=== PATIENT | female | born 1930 | race Caucasian/White ===

== ENCOUNTER 2017-01-23 07:00 | Day surgery (SDC) | payer MEDICARE, BC ==
[~2017-01-23] VITALS: Ht 167.6 cm; Wt 53.5 kg
[~2017-01-23 07:00] MED LIST: CALCIUM 500 MG1 EAC1 PO; CEPHALEXIN500 MG PO; DIGITEK125 MCG PO; DIGOXIN125 MCG; DIPHENOXYLATE-1 EACH PO; FOLIC ACID1 MG PO; FUROSEMIDE20 MG PO; LEVOTHYROXINE75 MCG PO; MOEXIPRIL HCL7.5 MG PO; NORCO 5-325 TA1 EACH PO; PRAVASTATIN SOD40 MG PO; PREDNISONE10 MG PO; PREDNISONE20 MG PO; SPIRONOLACTONE25 MG PO; SYNTHROID25 MCG; TIMOLOL MALEATE5 M1 OPTH; VITAMIN D31000 UNIT PO; XALATAN2.5 ML OPTH; XARELTO20 MG PO
[2017-01-23] MEDS ORDERED: MAPAP325 MG PO (10:12)
[2017-01-23] MEDS ORDERED: HYDROCODON-ACE1 EA10 PO (10:12)
--- NOTE | 2017-01-28 10:36 | OR ---
[facility] [address], [place] [address] Signed PREOPERATIVE DIAGNOSIS Underwent excision of a pigmented lesion in the left lower anteromedial leg by Dr. 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 She is referred for definitive re-excision.She is noted to have had melanoma in the past, undergoing excision of a left upper arm melanoma number of years ago at least 25 years ago. She has had a basal cell carcinoma of her forehead excised as well. She has other pertinent medical problems including atrial fibrillation and anticoagu l ation with Xarelto as well as chronic lymphocytic leukemia. She has had significant varicosities of the lower extremities as well. She does take prednisone 10 mg every other day currently. She is admitted to undergo excision of the melanoma site on the le f t lower leg in medial aspect with possible application of rotational flap depending on needs at time of the excision. The lesion is not directly on the anterior noel, which almost certainly requires a rotational flap or skin graft but more medial to that, for which primary closure may be a possibility. Avoidance of the rotational flap would probably be optimal, given her venous insufficiency on that side. I have prepared for an Unna boot application as well if necessary to optimize wound healing. Patient and her understand the risks of bleeding, infection, recurrence, need for additional treatment should a deeper melanoma lesion had been identified and other unforeseen complications and wished to proceed. FINDINGS The excoriated area of excision show ed no sign of suture at this time. Mild inflammation of the operative site was noted. Wide excision was undertaken with a 1 cm margin from the furthest edge of erythema related to the lesion. Additional excision was undertaken cephalad and excision of dog ears to allow for appropriate closure with most optimal cosmetic affect. PROCEDURE IN DETAIL The patient was brought to operating room, placed in supine position. She was given intravenous sedation by the oakes machine operator. Preoperative antibiotic clindamycin wa s administered. Sequential compression device was applied to the other extremity. The left leg was prepared with a chlorhexidine solution and draped sterilely. Heparin was subcutaneously administered. Photograph was taken of the primary lesion and a margin at minimum of 1 cm was marked out from the area of erythema at the base of the excision site. The longer margin was taken superior and inferiorly. Incision was made with a 15 blade down to the fascial layer of the muscular compartment. Electrocautery was u sed for hemostasis. Full-thickness excision was accomplished.There was no give of the skin and soft tissue more laterally where the tibia was noted, as was expected. Mobilization of the soft tissue and skin medially was able to be accomplished, allowing f o r primary approximation. The wound was closed in layers with interrupted 2-0 Vicryl in the deep dermal layer. Prominent dog ears were excised superiorly and inferiorly, extending the Electronically Signed By: SHUKRI GOMEZ MD 01/28/17 1036 PATIENT NAME: SAEED OBRIEN OPERATIVE REPORT DATE OF : 32 PHYSICIAN: SHUKRI GOMEZ MD REPORT #: [id number] REPORT IS CONFIDENTIAL AND NOT TO BE RELEASED WITHOUT AUTHORIZATION [address] [address] Signed incision size to approximately 9 cm but improving the cosmetic appearanc e markedly. The skin was closed with a running 5-0 nylon suture. A Mepilex silver sponge dressing was applied. The leg was cleansed, and an Unna boot applied based on her underlying varicosities so as to support wound healing. A Coban dressing was loosely applied after that. She was allowed to emerge from sedation and taken to recovery room in good condition having suffered no known complications. Blood loss minimal. Sponge, needle, and instrument counts were reported as correct x3. MD STANLEY Irwin/Evelyn /[id number] cc: MD Melo Ang MD Jeffrey Stiles, MD Electronically Signed By: SHUKRI GOMEZ MD 01/28/17 1036 PATIENT NAME: SAEED OBRIEN OPERATIVE REPORT DATE OF : 32 PHYSICIAN: SHUKRI GOMEZ MD REPORT #: [id number] REPORT IS CONFIDENTIAL AND NOT TO BE RELEASED WITHOUT AUTHORIZATION
== END 2017-01-23 11:00 | disposition home or self-care (01) ==
LOC: DS 07:00
PROVIDERS: Surgery
PROC: 0HBLXZZ Excision of Left Lower Leg Skin, External Approach (ICD-10-PCS; principal; 2017-01-23 08:15)
DX: C76.52 Malignant neoplasm of left lower limb (principal); L57.0 Actinic keratosis; I10 Essential (primary) hypertension; I48.2 Chronic atrial fibrillation; Z85.820 Personal history of malignant melanoma of skin; Z88.0 Allergy status to penicillin; Z88.2 Allergy status to sulfonamides; Z98.41 Cataract extraction status, right eye; Z98.42 Cataract extraction status, left eye; Z90.710 Acquired absence of both cervix and uterus; Z90.49 Acquired absence of other specified parts of digestive tract; Z98.890 Other specified postprocedural states
CPT/HCPCS: 00400; 82310; 88305; J2704; J3010; J3490; J7120

== ENCOUNTER 2017-06-13 16:42 | Inpatient (IN) | payer MEDICARE, BC ==
[~2017-06-13] VITALS: Ht 167.6 cm; Wt 53.0 kg
[~2017-06-13 16:42] MED LIST changes: +HYDROCODON-ACE1 EA10 PO; +MAPAP325 MG PO
[2017-06-13] MEDS ORDERED: DIGITEK125 MCG PO (18:18)
[2017-06-13] MEDS ORDERED: XARELTO20 MG PO (18:18)
--- NOTE | 2017-06-14 00:06 | NUR ---
PT ARRIVED ON FLOOR AT 2230. PT SO FAR HAD 4MG OF IV ZOFRAN AND 6.25MG IV PHENERGAN. NO VOMITING NOTED SO FAR. BOWEL TONES ARE PRESENT, ABD IS FIRM AND TENDER TO TOUCH. PT IS RESTING AT THIS TIME. IS AT BEDSIDE. PT HAS HOME MEDS IN KITS LIST.
--- NOTE | 2017-06-14 02:05 | NUR ---
PT DENIES N/V AND PAIN AT THIS TIME. PT COMPLAINES OF DIZZINESS. ALL LOBES ARE CLEAR, V/S ARE WDL, BOWEL TONES ARE PRESENT IN ALL QUADRANTS, PT IS TOLERATING ICE CHIPS SO FAR. PT SEEMS WEAK OVERALL. PT IS BACK IN BED RESTING.
--- NOTE | 2017-06-14 03:58 | NUR ---
PT IS SLEEPING AT THIS TIME.
--- NOTE | 2017-06-14 04:56 | NUR ---
ASSISTED PT TO [facility] AGAIN. PT DID NOT VOID. PT AT THIS TIME STILL HAS DIZZINESS AND ALSO VISIBLE TREMORS NOW. PT IS NOT ORIENTED TO DAY AND CIRCUMSTANCE. PERLLA WAS POSITIVE. ARM STRENGTH IS WEAK BILATERALLY, LEG STRENGTH IS MODERATE BILATERALLY.
--- NOTE | 2017-06-14 05:29 | NUR ---
PT HAD A CIWA SCORE OF 8. MD RASH WAS CALLED BECAUSE OF CIWA SCORE AND NEW ALTERED MENTAL STATUS IN REGARDS TO CIRCUMSTANCE AND DAY. ORDER FOR 1MG OF ATIVAN IV ONCE WAS GIVEN.
--- NOTE | 2017-06-14 06:47 | NUR ---
PT OVERALL HAS WORSEND THIS SHIFT SINCE ARRIVAL ON THE FLOOR. PT HAD NAUSEA AT ARRIVAL, 4MG OF ZOFRAN AND THEN 6.25MG OF PHENERGAN WAS GIVEN. AT AROUND 0500 PT STARTED TO HAVE TREMORS AND WAS DISORIENTED TO SITUATION AND DAY. THIS WAS NEW FOR THIS PT. CIWA WAS DONE BECAUSE PT IS A DAILY DRINKER, HER SCORE WAS AN 8. MD RASH WAS CALLED. 1MG OF ATIVAN WAS GIVEN. PT AT THIS TIME IS SLEEPING. BOWEL TONES ARE PRESENT IN ALL QUADRANTS, ABD IS FIRM AND TENDER TO TOUCH.
--- NOTE | 2017-06-14 07:10 | NUR ---
BEDSIDE HANDOFF REPORT RECEIVED FROM SERVICES EXECUTIVE RN. PT SLEEPING LEFT UNDISTURBED, AT BEDSIDE. PT ON 3L NC, O2 SATS 98%. IV FLUIDS INFUSING AT 100 ML/HR.
--- NOTE | 2017-06-14 07:32 | EKG ---
[facility] [address] [facility] [place] [address] Signed Atrial fibrillation with slow ventricular response Right superior axis deviation Low voltage QRS Cannot rule out Anteroseptal infarct (cited on or before 16-JAN-2017) Abnormal ECG When compared with ECG of 16-JAN-2017 13:50, T wave inversion less evident in Inferior leads T wave inversion no longer evident in Lateral leads Confirmed by MILTON CARLSON MD ([id number]) on 06/14/2017 7:32:21 AM Electronically Signed By: MILTON CARLSON MD 06/14/17 0732 PATIENT NAME: SAEED OBRIEN Electrocardiogram DATE OF : 32 PHYSICIAN: MILTON CARLSON MD REPORT #: [id number] REPORT IS CONFIDENTIAL AND NOT TO BE RELEASED WITHOUT AUTHORIZATION
--- NOTE | 2017-06-14 07:50 | NUR ---
CALLED TO PT ROOM, CONCERN FROM CASE MANAGEMENT. VSS. PT DROWSY, AROUSABLE TO VOICE, ORIENTED X3. PT DENIES NUMBNESS AND TINGLING, LEFT FOOT NUMBNESS AT BASELINE. PULSES PALPABLE, SKIN WARM TO THE TOUCH. PT CONTINUES TO COMPLAINT NAUSEA. IV FLUIDS INFUSING NS AT 100 ML/HR. LUNG SOUNDS CLEAR, O2 SATS 98% ON 3L NC. BOWEL TONES ACTIVE. CMS INTACT. PT DENIES PAIN. PT DENIES NEEDS AT THIS TIME, AT BEDSIDE.
--- NOTE | 2017-06-14 08:45 | NUR ---
PT BEING ASSISTED TO BEDSIDE COMMODE WITH ASSISTANT TRACK AND FIELD COACH. PT WITH BLACK WATERY EMESIS. PT GIVEN 4 MG IV ZOFRAN. GASTRIC OCCULT TST POSITIVE. PT ASSISTED BACK TO BED. ORDER FOR ABD ULTRASOUND. AT BEDSIDE.
--- NOTE | 2017-06-14 09:30 | NUR ---
PT WITH EMESIS, 200 ML OF BROWN WATERY FLUID. GIVEN 6.25 MG PROMETHAZINE IV, DISCUSSED SIDE EFFECT OF DOWSINESS. DAUGHTER AT [facility]. PT DENIES THER NEEDS AT THIS TIME.
--- NOTE | 2017-06-14 10:42 | NUR ---
PT ASSISTED TO BATHROOM. PT MOANING WITH MOVEMENT, DISCUSSED PAIN MANAGEMENT. PT REQUESTING PAIN MEDICATION, 0.5 MG IV DILAUDID GIVEN. PT RESTING IN BED. FAMILY AT BEDSIDE.
--- NOTE | 2017-06-14 12:00 | NUR ---
PT RESTING IN BED. PT STATES PAIN IS BETTER. PT DENIES NAUSEA AT THIS TIME. PT DOWSY AFTER MEDICATIONS, AROUSABLE TO VOICE. PT LUNG SOUNDS CLEAR, ON 3L NC O2 SATS 97-98%. PT HR IRREGULAR, TELEMETRY STARTED PER ORDER. BOWEL TONES ACTIVE. NO ACUTE CHANGES AT THIS TIME. PT DENIES OTHER NEEDS AT THIS TIME.
--- NOTE | 2017-06-14 12:10 | NUR ---
PATIENT IS SLEEPING DAUGHTER IS IN ROOM. JUST STEPPED OUT FOR A LITTLE BIT.
--- NOTE | 2017-06-14 12:36 | NUR ---
PT ASLEEP, DAUGHTER IRIS SITTING WITH PT. I CAN TELL SHE IS VERY WORRIED, IRIS MENTIONED THAT SHE WAS WAITING FOR ULTRASOUND RESULTS. SHE SENT HER DAD HOME TO GET SOME REST. EXTENDED A BLESSING, WILL CONTINUE TO FOLLOW
--- NOTE | 2017-06-14 14:51 | NUR ---
PT RESTING IN BED. PT DENIES PAIN AT THIS TIME. COMPLAINT OF NAUSEA, RECENTLY RECEIVED ZOFRAN, PROVIDED COOL CLOTH TO BACK OF NECK. PT DENIES OTHER NEEDS AT THIS TIME.
--- NOTE | 2017-06-14 15:16 | NUR ---
PT CONTINUES TO BE NAUSEATED. GIVEN 6.25 MG IV PROMETHAZINE. AT BEDSIDE. DENIES OTHER NEEDS AT THIS TIME.
--- NOTE | 2017-06-14 16:45 | NUR ---
PT RESTING IN BED. PT RATING PAIN 0/10 AT REST. PT ON 3L NC, LUNG SOUNDS CLEAR. PT CONTINUIES TO BE DROWSY AFTER PROMETHAZINE. CONTINUES TO HAVE NAUSEA, RECEIVING PRN ZOFRAN AND PROMETHAZINE, BOWEL TONES ABSENT. IV FLUIDS INFUSING AT 100 ML/HR. PT NPO AT THIS TIME. FAMILY UPDATED ON PLAN OF CARE. DENIES NEEDS AT THIS TIME.
--- NOTE | 2017-06-14 17:24 | NUR ---
PT BOWEL TONES NOW ABSENT. PT HAVING PAIN WITH MOVEMENT, ONCE IN BED RATING PAIN 0/10. MD DR. CARLSON AND DR. GOMEZ NOTIFIED OF CHANGE IN PT CONDITION. FAMILY AT BEDSIDE.
--- NOTE | 2017-06-14 19:00 | NUR ---
BEDSIDE REPORT RECEIVED FROM YONI HI. PT SITTING UP IN BED, SPO2 97% ON 3L NC, HR 114. IVF BOLUS, AND CLINDAMYCIN INFUSING WNL. PT BOWEL TONES ABSENT X 4. PT ABDOMEN VERY TENDER WITH LIGHT PALPATION THROUGHOUT. PT ON TELE. PT DROWSY. DR. GOMEZ IN TO SEE PT, CONSENT SIGNED BY PT'S , FAMILY PRESENT IN ROOM. DISPENSARY ATTENDANT NICHOL IN ROOM PROVIDING SURGICAL PREP SCRUB. CALL LIGHT IN REACH.
--- NOTE | 2017-06-14 19:00 | NUR ---
MD TO BEDSIDE. PLAN TO BEGIN LR FLUID BOLUS, START CLINDAMYCIN, PREP PT FOR OR.
--- NOTE | 2017-06-14 19:13 | NUR ---
SIGNED CONSENT IN CHART. REVIEWED WITH . ABX INFUSING, LR BOLUS INFUSING, CHLORAHEXIDINE BATH COMPLETED. BEDSIDE HANDOFF REPORT GIVEN.
--- NOTE | 2017-06-14 19:45 | NUR ---
PT OFF FLOOR WITH SURGERY RN BY HOSPITAL BED. FAMILY TOOK PT'S BELONGINGS TO WAITING ROOM AREA.
--- NOTE | 2017-06-14 21:30 | NUR ---
PT ARRIVED TO FLOOR FROM SURGERY, OR NURSES, SINTERING PRESS OPERATOR, AND DR. GOMEZ AT BEDSIDE. PT IS INTUBATED, BVM IS CONNECTED TO OXYGEN. R.T. IN ROOM TO SWITCH PT OVER TO VENTILATOR. SINTERING PRESS OPERATOR ADMINISTERED KETAMINE AND PROPOFOL IV. ART LINE IN PLACE. VENT SETTINGS: CMV, FIO2:98%, PS:0, VT:470, PEEP:50. BILATERAL WRISTS PLACED IN RESTRAINTS PER DR. GOMEZ TO PREVENT PT FROM DISLODGING TUBE AND POTENTIAL SELF INJURY. PER DR. GOMEZ RASS SCORE GOAL IS -2, PT CURRENTLY AT -4. LUNGS SOUND CLEAR. HR REGULAR. BOWEL TONES ABSENT, ABDOMEN FEELS SOFT. MIDLINE INCISION COVERED WITH MEPILEX AND GAUZE THAT ARE C/D/I. SCD'S IN PLACE. ELMORE IN PLACE, CHANGED BAG TO UROMETER.
--- NOTE | 2017-06-14 22:40 | NUR ---
STARTED MAINTENANCE IV FLUIDS AND PROPOFOL AT 5MCG/KG/MIN. VENT SETTINGS CHANGED TO: SIMV, PS:10, VT: 470, PEEP:5 ABG DRAWN FROM ARTERIAL LINE.
--- NOTE | 2017-06-14 23:50 | NUR ---
PT MOVING ARMS AND LEGS, PROPOFOL INCREASED TO 10MCG/KG/MIN. NOTIFIED DR. GOMEZ OF THIS AND THAT PT'S BP READINGS HAVE BEEN SOFT, 80S/40S. RECEIVED ORDER TO WEAN OFF PROPOFOL AND ADD TO EMAR: 0.5-1.0MG IV Q1 HOUR PRN SEDATION AND 1-10MG IV MORPHINE Q1 HOUR PRN PAIN/SEDATION. PROPOFOL TURNED OFF, RASS -2. 1MG IV ATIVAN ADMINISTERED.
--- NOTE | 2017-06-15 | NUR ---
R.T. IN TO PROVIDE ORAL CARE, SUCTIONING, AND REPOSITION TUBE TO LEFT SIDE OF MOUTH. CHECKED RESTRAINTS. GOOD CAP REFILL. WILL CONTINUE TO MONITOR.
--- NOTE | 2017-06-15 01:00 | NUR ---
NO URINE OUT IN LAST HOUR, PREVIOUS HOUR ONLY HAD 6ML. PER DR. GOMEZ, 500ML LR BOLUS ADMINISTERED. RASS: -3. WILL CONTINUE TO MONITOR.
--- NOTE | 2017-06-15 02:00 | NUR ---
IN TO CHECK ON PT. RASS -4. NO APPARENT DISTRESS. RESTRAINTS CHECKED, CMS INTACT. PLACED PILLOW UNDER RIGHT HIP TO SLIGHTLY ROLL PT MORE TO LEFT SIDE. WILL CONTINUE TO MONITOR.
--- NOTE | 2017-06-15 03:00 | NUR ---
IV ABX INFUSION STARTED. RASS: -4. BP:90/44(90) ARTERIAL: 76/39(50). HR:90. RR:16, SPO2:100%. VENT: SIMV, FIO2:40, PS:10, VT: 470, PEEP:5, PIP:20 ETCO2:31. UO WAS 15 THIS HOUR, WILL START ANOTHER 500ML LR BOLUS ONCE CLINDAMYCIN INFUSION IS COMPLETED.
--- NOTE | 2017-06-15 03:30 | NUR ---
ASSESSMENT COMPLETED. PT REMAINS OBTUNDED, RASS:-4. LUNGS SOUND CLEAR. HR IRREGULAR. BOWEL TONES ABSENT. ABDOMEN APPEARS MILDLY DISTENDED, FEELS MORE FIRM THAN EARLIER, PT GRIMACES UPON PALPATION OF ABDOMEN. VENT SETTINGS UNCHANGED, WILL CONTINUE TO MONITOR.
--- NOTE | 2017-06-15 04:15 | NUR ---
CALLED AND UPDATED DR. GOMEZ ON PT'S LOW URINE OUTPUT AND MOST RECENT BP READINGS. I ALSO LET HIM KNOW THAT I REPEATED THE 500ML LR BOLUS X2. NEW ORDER RECEIVED: CBC, CHEM2, AND MAGNESIUM. HE ALSO STATED TO ORDER TYPE AND CROSS IF NOT ALREADY DONE, WHICH IT HAD BEEN. NEW ORDERS FOR ONE TIME 1L LR BOLUS OVER 30MIN, AND IF UO DOES NOT IMPROVE AFTER THAT TO ADMINISTER A ONE TIME DOSE OF 20MG IV LASIX. LABS DRAWN FROM ARTERIAL LINE AND SENT. BOLUS STARTED. PT REPOSITIONED IN BED ONTO RIGHT SIDE AND R.T. IN TO DO ORAL CARE AND SUCTIONING. WILL CONTINUE TO MONITOR.
--- NOTE | 2017-06-15 05:37 | NUR ---
URINE OUTPUT NOT IMPROVING AFTER 1L LR BOLUS COMPLETED. 20MG IV LASIX ADMINISTERED. PT APPEARED PAINFUL, GRIMACING AND MOVING HANDS, 4MG IV MORPHINE ADMINISTERED. WILL CONTINUE TO MONITOR.
--- NOTE | 2017-06-15 06:00 | NUR ---
CALLED AND UPDATED DR. GOMEZ ON PT'S LOW BP AND LOW UO AFTER RECEIVING 1L LR BOLUS AND 20MG IV LASIX. UPDATED HIM ON PT'S LAB RESULTS WELL. NEW ORDERS RECEIVED TO ADMINISTER 1 UNIT ALBUMIN AND A ONE TIME DOSE OF 2GM IV MAGNESIUM.
--- NOTE | 2017-06-15 06:15 | NUR ---
STARTED ALBUMIN AND MAGNESIUM INFUSIONS. CHECKED RESTRAINTS. R.T. IN TO PROVIDE ORAL CARE AND SUCTIONING. REPOSITIONED PT TO BE FLAT IN BED. VENT: SIMV, FIO2:40%, PS:10, VT:470, PEEP:5 ETCO2:31, PIP:18 RECHECKED BP: 88/42 (52), ARTERIAL: 49/27(36)
--- NOTE | 2017-06-15 07:00 | NUR ---
CALLED DR. GOMEZ TO UPDATE HIM THAT INTERVENTIONS DO NOT SEEM TO BE MAKING A DIFFERENCE WITH PT'S BP AND UO. NEW ORDERS RECEIVED TO START PT ON NOREPINEPHERINE DRIP TO MAINTAIN SBP>90. I ALSO INFORMED HIM THAT HER PHOSPHORUS WAS LOW AND RECEIVED AND ORDER TO START HER ON POTASSIUM PHOSPHATE IV INFUSION.
--- NOTE | 2017-06-15 07:49 | NUR ---
REPORT RECIEVED FROM ZIPPER SLIDE ATTACHER, PATIENT RESTING IN BED ON BACK. AWAKENS TO VOICE, NO EYE CONTACT. RASS SCORE OF -2, -3. ABDOMEN SOFT AND TENDER, DRESSING C/D/I, LEVOPHED GTT AT 5MCG/MIN AND ART LINE JUST ZEROED AND USED FOR ABG DRAW. VENT SETTINGS UNCHANGED FROM EARLIER. TV 470, 40% FIO2, RR16, PEEP 5 AND PS 10.
--- NOTE | 2017-06-15 08:12 | NUR ---
DR CARLSON IN ROOM ASSESSING PATIENT, RT SUSSY HERE WITH TITUS RT. WEANING TRIALS STARTED.
--- NOTE | 2017-06-15 08:13 | NUR ---
OF PATIENT HERE TO SAY VERONICA. ORAL CARE COMPLETED.
--- NOTE | 2017-06-15 08:21 | NUR ---
EDUCATION TO FAMILY AND PATIENT.
--- NOTE | 2017-06-15 08:25 | NUR ---
Assisted Toni-RN in positioning pt onto right side.
--- NOTE | 2017-06-15 08:37 | NUR ---
DR GOMEZ IN TO SEE PATIENT, UPDATES GIVEN TO HIM VERBALLY.
--- NOTE | 2017-06-15 09:37 | NUR ---
FAMILY IN ROOM, PATIENT ACTING MORE PAINFUL. 4MG MORPHINE GIVEN SLOW IV PUSH.
--- NOTE | 2017-06-15 10:00 | CONS ---
[facility] [address], [place] [address] Signed DATE OF CONSULTATION: 06/14/2017 CONSULTING PHYSICIAN: Shukri Gomez MD PROBLEM: Abdominal pain, uncertain etiology. HISTORY OF PRESENT ILLNESS: This 86-year-old white woman is chronically anticoagulated with Xarelto for atrial fibrillation. She is known to me from the past having undergone re-excision of a melanoma on her leg and I have seen her over the past many years for various things. She is known to have had hysterectomy and appendectomy in the distant past. Yesterday, at about 2 p.m., she had rather significant generalized abdominal pain. It worsened enough that she presented to the emergency room where she was evaluated by Dr. Clark. The pain was not focal and generalized and she had associated nausea and vomiting. She did not yesterday take her Xarelto and certainly did not take it today. She was admitted by the hospitalist, Dr. Lopez, for further evaluation. Close observation found her to be worsening, not improving. Notably, her initial white count was 16.3 with hematocrit 47.0, band forms 4% at that time. Her urinalysis was essentially normal. Digoxin level therapeutic at 0.99. Chem profile overall normal, but bilirubin elevated at 2.0. Lipase and amylase were not obtained. Coag studies showed a pro-time of 15.9 with an INR of 1.3 and white count as described 16.3 with hematocrit of 47 and platelet count of 141,000. Today, her symptoms are not better, indeed worsened. Her white count is now elevated at 21.4, platelets 134,000. Her admit troponin levels were less than 0.010. A CT scan performed at the outset of her evaluation was essentially normal. The SMA and celiac axis appeared to be patent and without sign of embolic phenomenon. There was no sign of edema of the bowel or other issue. I have recommended some time earlier today the gallbladder ultrasound be performed, which was accomplished at approximately 10:20 this morning, showing a nondistended gallbladder with multiple nodules within the gallbladder consistent with adherent stones or polyps. The gallbladder wall was visible, but not particularly objectively thickened. The common bile duct was normal in caliber. Jasmine sign was considered negative. PAST MEDICAL HISTORY: 1. Atrial fibrillation with chronic anticoagulation. 2. History of melanoma excision. 3. Penicillin allergy (severe with inability to breathe). Electronically Signed By: SHUKRI GOMEZ MD 06/15/17 [facility] PATIENT NAME: SAEED OBRIEN CONSULTATION DATE OF : 32 PHYSICIAN: SHUKRI GOMEZ MD REPORT #: [id number] REPORT IS CONFIDENTIAL AND NOT TO BE RELEASED WITHOUT AUTHORIZATION [facility] [address], [place] [address] Signed 4. Sulfa medication allergy. 5. Chronic lymphocytic leukemia. 6. History of partial bladder prolapse with pessary. 7. History of chemotherapy with Rituxan. 8. Hepatitis A history. REVIEW OF SYSTEMS: The patient is unable to provide much of this due to somnolence. Her and daughter who are present with her note she has had no chest pain or shortness of breath, particularly. She has mainly had nausea and persistent abdominal pain. PHYSICAL EXAMINATION: GENERAL: Very subdued, very thin, white woman who looks to be quite unwell. HEENT: Mucous membranes are markedly dry. NECK: Trachea is midline. I detect no carotid bruit. CHEST: Shows diminished breath sounds. HEART: Regular. ABDOMEN: Shows generalized significant peritonitis with guarding at this time. EXTREMITIES: Show no clubbing or cyanosis. There is mild low-grade edema with obvious varicosities. DIAGNOSTIC DATA: I reviewed her ultrasound report as well as the ultrasound images, showing relatively benign-appearing gallbladder though the wall is visible, which in my opinion is usually abnormal. The CT scan was reviewed, which showed a thickened gallbladder wall to my exam. No sign of intrahepatic ductal dilatation or free air. No sign of small-bowel obstruction proper. The liver itself was reasonably normal in appearance. She has a sizable right pleural effusion also noted. ASSESSMENT: She has generalized peritonitis and is doing poorly. Additional fluids are needed at this time and intravenous antibiotics are needed as well. It may well be that she has cholecystitis as an underlying etiology for particularly given her right-sided pleural effusion and findings on ultrasound of the gallbladder itself. I have conferred with the pharmacist (Chivo) who notes a 24-hour time frame for clearance of her anticoagulant. Complicating her situation is inability to cross-match blood for her blood type due to a cold agglutinins problem. I have discussed these findings with Dr. Lopez and subsequently the patient and her , Cesar, and daughter, Harleen. I would recommend laparoscopy, possible laparoscopic cholecystectomy or laparotomy as necessary to remedy this problem. Without doubt, she will need to be in the intensive care unit postoperatively, possibly may need to remain intubated. Electronically Signed By: SHUKRI GOMEZ MD 06/15/17 1000 PATIENT NAME: SAEED OBRIEN CONSULTATION DATE OF : 32 PHYSICIAN: SHUKRI GOMEZ MD REPORT #: [id number] REPORT IS CONFIDENTIAL AND NOT TO BE RELEASED WITHOUT AUTHORIZATION [facility] [address] [place] [address] Signed She has significant comorbidities including right atrial enlargement; chronic lymphocytic leukemia, under treatment; chronic atrial fibrillation. However, I believe her to be salvageable, though definitely has increased risks of significant complications or even demise related to this. It is notable that her liver has an appearance on CT scan that is suggestive of cirrhotic changes, though she certainly has no coagulopathy and no true reason for a cirrhosis or anything of that sort and this may simply remain a senescent liver with artifactual distortion. There is no evidence upon my review of visceral arteries having embolism or thrombosis in any way, though the extent of her tenderness and so forth would be suggestive of possible ischemic bowel as well. I think that is unlikely, but not impossible obviously. I discussed in detail with the patient and her family the risks of bleeding, infection, need for unforeseen procedures, need for laparotomy and of course possibility of failure to cure the problem despite her best efforts to do so. They understand and wish to proceed. MD STANLEY Irwin/GRACE /[id number] cc: Ameena Lopez MD Electronically Signed By: SHUKRI GOMEZ MD 06/15/17 1000 PATIENT NAME: SAEED OBRIEN CONSULTATION DATE OF : 32 PHYSICIAN: SHUKRI GOMEZ MD REPORT #: [id number] REPORT IS CONFIDENTIAL AND NOT TO BE RELEASED WITHOUT AUTHORIZATION
--- NOTE | 2017-06-15 10:00 | OR ---
[facility] [address] [place], [place] [address] Signed DATE OF OPERATION: 06/14/2017 SURGEON: Shukri Gomez MD PREOPERATIVE DIAGNOSES: Generalized acute peritonitis, possible cholecystitis. POSTOPERATIVE DIAGNOSES: 1. Hemoperitoneum. 2. Infarcted mid small bowel secondary to internal hernia (closed loop obstruction). PROCEDURES: 1. Laparoscopy (diagnostic). 2. Laparotomy with small bowel resection, end anastomosis, and lysis of adhesion ([id number] functional end-to-end). 3. Peritoneal lavage and evacuation of hemoperitoneum. 4. Attempted right internal jugular and right subclavian line placement (failed). CUT OFF SAW OPERATOR METAL: Nurse. ANESTHESIA: General endotracheal, Nery Godoy CRNA. INDICATION: This 86-year-old white woman was admitted yesterday to the service of Dr. Lopez with generalized abdominal pain. A CT scan was unrevealing as to the source of the problem. She had an elevated white count yesterday, worsened today and with markedly worsening symptoms. I saw her late in the evening approximately 7o'clock upon consultation having her had undergone a gallbladder ultrasound in the late morning showing some gallstones. She is known to take Xarelto for chronic atrial fibrillation. Her CT scan and ultrasound performed were uncertain as to diagnosis. The clinical exam showed rigid abdomen, generalized peritonitis without question. On that basis, I recommended to Dr. Lopez and the patient and her family immediate exploration despite her ongoing use of Xarelto. She was last dosed with Xarelto just a bit more than 24 hours ago. The risks of bleeding, infection, need for open operation instead of a laparoscopic colon were all discussed in detail. The initial plan was for that of laparoscopic Electronically Signed By: SHUKRI GOMEZ MD 06/15/17 1000 PATIENT NAME: SAEED OBRIEN OPERATIVE REPORT DATE OF : 32 PHYSICIAN: SHUKRI GOMEZ MD REPORT #: [id number] REPORT IS CONFIDENTIAL AND NOT TO BE RELEASED WITHOUT AUTHORIZATION [facility] [address] [place], [place] [address] Signed cholecystectomy for possible gangrenous cholecystitis given her clinical symptoms and ultrasonographic findings, but other indicated procedures were permissible obviously. FINDINGS: On laparoscopy, bloody fluid of the peritoneal cavity was noted. Examination of the lower abdomen with the laparoscope demonstrated a segment of bowel. On that basis, immediate conversion to laparotomy was performed through midline incision revealing an internal herniation and complete closed loop obstruction of a segment of small bowel with complete infarction, but without perforation. There was generalized hemoperitoneum, likely related to her Xarelto use and the infarcted bowel. There was no actual bleeding lesion otherwise. Segmental resection of 2 feet of small bowel was undertaken with a [id number] functional end-to-end stapled anastomosis. Lavage of the abdomen was undertaken, removing the old blood. Blood loss from the old blood was about 300 mL. The liver, though generous, did not show any signs of cirrhosis or any other problem. The gallbladder had mild chronic inflammation, no acute inflammation. The stomach and remaining small bowel and colon were normal. Pelvic organs included the left salpinx and possibly the ovary, though this is uncertain. DESCRIPTION OF PROCEDURE: The patient was brought to the operating room, given a general endotracheal anesthetic. She was somewhat hemodynamically precarious and small amounts of pressor agent were used. Fluid resuscitation had been undertaken prior to operation and a Pratt catheter was placed. The abdomen was prepared with a chlorhexidine solution and draped sterilely. An infraumbilical incision was made and using an open Ry cannula technique, pneumoperitoneum was achieved to a level of 14 mmHg of carbon dioxide gas. Intraabdominal inspection showed generalized hemoperitoneum. There was a segment of ischemic bowel immediately noted. Indeed, it was black and purple and clearly . Delay of further interrogation of the abdomen by attempting laparoscopic approach was deemed completely inadvisable and the laparoscope was removed and immediate midline laparotomy performed. Found within the abdomen was a considerable amount of old liquified blood throughout. A small bowel that was ischemic was associated with far more small bowel also necrotic and it was found that she had an adhesive band causing an internal closed loop obstruction. This band was identified. The index finger divided with electrocautery, freeing the bowel loops to allow for evisceration of the small bowel from the abdomen. A clear demarcation of bowel versus live bowel was noted. This appeared to be in the mid small bowel. Immediate scoring of the mesentery was undertaken in application of hemostats, dividing the vascular pedicles quickly. A PATRICIA stapling device was used to transect the bowel and 2 areas of complete viability. The amount resected was 2 feet. With resection, she had prompt and immediate improvement of her hemodynamics. Electronically Signed By: SHUKRI GOMEZ MD 06/15/17 1000 PATIENT NAME: SAEED OBRIEN OPERATIVE REPORT DATE OF : 32 PHYSICIAN: SHUKRI GOMEZ MD REPORT #: [id number] REPORT IS CONFIDENTIAL AND NOT TO BE RELEASED WITHOUT AUTHORIZATION [address] [address] Signed The vascular pedicles were secured with 2-0 silk ties. A [id number] functional end-to-end enteroenterostomy was undertaken with a 75 mm PATRICIA stapling device. The anvil ends through which the limbs of the stapler passed were oversewn with interrupted 3-0 silk suture. The mesenteric defect was secured with interrupted 3-0 silk suture as well. Irrigation was undertaken throughout the peritoneal cavity evacuating old blood. Examination of the colon showed firm hard stool in the transverse colon and a floppy transverse colon of that. There appeared to be some remnants of pelvic organs including the left salpinx that could be told, but generally speaking, most intraabdominal organs were rather atretic, consistent with her advanced age of 86 years. The gallbladder was mildly dilated and mildly chronically inflamed, but not acutely inflamed and it was left in situ. The liver itself was somewhat generous, but did not have cirrhotic changes as I had considered based on review of the CT scan. Once the peritoneal cavity was free of blood, plans were made for closure. The midline fascia was reapproximated with running bidirectional #1 PDS suture. The subcutaneous tissue was irrigated and clips were used to secure the skin. A Mepilex silver sponge dressing and an OpSite were applied. The count was found to be off by one hemostat. On that basis, a plain abdominal x-ray was performed showing no evidence of intraabdominal retained instruments. It was later recalled that a hemostat had been used to help clean the umbilicus and the count was ultimately found to be correct. Given her acute critical illness, a central line was deemed advisable. A left-sided arterial line had been placed by the shale processing technician. Sterile drape in the neck and upper torso was undertaken and attempts at access to the right internal jugular vein were successful for withdrawing blood, but not in a sustained way and therefore was unsuccessful. A right subclavian approach was then attempted, again showing no ability to pass wire in a meaningful way. On that basis, further attempts were abandoned. It was deemed most appropriate to leave the patient intubated and transferred to the intensive care unit for further critical care management. Blood loss was 300 mL, virtually all of it related to old blood within the abdomen. The sponge, needle, and instrument counts were ultimately considered correct. Shukri Gomez MD Electronically Signed By: SHUKRI GOMEZ MD 06/15/17 1000 PATIENT NAME: SAEED OBRIEN OPERATIVE REPORT DATE OF : 32 PHYSICIAN: SHUKRI GOMEZ MD REPORT #: [id number] REPORT IS CONFIDENTIAL AND NOT TO BE RELEASED WITHOUT AUTHORIZATION [facility] [address] [facility] [place], [place] [address] Signed STANLEY/GRACE /[id number] cc: MD Dr. Azam Bender [facility] Electronically Signed By: SHUKRI GOMEZ MD 06/15/17 1000 PATIENT NAME: SAEED OBRIEN OPERATIVE REPORT DATE OF : 32 PHYSICIAN: SHUKRI GOMEZ MD REPORT #: [id number] REPORT IS CONFIDENTIAL AND NOT TO BE RELEASED WITHOUT AUTHORIZATION
--- NOTE | 2017-06-15 10:14 | NUR ---
AT 1005 LEVOPHED GTT TURNED UP TO 6MCG/MIN BECAUSE OF LOW BP.
--- NOTE | 2017-06-15 11:15 | NUR ---
TURNED TO LEFT SIDE, LEVOPHED GTT TURNED DOWN TO 5MCG/MIN BECAUSE BP UP TO 124/48
--- NOTE | 2017-06-15 12:11 | NUR ---
RT FINISHED WORKING WITH PATIENT AND PATIENT NOT READY FOR EXTUBATION CURRENTLY. CONTINUING ON SIMV SETTING. PIP HAS BEEN 10. DR CARLSON NOTIFIED VIA PHONE CALL. DR GOMEZ HERE ALSO. UPDATED ON PATIENT STATUS.
--- NOTE | 2017-06-15 12:15 | NUR ---
DR GOMEZ UPDATED ON THE LAST URINE OUTPUT OF ONLY 7ML FOR THE HOUR. NO FURTHER ORDERS AT THIS TIME.
--- NOTE | 2017-06-15 12:29 | NUR ---
BOTH DR CARLSON AND DR GOMEZ IN ROOM DISCUSSING CARE WITH FAMILY MEMBERS. PLAN TO PLACE A CENTRAL LINE TODAY. I AM ASSESSING IV SITE EVERY 15 MINUTES PER LEVOPHED PROTOCOL USING PERIPHERAL SITE.
--- NOTE | 2017-06-15 13:45 | NUR ---
FAMILY IN ROOM, PATIENT SLEEPING NOW. LEVOPHED GTT CONTINUES AT 6MCG/MIN, BP 128/45 HR 95. VENT SETTINGS UNCHANGED.
--- NOTE | 2017-06-15 14:09 | NUR ---
EDUCATION PROVIDED TO FAMILY ABOUT IV'S. PATIENT HAS LEVOPHED INFUSING INTO LEFT FOREARM IV. SITE ASSESSED EVERY [address] GOMEZ PLANNING TO PLACE CENTRAL LINE TODAY.
--- NOTE | 2017-06-15 16:00 | NUR ---
LEVOPHED TURNED DOWN FROM 6MCG/MIN TO 5MCG/MIN BECAUSE BLOOD PRESSURE 135/53
--- NOTE | 2017-06-15 16:31 | NUR ---
JUST FINISHED GIVING PATIENT A BED BATH WITH ASSIST FROM DELFINA GANT. SARA CARE AND CATH CARE COMPLETED. NEW LINENS GIVEN, HAIR WASHED, ORAL CARE DONE. WARM BLANKETS APPLIED TO FEET AND HANDS. FAMILY BACK INTO ROOM. AT 1500 I RACHEL BLOOD FROM ART LINE, FLUSHED WITH NS.
--- NOTE | 2017-06-15 17:07 | NUR ---
DR GOMEZ HERE TO ASSESS FOR CENTRAL LINE. LEVOPHED DROPPED DOWN TO 3MCG/MIN TO TEST FOR NEED FOR IT. BP IS 109/47
--- NOTE | 2017-06-15 17:50 | NUR ---
DR GOMEZ IN TO SEE PATIENT, CENTRAL LINE PLACED. LEFT SUBCLAVIAN.
--- NOTE | 2017-06-15 17:52 | NUR ---
PORTABLE CHEST XRAY HERE TO CONFIRM PLACEMENT.
--- NOTE | 2017-06-15 18:11 | NUR ---
MOVED TO LEFT SIDE. RESTING WITH EYES CLOSED, AWAKENS TO VOICE. RASS -2
--- NOTE | 2017-06-15 18:40 | NUR ---
propofol gtt started at 5 mcg/kg/min. family in room. ventilator settings changed to CMV per RT. Radiologist called and notified me of a small pneumo present in upper left chest. I am notifying DR Medina.
--- NOTE | 2017-06-15 18:46 | NUR ---
NEW ORDERS RECIEVED CHEST XRAY IN AT 1915 AND HAVE MINI CHEST TUBE SETUP KIT AT BEDSIDE. ALSO MONITOR FOR ANY CHANGES IN RESPIRATORY STATUS.
--- NOTE | 2017-06-15 19:00 | NUR ---
PROPOFOL UP TO 7.5MCG/KG/MIN, LEVOPHED UP TO 5MCG/MIN. FAMILY IN ROOM.
--- NOTE | 2017-06-15 19:05 | NUR ---
STARTING TO BE MORE AGITATED. PROPOFOL GTT INFUSING. DENYING PAIN.
--- NOTE | 2017-06-15 19:10 | NUR ---
LEVOPHED IV SITE WAS ASSESSED EVERY 15 MINUTES AND FOUND TO HAVE NO ISSUES. NOW IV'S ARE SALINE LOCKED AND USING ALL 3 PORTS OF THE CENTRAL LINE. PLEASE SEE PRINT OUT IN CHART FOR ALL VITAL SIGNS FROM THIS SHIFT.
--- NOTE | 2017-06-15 19:46 | NUR ---
REPORT RECEIVED FROM ORA VALLEJO. PT IS SITTING UP IN BED, AWAKE AND RESPONSIVE. ANSWERS QUESTIONS WITH YES OR NO, SHAKES HEAD NO SHE IS NOT IN PAIN AT THIS TIME. PROPFOL GTT INFUSING AT 7.5 MCG/KG/MIN AND LEVOPHED GTT INFUSING AT 5 MCG/MIN.
--- NOTE | 2017-06-15 20:11 | NUR ---
CXR REPORT CALLED TO DR GOMEZ, ORDER GIVEN TO REPEAT CXR IN ONE HOUR.
--- NOTE | 2017-06-15 20:20 | NUR ---
RT IN TO DO ORAL CARE AND REPOSITIONED ETT.
--- NOTE | 2017-06-15 20:40 | NUR ---
PT IS AWAKE, WITH EYES OPEN. PROPOFOL GTT TURNED UP TO 10MCG/MIN
--- NOTE | 2017-06-15 21:04 | NUR ---
4MG IV MORPHINE GIVEN FOR PAIN, PT WINCING WITH REPOSITIONING. XR IN TO DO CXR.
--- NOTE | 2017-06-16 00:10 | NUR ---
ASSESSMENT DONE AND PT REPOSITIONED UP IN BED. NODS YES THAT SHE IS HAVING ABDOMINAL PAIN, 4MG IV MORPHINE GIVEN. HR 80'S, BP 103/50 MAP 61, ETCO2 33, SPO2 100%.
--- NOTE | 2017-06-16 00:35 | NUR ---
RT IN TO DO ORAL CARE AND REPOSITION ETT.
--- NOTE | 2017-06-16 03:54 | NUR ---
PT AWAKENS AND IS PULLING AT RESTRAINTS, SEEMS UNCOMFORTABLE WITH ETT. PROPOFOL DRIP TITRATED UP AND IV MORPHINE 4MG GIVEN. PT QUICKLY BACK TO SLEEP. ASSESSMENT DONE, ABD REMAINS UNCHANGED, STILL VERY TENDER, NOT GETTING ANY MORE DISTENDED.
--- NOTE | 2017-06-16 04:41 | NUR ---
REPOSITIONED UP IN BED, PT AWAKENS AND ANSWERS QUESTIONS THEN BACK TO SLEEP. RT IN TO DO ORAL CARE AND REPOSITION ETT.
--- NOTE | 2017-06-16 06:10 | NUR ---
PT REPOSITIONED UP IN BED, DR CARLSON IN TO SEE PT, NEW ORDERS GIVEN FOR MAGNESIUM AND PHOSPHORUS REPLACEMENT, MAGNESIUM RIDER STARTED INFUSING. PT GRIMACING WITH MOVEMENT, 4MG IV MORPHINE GIVEN. RT IN TO DO CHECK ON PT.
--- NOTE | 2017-06-16 08:14 | NUR ---
CVP LINE SETUP THIS AM. CVP READING -1 TO 0 AT TIMES AFTER ZEROED.
--- NOTE | 2017-06-16 09:02 | NUR ---
DR GOMEZ INTO SEE PT THIS AM, NEW ORDERS RECEIVED. TO PROVIDE SEDATION VACTATION TO SEE IF PT IS ABLE TO TOLERATE BEING EXBUATED TODAY. PT URINE OUTPUT PICKED UP THIS LAST HOUR.
--- NOTE | 2017-06-16 09:30 | NUR ---
PTOPOFOL DRIPP OFF AT THIS TIME. 1030: LEVOPHED DRIP OFF AT THIS TIME 1050: PT EXUBATED AT THIS TIME, DID WELL WITH THIS AND IS ON NC AT 4 LITERS AT THIS TIME. PT REPOSITIONED, FLOATED ON TWO PILLOWS AT THIS TIME. 11:00 ORAL CARE COMPLETED AT THIS TIME. CHAP STICK APPLIED TO LIPS. 11:20 PT ASKING QUESTION REGARDING HOW THIS WHO PROCESS HAPPENED AND THE TIME LINE. EXPLAINED TO PT AND THEN SHE WENT BACK TO SLEEP. REMAINS AT THE BEDSIDE AT THIS TIME.
--- NOTE | 2017-06-16 10:02 | NUR ---
PT SEDATION IS OFF AT THIS TIME, RT PRESENT PT IS UNABLE TO LIFT HEAD OFF BED AT THIS TIME. WHEN PT IS ON CPAP. SHE IS HAVING APENA PEROIDS. RT CHANGED HER BACK TO CMV FOR A FEW MINUTES. NOW ON SIMV AND PULLING VOLUMNS OF UP TO 300'S.
--- NOTE | 2017-06-16 11:10 | NUR ---
RESTRAINTS REMOVED AT THIS TIME, PT WAS EXBUATED AT 1050 AND PT IS FOLLOWING DIRECTIONS AT THIS TIME.
--- NOTE | 2017-06-16 12:30 | NUR ---
PT REPOSITIONED TO HER RIGHT SIDE AT THIS TIME.
--- NOTE | 2017-06-16 13:07 | NUR ---
URINE OUTPUT HAS INCREASED SOME AT THIS TIME, WITH 1/2 OF THE 500MLS LR BOLUS INFUSED.
--- NOTE | 2017-06-16 13:23 | NUR ---
SEE PT CHART FOR Q 15MINUTE VS.
--- NOTE | 2017-06-16 13:25 | NUR ---
1040 Pt passed weaning parameters she was unable to pass the niff do to a poor understanding of what was being asked of her . She was explained about the tube being removed she was awake calm and oriented . pt was placed in upright position oral care given and suctioned the mouth and around the tube, She was extubated and placed on 40% mask. Her spo2 100%, she coughed up alot of thick secretions from the airway without diffuculty and was placed on 2lpm NC spo2 was still 100% . Doctor Carol rounded and patient seemed comfortable
--- NOTE | 2017-06-16 13:59 | NUR ---
PT REPOSITIONED AT THIS TIME, I & O'S COMPLETED ALSO AT THIS TIME.
--- NOTE | 2017-06-16 15:32 | NUR ---
PT URINE OUT DROPED OFF SO 500MLS BOLUS LR GIVEN AT THIS TIME PER DR GOMEZ ORDERS.
--- NOTE | 2017-06-16 16:33 | NUR ---
PT COUGHING AND ABLE TO GET UP THE SPUTUM THAT CONTIOUES TO BE THICK AND DONALD TO GREEN IN COLOR. ICE CHIPS STARTED ALSO AT THIS TIME, HAD ABOUT FOUR CHIPS AND THAT WAS ENOUGH AT THIS TIME. PT HOB REPOSITIONED AT THIS TIME.
--- NOTE | 2017-06-16 17:03 | NUR ---
PT REPOSITIONED AND FLOAT ON PILLOWS AT THIS TIME. C/O SOB AND PAIN. PT MEDICATED WITH 1MG IVP MORPHINE AT THIS TIME.
--- NOTE | 2017-06-16 17:50 | NUR ---
PT TURNED TO RIGHT SIDE AT THIS TIME. TOLERATED WELL. URINE OUTPUT INPROVING SOME.
--- NOTE | 2017-06-16 20:30 | NUR ---
AWAKENS EASILY, ASKING WHERE SHE IS AT. HAS NOT MEMORY OF EVENTS OF BEING IN HOSPITAL. EXPLAINED HAD HAD SURGERY AND WOULDNT REMEMBER DAYS ON VENT. ASKED IF FAMILY WAS . INFORMED THEY WERE ALIVE AND HAD BEEN IN TO SEE HER. AT FIRST DENIED PAIN THEN STATED SHE HAD PAIN. DOES STATE SHE IS SOB. RESP RATE IS 14-16 BUT IS DEEP AND OPENS MOUTH WIDER WHEN BREATHING. GIVEN 2MG MORPHINE IV AND REPOSITIONED. BREATH TONES CLEAR.DR CARLSON HERE.
--- NOTE | 2017-06-16 20:50 | NUR ---
ABG'S DRAWN PER ART LINE.
--- NOTE | 2017-06-16 21:15 | NUR ---
BOLUS 500ML STARTED FOR POOR URINE OUTPUT AND LOW BP. DR CARLSON CONT TO BE IN DEPT.
--- NOTE | 2017-06-16 22:00 | NUR ---
DR GOMEZ CONTACTED BY DR CARLSON AT 2124. PT GIVEN TORRADOL 15MG AT 2126. WAS GIVEN NARCAN 0.4MG SLOWLY AT 2139. PT DID BECOME MORE AWAKE AND ABLE TO FOLLOW DIRECTIONS BETTER. DID GIVEN NEB TX. ALSO HAD PT USE IS BUT IS UNABLE TO USE IT WELL, POOR TECHNIQUE AND EFFORT. DID COUGH UP LARGE AMTS OF WHITE SPUTUM AND SALIVA, MOUTH SUCTIONED. DID GIVE PT SIP H2O. ABG'S REPEATED PER ART LINE.
--- NOTE | 2017-06-16 22:58 | NUR ---
PT AWAKE SITTING UP IN BED WITH [address] STATES BREATHING FEELS CONSTRICTED, LIKE WHEN SHE HAD ASTHMA A YOUNGER PERSON, BUT WITHOUT THE WHEEZE. BREATH TONES CLEAR ANT, SOME CRACKLES R BASE POST, DIM L POST.
--- NOTE | 2017-06-16 23:47 | NUR ---
CIRO CARLSON AND PATRICIA NOTIFIED OF PT BP AND LOW URINE OUTPUT. LEVOPHED GTT STARTED AT 5MCG/MIN. PT IS ALERT AND ABLE TO USE IS UP TO 500ML. STATES BREATHING IS BETTER.
--- NOTE | 2017-06-17 00:40 | NUR ---
LEVOPHED WAS INCREASED TO 15MG/HR AT 0005 FOR CONT LOW BP. PT ALERT,FEELING NEED TO VOID. EXPLAINED HAD CATHETER. URINE OUTPUT CONT TO BE LOW. HR HAS BEEN 60'S WITH DEC TO 49 OCC. PT BECAME BRADYCARDIC, HR 30, GIVEN 1MG ATROPINE IV AT 0010. PT HAD BEEN RESTLESS NOW STARING BLANKLY BUT IS BREATHING BLUE TEAM CALLED. HR UP TO 70'S. DR WALTER HERE. HR 70'SL LEVOPHED INC TO 17MG MAP 62. PT CONT TO BE SOMEWHAT RESTLESS. IS SOMEWHAT CONFUSED.
--- NOTE | 2017-06-17 01:30 | NUR ---
AT 0100 HR NOTED TO BE 60'S. PT SL RESTLESS. HR THEN CONT TO DEC TO 30'S. AT 0110 GIVEN 1MG ATROPINE IV, CODE BLUE CALLED. HR INC TO 70'S PT WAS OBTUNDED DURING THIS TIME. RESP SUPPORTED BVM BRIEFLY. DR CARLSON HERE. DR GOMEZ NOTIFIED. PT IS NOW BECOMING VERY AGITATED, THRASHING IN BED AND PULLING AT LINES. RESISTED BLADDER SCAN. NO URINE IN BLADDER. ELMORE IRRIGATED, RETURN ON SALINE. GIVEN 5MG HALDOL IV
--- NOTE | 2017-06-17 02:00 | NUR ---
DR GOMZE HERE AT 0140. BLOOD STARTED NOW INFUSING WITHOUT PROBLEM. PT CALMER SINCE HALDOL WAS GIVEN.
--- NOTE | 2017-06-17 03:10 | NUR ---
PT INTUBATED AT 0300 WITHOUT DIFFICULTY. CHEST XRAY CONFIRMED TUBE PLACEMENT. ETT SECURED. PT RESTFUL LEVOPHED TITRATED DOWN BP ELEVATED AT THIS TIME.
--- NOTE | 2017-06-17 03:30 | NUR ---
ABG'S DRAWN PER ART LINE. PT ON VERSED GTT FOR SEDATIONS. GTT INC TO 3MG/HR NOT BREATHING IN SYNC WITH VENT. LEVOPHED INC TO 15MG/HR
--- NOTE | 2017-06-17 05:10 | NUR ---
CONT ON LEVOPHED AT 15MG/HR, URINE OUTPUT REMAINS POOR. DR GOMEZ GIVEN UPDATE.
--- NOTE | 2017-06-17 07:01 | NUR ---
RESTING WELL. LEVOPHED AT 12MG/HR.
--- NOTE | 2017-06-17 07:28 | NUR ---
REPORT TO DAY SHIFT.
--- NOTE | 2017-06-17 08:18 | NUR ---
PT FAMILY PRESENT AT THIS TIME, EXPLAINED ALL WHAT HAPPENED TO PT LAST NIGHT. FAMILY IS AT BEDSIDE AND UNDERSTAND. REMAINED AT THE BEDSIDE.
--- NOTE | 2017-06-17 08:59 | NUR ---
PT FAMILY REMAINS AT THE BEDSIDE AT THIS TIME.
--- NOTE | 2017-06-17 09:21 | NUR ---
DECREASED THE FOLLOWING DRIPS: VERSED 2.GM/HR LEVOPHED 10MCG/MIN LR 5MG/HR DID NOT GIVE THE DIG THIS AM DUE TO HEART RATE HAS DECREASED TO THE 50'S
--- NOTE | 2017-06-17 10:06 | NUR ---
PT APPEARS TO BE RESTING COMFORABLE ON THE VENT WITH CURRENT SETTINGS. NO CHANGES MADE AT THIS TIME. URINE OUT PUT CONTIOUES TO MEET THE MIKE PER MD. LEVOPHED DRIP INCREASED AT THIS TIME.
--- NOTE | 2017-06-17 10:59 | NUR ---
DR CARLSON INTO SEE PT THIS AM. NEW ORDERS RECEIVED AT THIS TIME, EKG COMPLETED.
--- NOTE | 2017-06-17 12:05 | NUR ---
SENT LAB SAMPLE FOR THE FOLLOWING TEST, ABG,CBC, AND LACTIC ACID AT THIS TIME. SAMPLE OBTAINED VIA ART LINE WASTED 5MG AND SENT THE SAMPLE.
--- NOTE | 2017-06-17 12:54 | NUR ---
LEVEOPHED DRIP INCREASED TO 14 AT THIS TIME.
--- NOTE | 2017-06-17 15:30 | NUR ---
PT CONTIOUES TO HAVE CONTRACTED URINE AND HAS BEEN MEETING THE MIKE FOR OUTPUT. CONTIOUES TO TOLERATE THE CURRENT VENT SETTING AND HAS BEEN TURNED AND RESTRAINTS HAVE BEEN UNTIED AND RETIED FOR THE PROTECTIONS OF LINES AND ET TUBE. FAMILY HAS BEEN AT THE BEDSIDE ALL DAY. PT HEART RATE HAS INCREASED THE DAYS HAS PROGRESSED. CURRENTLY RUNNING IN THE 60'S TO 70'S.
--- NOTE | 2017-06-17 17:00 | NUR ---
TALKED WITH VIA PHONE REGARDING PT CONDTIONS AT THIS TIME. HE WANTS TO HAVE LESS SEDATIONA DNWANTS TO DECREASED THE LEVOPHED DRIP. SO DECREASED VERSED DRIP TO 1.5 AND THE LEVOPHED DRIP TO 12. PT WAS ALSO REPOSITIONED AND CATHETER CARE COMPLETED. THE PACER PADS REMOVED DUE TO INCREASED HEART RATE.
--- NOTE | 2017-06-17 17:01 | NUR ---
DECREASED LEVEOPHED DRIP TO 12 AT THIS TIME.
--- NOTE | 2017-06-17 18:04 | NUR ---
PT IS HAVING INCREASED ALERTNESS AT THIS TIME WITH THE VERSED DRIP AT 1.5. SHE NODED YES WITH ORAL CARE FROM RT. SHE APPEARS TO BE RESTING COMFORTABLE AT THIS TIME. FAMILY REMAIN AT THE BEDSIDE.
--- NOTE | 2017-06-17 18:30 | NUR ---
SEE VITAL SIGNS SCANED INTO CHART.
--- NOTE | 2017-06-17 19:06 | EKG ---
[facility] [address] [facility] [place] [address] Signed Atrial fibrillation with slow ventricular response Low voltage QRS Septal infarct (cited on or before 16-JAN-2017) Abnormal ECG When compared with ECG of 13-JUN-2017 17:30, T wave inversion now evident in Anterior leads Confirmed by ИРИНА RACHEL MD ([id number]) on 06/17/2017 7:05:51 PM Electronically Signed By: ИРИНА RACHEL MD 06/17/17 1906 PATIENT NAME: SAEED OBRIEN Electrocardiogram DATE OF : 32 PHYSICIAN: ИРИНА RACHEL MD REPORT #: [id number] REPORT IS CONFIDENTIAL AND NOT TO BE RELEASED WITHOUT AUTHORIZATION
--- NOTE | 2017-06-17 19:30 | NUR ---
REPORT RECEIVED FROM PEDRO VALLEJO. PT IS IN BED ON VENT WITH FIO2 50%, TV 450, PEEP 5 AND PS 15. TUBE IS 22CM AT THE TEETH. PT IS MOVING ARMS OCCASIONALLY, WRIST RESTRAINTS IN PLACE. LEVOPHED DRIP IS INFUSING AT 10 MCG/MIN. VERSED DRIP IS INFUSING AT 1.5MG/HR. ART LINE AND CVP ZEROED. WILL CONTINUE TO MONITOR.
--- NOTE | 2017-06-17 19:45 | NUR ---
ASSESSMENT DONE. LUNGS CLEAR, ABD DISTENDED, SOMEWHAT FIRM AND VERY TENDER, PT GRIMACES WITH LIGHT TOUCH TO ABDOMEN, FEW BOWEL SOUNDS HEARD. PT IS GETTING MORE RESTLESS AND PULLING AT WRIST RESTRAINTS. WILL TURN VERSED DRIP UP TO 2.5MG/HR.
--- NOTE | 2017-06-17 20:20 | NUR ---
PT IS GRIMACING, NODS YES THAT SHE IS HAVING PAIN, 4MG IV MORPHINE GIVEN.
--- NOTE | 2017-06-17 21:33 | NUR ---
PT REPOSITIONED, MOVES SOME WITH STIMULATION THEN BACK TO SLEEP.
--- NOTE | 2017-06-17 22:21 | NUR ---
TRIED TO TITRATE LEVOPHED DOWN, SBPS DOWN TO 90S WITH MAPS 55, TURNED BACK UP TO 10MCG/MIN. PT REMAINS RESTFUL, NOT PULLING AT RESTRAINTS BUT WILL ROUSE TO STIMULATION. URINE OUTPUT REMAINS QUANTITY SUFFICIENT.
--- NOTE | 2017-06-17 22:21 | NUR ---
NEW BAG OF LEVOPHED HUNG.
--- NOTE | 2017-06-17 23:40 | NUR ---
PT REPOSITIONED AND ORAL CARE DONE, PT AWAKENS AND GRIMACES WITH MOVEMENT. 4MG IV MORPHINE GIVEN.
--- NOTE | 2017-06-18 02:24 | NUR ---
PT RESTFUL, REPOSITIONED, RT IN TO CHECK
--- NOTE | 2017-06-18 04:16 | NUR ---
PT REPOSITIONED, ASSESSMENT DONE, ABD STILL DISTENDED AND VERY TENDER, PT WAKES WITH MOVING THEN BACK TO SLEEP.
--- NOTE | 2017-06-18 05:51 | NUR ---
VERSED DRIP TURNED DOWN TO 1.5MG/HR AND LEVOPHED DRIP TURNED DOWN TO 5MCG/MIN.
--- NOTE | 2017-06-18 06:38 | NUR ---
PT IS TOLERATING LEVOPHED DRIP AT 5MCG/MIN. WILL CONTINUE TITRATING DOWN.
--- NOTE | 2017-06-18 07:03 | NUR ---
DR RACHEL IN TO ASSESS PT. VERSED DRIP TURNED OFF.
--- NOTE | 2017-06-18 07:26 | NUR ---
BEDSIDE REPORT RECEIVED FROM YONI NIELSEN. PATIENT REMAINS ON VENT ON 50%, SIMV 18, PEEP 5, PS 15, VT 450. PATIENT'S VERSED ON STANDBY AT THIS TIME. PATIENT HAS TPN GOING AT 84 ML/HR, AND LEVOPHED AT 5 MCG/MIN. PATEINT HAS ART LINE IN LEFT WRIST WITH A GOOD WAVEFORM AT THIS TIME. LEVOPHED TURNED DOWN TOT 2.5 MCG/MIN WHILE IN ROOM, BP CURRENTLY 115/59. LAST NIBP 115/55 (69). SCDs ON. STRONG PULSES PALPABLE X4 EXT. CONTINUE TO MONITOR.
--- NOTE | 2017-06-18 08:05 | NUR ---
PATIENT'S JUANIS IN ROOM AT THIS TIME AND RT. PATIENT SOMEWHAT MORE RESPONSIVE, BUT NOT WIDE AWAKE YET. WRIST RESTRAINTS REMAIN INTACT BILATERALLY. CONTINUE TO MONITOR.
--- NOTE | 2017-06-18 08:55 | OR ---
[facility] [address] [place], [place] [address] Signed DATE OF OPERATION: 06/15/2017 SURGEON: Shukri Gomez MD PREOPERATIVE DIAGNOSIS: Critical illness, need for Norepinephrine drip. POSTOPERATIVE DIAGNOSIS: Critical illness, need for Norepinephrine drip. PROCEDURE: Left subclavian triple-lumen catheter. ANESTHESIA: 1% Lidocaine. 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 She has variably required norepinephrine drip since return to the intensive care unit. She is still ventilated. Attempts at weaning of the norepinephrine have been unsuccessful and central venous catheter is needed to allow for continued use of the medication. The risks of bleeding, infection, pneumothorax, and so forth were reviewed with her and other family members. They wished to proceed. FINDINGS: Dark nonpulsatile blood was noted from the left subclavian vein. Arrow blue tip triple-lumen catheter was placed without problem. Good function was noted. A postprocedure chest x-ray showed good position of the tip of the catheter and no sign of complication. DESCRIPTION OF PROCEDURE: While in the supine position on the ventilator, the left infraclavicular space was prepared with chlorhexidine solution and draped sterilely per hospital protocol. 1% lidocaine was injected in the left subclavian area. Gown, mask, gloves, etc., all sterile were used throughout the course. Using a Seldinger technique, the left subclavian vein was easily accessed showing dark nonpulsatile blood. A flexible J-wire was passed down the needle and the needle was removed. The site was incised with 11 blade and a previously inspected and irrigated Arrow blue tip triple-lumen catheter was passed over the wire and the wire was removed from the distal port. Aspiration on the distal port Electronically Signed By: SHUKRI GOMEZ MD 06/18/17 0855 PATIENT NAME: SAEED OBRIEN OPERATIVE REPORT DATE OF : 32 PHYSICIAN: SHUKRI GOMEZ MD REPORT #: [id number] REPORT IS CONFIDENTIAL AND NOT TO BE RELEASED WITHOUT AUTHORIZATION [facility] [address] [place] [address] Signed showed dark nonpulsatile blood. A Clave connector was applied and all ports were irrigated with saline. The catheter was withdrawn a bit given her body habitus. Enclosed collar was used and secured with a nylon suture. It was doubly secured on the additional phalange. A SorbaView dressing was applied. A postprocedure portable chest x-ray was obtained, showing the tip of the catheter in the superior vena cava. No sign of pneumothorax or other problem. Blood loss was minimal. MD STANLEY Irwin/MODL /[id number] cc: MD Alejandro Bender MD Electronically Signed By: SHUKRI GOMEZ MD 06/18/17 0855 PATIENT NAME: SAEED OBRIEN OPERATIVE REPORT DATE OF : 32 PHYSICIAN: SHUKRI GOMEZ MD REPORT #: [id number] REPORT IS CONFIDENTIAL AND NOT TO BE RELEASED WITHOUT AUTHORIZATION
--- NOTE | 2017-06-18 09:02 | NUR ---
PATIENT GIVEN FULL BED BATH. PT TOLERATED WELL. PT'S LEAVES ROOM FOR THIS BUT RETURNS NOW AT THIS TIME. DR. GOMEZ IN TO SEE PATIENT. CBC ORDERED. PT NOTED TO HAVE AN ORAL TEMP OF 100.4 AND A TEMPORAL TEMP OF 100.7. SP02 CURRENTLY 100% ON 50% FI02. SIMV NOW SET AT 20 PER RT. CONTINUE TO MONITOR CLOSELY.
--- NOTE | 2017-06-18 09:52 | NUR ---
PATIENT REMAINS OFF SEDATION AT THIS TIME. RT CALLED TO START WEANING TRIAL. FAMILY UPDATED ON PLAN OF CARE. CONTINUE TO MONITOR.
--- NOTE | 2017-06-18 11:07 | NUR ---
PATIENT ON WEANING TRIAL AT THIS TIME. PT'S DAUGHTER AND IN ROOM. RR CURRENTLY 24 ON CPAP WEANING TRIAL. PT FOLLOWS COMMANDS AND TAKES DEEP BREATHS ON COMMAND. CURRENT BP 110/52 (64). HEART RATE CURRENTLY IN THE 70-80s. CONTINUE TO MONITOR.
--- NOTE | 2017-06-18 11:19 | NUR ---
DR. RACHEL UPDATED ON PT'S STATUS AND WEANING TRIAL AT THIS TIME. PT UPDATED ON TEMP OF 100.8 ORAL. PT REMAINS ON WEAN TRIAL. UA TO BE SENT. ABG TO BE DRAWN AND SENT AROUND 1130, AFTER A 1/2 HR OF WEANING TRIAL.
--- NOTE | 2017-06-18 11:47 | NUR ---
URINE SENT AT THIS TIME AND ABG DRAWN FROM ART LINE. PT BACK ON VENT SETTINGS AT THIS TIME UNTIL FURTHER DISCUSSION WITH MDs REGARDING PLAN OF CARE. PT RESTING EASIER NOW THAT SHE IS BACK ON VENT SETTINGS. CONTINUE TO MONITOR CLOSELY.
--- NOTE | 2017-06-18 12:20 | NUR ---
LEVOPHED TURNED BACK ON AT THIS TIME. PATIENT'S ART LINE READING 70/30-40s. NIBP 92/43 (53). LEVOPHED STARTED 2 MCG/MIN. TPN CONTINUES AT 84 ML/HR.
--- NOTE | 2017-06-18 12:43 | NUR ---
PATIENT SWITCHED TO CMV PER RT AFTER DISCUSSING ABG RESULTS WITH DR. RACHEL. CURRENT VENT SETTINS ARE CMV 20, FIO2 50%, VT 450, PEEP 5. PT RESTING CURRENTLY AND TOLERATING VENT SETTINGS WITHTOUT ANY SEDATION. CONTINUE TO MONITOR FOR SIGNS AND SYMPTOMS OF PAIN AND DISCOMFORT. RASS GOAL IS -1, AND CURRENTLY SHE IS AT A -1 RASS GOAL.
--- NOTE | 2017-06-18 13:19 | NUR ---
PT STILL ON VENT-TAKING IT'S TOLL ON FAMILY. TRIED TO WEAN OFF OVER WEEKEND, TRIED TODAY, R.T. WILL TRY AGAIN TOMORROW. FAMILY TEARFUL, DAUGHTERS DON'T WANT THEIR DAD TO SEE THEM EMOTIONAL. WILL CONTINUE TO FOLLOW
--- NOTE | 2017-06-18 13:22 | NUR ---
PATIENT SEEMS MORE RELAXED AFTER [address] RACHEL UDPATED ON PT'S CONDITION AND CURRENT STATUS. MANUAL BP IS 94/48, NIBP IS 106/49 (62), AND ART LINE IS 80/37. PT REMAINS OFF ANY TYPE OF SEDATION MEDICATION AT THIS TIME. CONTINUE TO MONITOR.
--- NOTE | 2017-06-18 14:47 | NUR ---
PATIENT REMAINS ON CMV OF 20 AT THIS TIME. FAMILY REMAINS IN ROOM AND ATTENTIVE TO PATIENT. HEART RATE CURRENTLY 70-80s, AND LAST BP 106/46 (60). SP02 IS CURRENTLY 99% ON 50% FI02. ETC02 IS 33 CURRENTLY. PATIENT IS TOLERATING VENTILATOR AT THIS TIME. CONTINUE TO MONITOR. PLAN IS TO ALLOW PATIENT TO CONTINUE TO REST AND RE-DRAW AN ABG AROUND 1600.
--- NOTE | 2017-06-18 15:30 | NUR ---
CARE CONFERENCE ATTENDEES: PT DENISSE, AND DAUGHTER FAN STAFF: CAMI VALLEJO, AND MYSELF CASE MANAGEMENT CAMI REVIEWED PT PRESENT CONDITION AND WHAT WE ARE HOPING TO ACHIEVE BY ALLOWING HER TO CONTINUE TO REST WHILE REMAINING ON THE VENTILATOR. THEN I DISCUSSED WHAT TO EXPECT AFTER SHE IS OFF THE VENTILATOR AND ON THE MED SURG FLOOR AND PAST THAT TO A SNF--WE TALKED ABOUT THE DIFFERENT ONES AVAILABLE AND THE LIKELIHOOD THAT THIS PT WILL NEED TO GO TO ONE FOR GENERALIZED STRENGTHENING AFTER THIS LONG COURSE IN THE HOSPITAL. WE TALKED ABOUT [facility] AND ALSO [facility]TA[facility], THEY ARE GOING TO DISCUSS THIS AND WE WILL DISCUSS IT AGAIN SHE IS NOT GOING ANYWHERE THIS SOON. FAN AND PT DENIED FURTHER QUESTIONS AT THIS TIME.
--- NOTE | 2017-06-18 17:55 | NUR ---
PATIENT WAS GIVEN 20 MG IV LASIX AND 2 MG IV MORPHINE AROUND 1700. PATIENT'S FAMILY REMAINS IN ROOM AND ATTENTIVE TO PATIENT. SCDs ON. TPN AND LIPIDS INFUSING. PT REMAINS ON VENT SETTINGS OF CMV 18, VT 450, FIO2 40%, PEEP 5. WEANING TRIAL TO BEGIN AGAIN TOMORROW AM.
--- NOTE | 2017-06-18 21:20 | NUR ---
PROPOFOL DRIP STARTED AT 5MCG/KG/MIN AND TITRATED UP TO 15 MCG/KG/MIN FOR SEDATION TO HELP PATIENT SLEEP.
--- NOTE | 2017-06-18 23:30 | NUR ---
PATIENT'S HR STARTED TO DROP TO 39, PROPOFOL DRIP TURNED OFF, AND LEVOPHED WELL. PRESSURES HAVE BEEN MAINTAINING AND URINE OUTPUT HAS BEEN GOOD. CHANGING OUT ART-LINE TUBING AT THIS TIME.
--- NOTE | 2017-06-18 23:40 | NUR ---
PATIET RESTLESS AND SQUEEZES MY HAND WHEN i ASK HER TO IF HER ABD HURTS. SHE SQUEEZES YES. 2MG IV MS GIVEN.
--- NOTE | 2017-06-19 00:15 | NUR ---
PATIENT STILL IN VERY RESTLESS AND LOOKS UNCOMFORTABLE BY FACIAL GRIMACE AND MOVEMENT. 4 MG IV MS GIVEN FOR COMFORT.
--- NOTE | 2017-06-19 00:30 | NUR ---
CALLED REGARDING PATIENT BRADICARDIA EPISODES TO SEE IF HE HAD FURTHER SUGGESTIONS/INSTRUCTIONS TO KEEP PATIENT CALM AND RESTFUL NOW THAT PROPOFOL IS OBVIOUSLY NOT REACTING WELL WITH THE PATIENT. ORDERS GIVEN FOR 5MG IV HALDOL Q2 HRS PRN AND/OR 0.5MG TO 1MG IV ATIVAN Q2PRN FOR RESTLESSNESS ANXIETY. ORDERS PUT IN.
--- NOTE | 2017-06-19 01:12 | NUR ---
AFTER MY PHONE DISCUSSION WITH DR. Zuluaga 1 MG IV ATIVAN GIVEN FOR RESTLESSNESS.
--- NOTE | 2017-06-19 02:50 | NUR ---
URINE OUTOUT HAD DROPPED OFF, PATIENT RESTARTED ON 2MCG/MIN TO INCREASE MAP AND HOPEFULLY INCREASE URINARY OUTPUT.
--- NOTE | 2017-06-19 04:04 | NUR ---
PATIENT IS RESTING QUIETLY. ON CMV ON VENT, RATE 18, PEEP=5, FIO2 40%, ES=884. CURRENTLY ON 2mcg/MIN lEVOPHED FOR DECREASED B/P.
--- NOTE | 2017-06-19 06:40 | NUR ---
LEVOPHED SHUT OFF.
--- NOTE | 2017-06-19 06:57 | NUR ---
PATIENT WAS HAVING 4/10 PAIN CRITERIA. 2MG IV MS GIVEN.
--- NOTE | 2017-06-19 08:01 | NUR ---
PT OPENS EYES TO VOICE, WHEN ASKED PT IS SHE IS IN PAIN SHE SHAKES HER HEARD "NO". VITAL SIGNS COMPLETED AND ASSESSMENT COMPLETED. MIDLINE ABD MIKI INTACT, HYPOACTIVE BOWEL SOUNDS. ELMORE CATH DRAINING CLEAR YELLOW URINE. VENT SETTINGS 40% FI02, 450 TB, 5 PEEP, CMV. R.T. IN TO CHECK PT. FAMILY ALSO HERE.
--- NOTE | 2017-06-19 08:13 | NUR ---
Felipe.T. STARTED WEANING PT FROM VENT.
--- NOTE | 2017-06-19 09:19 | NUR ---
DR. RACHEL IN TO ASSESS PT AND R.T. HERE - NIF -21. PT AWAKE AND ALERT. ABG DRAWN FROM ART LINE WITH 3 MLS WASTED.
--- NOTE | 2017-06-19 10:24 | NUR ---
RClovis HERE AND ABG RESULTS CALLED TO DR. GOMEZ. DR. RACHEL HERE AND R.T. PREPARING TO EXTUBATE PT.
--- NOTE | 2017-06-19 10:32 | NUR ---
PT EXTUBATED AT 1030 AND INEZ WELL. HOB ELEVATED TO 45 DEGREES PT ON 3L PER NC WITH SATS 97%. ASSESSMENT COMPLETED.
--- NOTE | 2017-06-19 11:28 | NUR ---
PT ANXIOUS AND WANTS TO SIT ON THE SIDE OF THE BED. PT ASSISTED UP AND REPOSITIONED AFTER LYING BACK IN BED, SATS 98%. R.T. NOTIFIED AND VAPOTYHERM ON AT 20L AND FI02 AT 30%.
--- NOTE | 2017-06-19 12:15 | NUR ---
DR. GOMEZ IN TO ASSESS PT AND DR. RACHEL ALSO IN TO CHECK PT.
--- NOTE | 2017-06-19 12:19 | NUR ---
G DRAWN FROM ART LINE AND SENT TO LAB. FR. CAMPUZANO IN TO SEE PT.
--- NOTE | 2017-06-19 12:52 | NUR ---
PT IN THE PROCESS OF BEING EXTEBATED. FAMILY PRESENT AND VERY HOPEFUL. TIME WILL TELL. I WILL CONTINUE TO PRAY AND FOLLOW
--- NOTE | 2017-06-19 12:54 | NUR ---
MED REC COMPLETE.
--- NOTE | 2017-06-19 13:14 | NUR ---
CXR TAKEN AND ASSESSMENT COMPLETED. VAPOTHERM ON BUT AFTER ABG RESULTS R.T. PLACED PT ON BIPAP 10/ RATE 20, SATS 99%. PT MEDICATED WITH TOADOL 15MG IV, ALSO LASIX 20MG GIVEN IV PER DR. RACHEL.
--- NOTE | 2017-06-19 14:59 | NUR ---
ABG RESULTS CALLED TO DR. GOMEZ. PT REMAINS ON BIPAP AT 15/5, RATE 22, 35% FI02. PH 7.33, PCO2 52.0. HCO3 27.1, SATS 97%.
--- NOTE | 2017-06-19 16:30 | NUR ---
PT RESTING ON BIPAP, FAMILY IN ROOM. ASSESSMENT COMPLETED.
--- NOTE | 2017-06-19 17:41 | NUR ---
PT SLEEPING ON BIPAP WITH RESP 14-16. FAMILY REMAINS IN ROOM.
--- NOTE | 2017-06-19 18:57 | NUR ---
DR. GOMEZ AND DR. RACHEL IN TO ASSESS PT AND TALK WITH FAMILY MEMBERS.
--- NOTE | 2017-06-19 19:30 | NUR ---
FINISHING REPORT. PATIENT IS ON BIPAP VISITING WITH HER FAMILY.
--- NOTE | 2017-06-19 20:05 | NUR ---
FINISHING ASSESSMENT. LUNGS CLEAR IN APICES BILAT AND CLEAR,BUT DEMINISHED IN THE BASES BILAT. A+O, BOWEL TONES POSITIVE X4. HERRON. FAMILY ATTENTIVE AT BEDSIDE. BLOOD GAS DRAWN FROM ARTLINE AND SENT TO LAB.
--- NOTE | 2017-06-19 21:00 | NUR ---
CALLED WITH BLOOD GAS RESULTS. ORDERS TO DRAW ANOTHER BLOOD GAS 2 HOURS AFTER THE LAST ONE DRAWN GIVEN AND ORDERED. URINE OUTPUT HAS REMAINED ABOVE 40MLS/HR.
--- NOTE | 2017-06-19 22:15 | NUR ---
PATIENT STILL AWAKE BUT TRYING TO REST ON BIPAP. ABG DRAW AND SENT TO LAB.
--- NOTE | 2017-06-19 22:43 | NUR ---
PATIENT'S BLOOD GASES ARE SLIGHTLY IMPROVED. PATIENT STILL RESTLESS AND 15MG IV TORADOL GIVEN FOR DISCOMFORT.
--- NOTE | 2017-06-19 23:20 | NUR ---
PATIENT IS WANTING US TO GET HER A PHONE,"RIGHT NOW." PATIENT IS LIGHTLY DEMANDING TO CALL AT HOME RIGHT NOW. WE INFORMED HER WE HAD ALREADY TALKED TO AND HE WANTED HER TO SLEEP. PATIENT IS RESTLESS. WAVES HER ARMS OUT TOWARDS STAFF. WANTING TO KEEP HER SAT PROBE OFF. TRYING TO REASSURE PATIENT TO TRY AND GET SOME SLEEP.
--- NOTE | 2017-06-20 00:45 | NUR ---
PATIENT STILL AWAKE. PATIENT BROKE OF HER STATLOCK ATTACHED TO HER ELMORE, SO A NEW ONE WAS APPLIED. PATIENT IS STILL DEMANDING A PHONE FROM STAFF EVERYTIME STAFF COMES IN THE ROOM. TRIED TO EXPALIN TO THE PATIENT NOBODY WOULD BE ABLE TO UNDERSTAND HER WITH THE BIPAP ON, THAT IT WAS 0045 IN THE MORNING, AND PATIENT DID NOT WANT US TALKING TO ANYONE ON THE PHONE FOR HER, SHE ONLY WANTS TO DO IT HERSELF.
--- NOTE | 2017-06-20 01:05 | NUR ---
PATIENT STILL REMAINS RESTLESS. PATIENT NOTED TO BE NOT SYNCRONIZING WITH BIPAP. RT CALLED AND ASSESSED PATIENT. RR ON BIPAP CHANGED FROM 22 TO 15, IN ATTEMPT TO SEE IF PATIENT WOULD FALL BACK IN SYNCRONY WITH BIPAP. PATIENT NOTED TO BE BREATHING DEEPER AND IN BETTER UNISON WITH BIPAP WHEN THIS CHANGE WAS MADE. ABG DRAWN FROM ART LINE AT 0120 AND RESULTS NOT MUCH DIFFERENT FROM EARLIER ABG. PATIENT RE-ORIENTED BEST POSSIBLE, BUT STILL SEEMS SOMEWHAT DISORIENTED. WILL CONTINUE TO MONITOR CLOSELY.
--- NOTE | 2017-06-20 02:12 | NUR ---
DR. RACHEL AND DR. GOMEZ CALLED TO UPDATE ON PATIENT. PATIENT NOTED TO HAVE BRADYCARDIA AT 0152 AND AT THIS TIME WAS PULLING AT HER MASK AND NOTED TO BE DRY HEAVING. PATIENT SUSTAINED THE BRADYCARDIA FOR APPROX 10 SECONDS. ORDER REC'D FOR IV ZOFRAN. HEART RATE NOW IN THE 60-70s, AFIB. PATIENT'S BP CURRENTLY 114/50 (72). CONTINUE TO MONITOR CLOSELY.
--- NOTE | 2017-06-20 02:56 | NUR ---
VENT CHANGES MADE AT 0245 ON BIPAP TO 18 IPAP OVER 5 EPAP. BLOOD GAS TO BE DRAWN AT 0315. 1 MG IV HALOPERIDOL GIVEN AT 0252. PATIENT SEEMS TO BE TOLERATING VENT CHANGES WELL. SHE HAS HAD NO MORE NAUSEA OR DRY HEAVES SINCE THE ZOFRAN WAS GIVEN. PATIENT CALM IN THE ROOM LONG STAFF IS PRESENT.
--- NOTE | 2017-06-20 03:25 | NUR ---
PATIENT STILL AWAKE. ABG DRAWN AT 0315. ANOTHER 1MG IV HALOPERIDOL GIVEN AT 0322. THIS NURSE AT BEDSIDE AND WILL CONTINUE TO MONITOR.
--- NOTE | 2017-06-20 03:53 | NUR ---
PATIENT STILL A BIT RESTLESS AND GIVEN 1 MORE MG OF HALOPERIDOL IV TO HELP HER REST. PATIENT MORE RELAXED ON NEW VENT SETTINGS.
--- NOTE | 2017-06-20 06:43 | NUR ---
PATIENT HAS BEEN DOING WELL ON HER NEW VENT SETTINGS, HAS NEEDED A TOTAL OF 4MG HALDOL TO KEEP PATIENT CALM ENOUGH TO KEEP HER FROM PULLING ON LINES AND CATH. ALL CLAVES HAVE BEEN CHANGED ON HER CENTRAL LINE AND HEP-LOCKED EXCEPT FOR THE ONE THAT IS RUNNING CONTINUOUS. URINE OUTPUT HAS REMAINED ABOVE 'S PARAMETERS. WILL CONTINUE TO MONITOR.
--- NOTE | 2017-06-20 08:02 | NUR ---
PT AWAKE AND ASSESSMENT COMPLETED. PT MEDICATED WITH TORADOL 15MG IV FOR C/O P/O SMALL BOWEL RESECTION. DR. RACHEL IN TO ASSESS PT.
--- NOTE | 2017-06-20 09:27 | NUR ---
ABG, CBC AND TROPONIN DRAWN FROM ART LINE AND SENT TO LAB. EKG COMPLETED AND US TECH HERE AND ECHO STARTED. FAMILY HERE TO BE WITH PT.
--- NOTE | 2017-06-20 10:36 | NUR ---
ABG DRAWN FROM ART LINE WITH 2 MLS WASTED.
--- NOTE | 2017-06-20 11:14 | NUR ---
BIPAP OFF AND VAPOTHERM ON AT 40L & FI02 30%. PT WITH HOB ELEVATED AND FAMILY MEMBER IN ROOM. SATS 96% HR 66 RESP 18.
--- NOTE | 2017-06-20 12:41 | NUR ---
SPONGE BATH GIVEN AND LOTION APPLIED, CATH CARE COMPLETED AND LINEN CHANGED. ORAL CARE COMPLETED.
--- NOTE | 2017-06-20 13:15 | NUR ---
PT EXTEBATED, ON BIPAP. FAMILY BY HER SIDE, VISITED WITH PT-SHE ACKNOWLEDGED BY PRESENCE AND REACHED OUT TO HOLD MY HAND. SHE HAD ME PRAY FOR HER, AND KNODDED APPROVAL. WILL CONTINUE TO FOLLOW
--- NOTE | 2017-06-20 13:38 | NUR ---
PHYSICAL THERAPIST HERE AND PT STOOD AT BEDSIDE WITH 2 PERSON ASSIST. PT RETURNED TO BED WITH HOB ELEVATED. PT REMAINED ON BIPAP WHILE STANDING. PT INEZ WELL.
--- NOTE | 2017-06-20 14:47 | EKG ---
[facility] [address] [place] [address] Signed Atrial fibrillation with slow ventricular response Low voltage QRS Cannot rule out Anteroseptal infarct (cited on or before 16-JAN-2017) Abnormal ECG When compared with ECG of 17-JUN-2017 10:47, No significant change was found Confirmed by ИРИНА RACHEL MD ([id number]) on 06/20/2017 2:47:44 PM Electronically Signed By: ИРИНА RACHEL MD 06/20/17 1447 PATIENT NAME: SAEED OBRIEN Electrocardiogram DATE OF : 32 PHYSICIAN: ИРИНА RACHEL MD REPORT #: [id number] REPORT IS CONFIDENTIAL AND NOT TO BE RELEASED WITHOUT AUTHORIZATION
--- NOTE | 2017-06-20 15:53 | NUR ---
PT RESTLESS, MEDICATED WITH TORADOL 15MG IV. FAMILY IN ROOM, PT CONTINUES TO BE RESTLESS.
--- NOTE | 2017-06-20 16:18 | NUR ---
ASSESSMENT COMPLETED, PT IN BED BUT UNABLE TO SLEEP. AND DAUGHTER AT BEDSIDE. PT STATES SHE WILL TRY TO CLOSE HER EYES.
--- NOTE | 2017-06-20 17:03 | NUR ---
TALKED WITH DR. RACHEL AND DR. GOMEZ ABOUT PT RESTLESSNESS. HALDOL 0.1 ML OF 5MG/ML VIAL GIVEN IV. FAMILY REMAINS WITH PT.
--- NOTE | 2017-06-20 17:37 | NUR ---
PT REMAINS AWAKE AND FAMILY ON EACH SIDE OF BED HELPING TO CALM PT. HALDOL 0.1 ML GIVEN IV.
--- NOTE | 2017-06-20 19:39 | NUR ---
REPORT RECEIVED FROM YONI SALAMANCA. PT RESTING AT THIS TIME IN BED WITH HER AND HER DAUGHTER AT BEDSIDE. PATIENT IS WEARING BIPAP AT THIS TIME. ELMORE REMAINS INTACT, DRAINING CONCENTRATED URINE. PT REMAINS IN AFIB, 80s. ART LINE PRESSURE IS 117/54 (74), NIBP 135/66 (78). PLAN OF CARE DISCUSSED FOR THIS NIGHT. CONTINUE TO MONITOR.
--- NOTE | 2017-06-20 20:29 | NUR ---
ASSESSEMENT COMPLETE. PATIENT TAKEN OFF BIPAP MASK TO ALLOW FOR ORAL CARE AND TO EVALUATE PATIENT'S ORIENTATION AND MENTATION. PT ABLE TO STATE HER NAME, HER , AND THE CURRENT YEAR, BUT IS UNABLE TO SAY WHERE SHE IS OR WHY SHE IS HERE IN THE HOSPITAL. PT REORIENTED TO CURRENT EVENTS. PATIENT THOUGHT SHE WAS AT "DR. CHOUDHARY'S OFFICE". PT REMINDED THAT SHE RECENTLY HAD AN ABDOMINAL SURGERY AND SHE SEEMED FAMILIAR WITH THIS INFORMATION. PT ASKED IF SHE WAS SHORT OF BREATH TO WHICH SHE REPLIED YES. PT ALSO NOTED TO NOT SPEAK IN FULL SENTENCES AND HER VOICE INTERUPTED BY STRUGGLED BREATHING. PT NOTED TO BE RETRACTING WHEN SHE BREATHS, EVIDENCED BY SUPRACLAVICULAR RETRACTIONS AND ACCESSORY MUSCLE USE. PATIENT DENIES PAIN AT THIS TIME HOWEVER. PT HAS ACTIVE BOWEL SOUNDS. MIDLINE INCISION IS CLEAR AND DRY, WITH MIKI INTACT AND INCISION IS WELL APPROXIMATED. PATIENT MOVING ALL FOUR EXT WELL. SCDs ARE ON. STRONG PULSES ARE EASILY PALPATED X4 EXTREMITIES. PT ASKED IF SHE WAS TIRED AND SHE SAID YES, AND PATIENT ENCOURAGED TO TRY AND SLEEP. PT REMAINS IN AFIB, WITH HR JUMPING AROUND FROM THE 40-80s. SP02 CURRENTLY 100% ON 35% BIPAP WITH SETTINGS OF 10/5 AND RATE OF 15. PT CURRENTLY BREATHING 19 BREATHS/MIN. ROOM DARKENED FOR SLEEP AID, ALL MEDICATIONS DUE AT THIS TIME GIVEN. TRIPLE LUMEN REMAINS INTACT WITH ALL 3 PORTS FLUSHING WELL AND DRAWING BLOOD BACK. TPN INFUSING AT 83 ML/HR AND LIPIDS AT 42 ML/HR. WILL CONTINUE TO MONITOR PATIENT CLOSELY SHE IS RIGHT ACROSS FROM NURSING STATION. PT'S FAMILY LEFT AROUND 1999 FOR THE NIGHT.
--- NOTE | 2017-06-20 21:17 | NUR ---
PATIENT REMAINS VERY RESTLESS IN BED, TURNING FROM SIDE TO SIDE AND PULLING AT IV LINES, PULLING AT MONITOR CORDS, PULLING AT ART LINE SET UP. PATIENT ASKED IF SHE WAS TIRED AND SHE REPLIED "NO." PATIENT CONTINUES TO WEAR BIPAP BUT FREQUENTLY HAS BIPAP COME OFF DUE TO HER MOVING IN BED. PATIENT GIVEN 0.5 MG IV HALDOL AT THIS TIME. PATIENT ALSO NOTED TO BE DIAPHORETIC ON HER FOREHEAD. HEART RATE REMAINS 40-70s MOSTLY AT THIS TIME. ECG MONITOR HAVING A HARD TIME PICKING UP HER HEART RHYTHM WHEN PATIENT TURNS TO LEFT SIDE. ALL ELECTRODE LEADS REPLACED AT THIS TIME. PT BEING MONITORED VERY CLOSELY AND THIS RN IN ROOM ABOUT EVERY FIVE MINUTES.
--- NOTE | 2017-06-20 21:41 | NUR ---
PATIENT PULLING BIPAP MASK OFF AGAIN. PATIENT REORIENTED AND TOLD WHY IT'S IMPORTANT FOR HER TO KEEP HER MASK ON. PATIENT STATES, "I'M ALMOST GONE." I THEN ASKED PATIENT WHAT SHE MEANT BY THAT AND SHE STATES, "I'M ALMOST GONE, TO MY HEAVEN, AND I CAN'T BREATHE. AND I CAN'T DO THIS MUCH LONGER." PATIENT REASSURED THAT SHE IS DOING BETTER AND MASK PLACED BACK ON PATIENT AT THIS TIME.
--- NOTE | 2017-06-20 21:50 | NUR ---
DR. GOMEZ CALLED AND UPDATED ON PATIENT'S CONDITION AND HER RECENT CONVERSATION WITH THIS RN. DR. GOMEZ REQUESTING THAT DR. RACHEL BE UPDATED WELL AND POTENTIALLY GIVEN MORE HALDOL IF NEEDED.
--- NOTE | 2017-06-20 22:05 | NUR ---
DR. RACHEL UPDATED ON PT'S CONDITION. ORDER REC'D TO DRAW ABG. WILL UPDATE DR. RACHEL WITH RESULTS OF ABG.
--- NOTE | 2017-06-20 22:10 | NUR ---
ABG DRAWN FROM LEFT RADIAL ART LINE. PT RESTING WITH BIPAP ON AND RR IS 21 AT THIS TIME.
--- NOTE | 2017-06-20 22:24 | NUR ---
DR. RACHEL UPDATED ON ABG RESULTS AND ORDER REC'D TO GIVE 1 MG IV HALDOL AND BIPAP SETTINGS TO CHANGE TO 18/8. CONTINUE TO MONITOR. PATIENT MAY RECEIVE 0.5 MG IV HALDOL EVERY HALF HOUR UNTIL SHE CALMS DOWN. BIPAP SETTINGS CHANGED AT 2220. NEXT ABG TO BE DRAWN AT 2250.
--- NOTE | 2017-06-20 23:11 | NUR ---
0.5 MG IV HALDOL GIVEN AT THIS TIME. PATIENT CONTINUES TO BE RESTLESS, PULLING BIPAP MASK OFF, PULLING AT BIPAP MACHINE, TOSSING AND TURNING IN BED. SP02 100% ON 35% FI02 BIPAP WITH 18/8 SETTINGS. CONTINUE TO MONITOR.
--- NOTE | 2017-06-21 00:17 | NUR ---
PATIENT CONTINUES TO BE VERY DIAPHORETIC AND IS SWEATY, MOSTLY NOTICED AROUND HER HAIRLINE AND FACE. PATIENT HAS BEEN TOSSING AND TURNING IN BED STILL, PULLING THE CORDS OUT OF THE BIPAP MACHINE. PATIENT'S LINENS CHANGED AT THIS TIME. PT REPOSITIONED TO SUPINE WITH PILLOWS UNDER EACH HIP AREA IN ATTEMPT TO FLOAT ON PILLOWS. PT SEEMS TO BE RESTING AT THIS MOMENT. CONTINUE TO MONITOR CLOSELY.
--- NOTE | 2017-06-21 01:57 | NUR ---
PATIENT PULLING MASK OFF AT THIS TIME. PATIENT SIGNALING THAT SHE WANTS A SWAB FOR HER MOUTH WHICH SHE IS PROVIDED. PATIENT ASKED HOW SHE IS FEELING, TO WHICH SHE RESPOND "NOT GOOD AT ALL." PATIENT ASKED WHY, AND SHE RESPONDS, "THIS MAY BE THE LAST DAY." PATIENT ASKED IF SHE IS SHORT OF BREATH, AND IN A VERY BREATHLESS WORD SHE ANSWERS YES. PATIENT ASKED IF SHE UNDERSTANDS THAT HER LUNGS ARE NOT DOING WELL AND THAT SHE NEEDS TO CONTINUOUSLY WEAR THIS BIPAP MASK TO KEEP HER BREATHING WELL. PATIENT NODS HER HEAD YES TO THIS. PATIENT ASKED IF SHE REMEMBERS THAT SHE HAD SURGERY AND IF SHE REMEMBERS THAT SHE HAD THE BREATHING TUBE FOR A FEW DAYS, TO WHICH SHE ANSWERS YES. PATIENT ASKED IF SHE WOULD WANT TO HAVE A BREATHING TUBE AGAIN IF SHE NEEDED IT AND SHE STATES NO. PATIENT ASKED IF SHE IS WILLING TO WEAR THE BIPAP MASK MORE TONIGHT AND SHE RESPONDS YES AND ALLOWS RN TO PLACE MASK BACK ON. SP02 DROPS QUICKLY TO 75% WHILE OFF THE BIPAP, WHICH SHE WAS ONLY OFF FOR APPROX 2 MINUTES. PATIENT NOW RESTING CALMLY. CONTINUE TO MONITOR.
--- NOTE | 2017-06-21 03:07 | NUR ---
ABG DRAWN AT THIS TIME. PATIENT MOUTHING WORDS UNDER BIPAP MASK BUT UNABLE TO HEAR PATIENT. MASK TAKEN OFF FOR A BRIEF MOMENT AND PATIENT ABLE TO SAY "WATER." PATIENT GIVEN MOUTH SWAB AND ABLE TO SWAB OUT HER MOUTH INDEPENDENTLY. PT NOW RESTING AND DOES APPEAR COMFORTABLE. RR 16, SP02 100% ON 35%, AND HR 60s AFIB. LAST BP 118/57 (71). CONTINUE TO MONITOR. PT IS NO LONGER DIAPHORETIC LIKE SHE WAS EARLIER IN THE NIGHT.
--- NOTE | 2017-06-21 03:30 | NUR ---
PATIENT PULLS MASK OFF AGAIN. PATIENT ASKED IF SHE IS NEEDING ANOTHER MOUTH SWAB AND SHE NODS YES. PATIENT GIVEN WATER MOUTH SWAB. PATIENT ASKED, "KAVON, DO YOU KNOW WHAT'S GOING ON HERE?" PATIENT RESPONDS, "YES, I'M DYING." PATIENT ASKED, "WHY DO YOU FEEL THAT YOU ARE DYING?" PATIENT RESPONDS, "BECAUSE I AM." PATIENT THEN ASKED IF SHE WOULD BE WILLING TO WEAR THE BIPAP MASK FOR A COUPLE MORE HOURS UNTIL THE MORNING TIME, AND SHE ANSWERS YES AND HELPS PLACE MASK BACK ON HER FACE. PATIENT NOW RESTING IN BED. CONTINUE TO MONITOR CLOSELY. NEXT ABG TO BE DRAWN AT 0600.
--- NOTE | 2017-06-21 06:10 | NUR ---
PATIENT REPOSITIONED IN BED AND LYING ON RIGHT SIDE. PT SEEMS TO PREFER LYING ON HER SIDES. LABS DRAWN FROM CENTRAL LINE WITHOUT DIFFICULTY. ABG DRAWN FROM LEFT WRIST ART LINE. PATIENT CONTINUES TO HAVE SP02 OF 99-100% ON THE 35% BIPAP, BUT IS VERY SHORT OF BREATH AND VISIBLY WORKING EXTREMELY HARD TO BREATH WHENEVER MASK IS TAKEN OFF FOR A SHORT PERIOD OF TIME TO SWAB HER MOUTH OUT. PT NOTED TO BE DIAPHORETIC AGAIN ON HER FOREHEAD, BUT AFEBRIL WITH A TEMP OF 97.2. CONTINUE TO MONITOR. LABS PENDING.
--- NOTE | 2017-06-21 06:33 | NUR ---
DR. RACHEL CALLED AND UPDATED ON PT'S MOST RECENT ABG RESULTS. ORDER REC'D TO INCREASE IPAP TO 20 WHICH RT MADE THIS CHANGE AT THIS TIME. PATIENT CONTINUES TO BE RESTLESS IN BED AND HAS PULLED THE BIPAP CORD OFF THE MACHINE A FEW TIMES IN THE LAST FIFTEEN MINUTES. PT'S LAST DOSE OF HALDOL WAS AROUND 2337.
--- NOTE | 2017-06-21 07:24 | NUR ---
AT 0700, PATIENT NOTED TO BE COUGHING. PT WAS SITTING UP AT THIS TIME AFTER JUST RECEIVING HER CHEST XRAY. PATIENT THEN NOTED TO BE BECOME BRADYCARDIC WITH A HR IN THE 30s, AND PT NOTED TO BE STRUGGLING EVEN MORE. PATIENT THEN NOTED TO BE NAUSEOUS AND ABOUT TO VOMIT. PATIENT VOMITED A SMALL AMOUNT OF LIGHT GREEN EMESIS. PATIENT IMMEDIATELY TURNED TO HER RIGHT SIDE AND BIPAP MASK REMOVED. SUCTION WAS CLOSE AND USED TO SUCTION OUT HER MOUTH. PATIENT'S HEART RATE NOTED TO JUMP BACK UP INTO THE 70-80s. PATIENT GIVEN [address] RACHEL CALLED AND UPDATED AND IN THE UNIT WITHIN A FEW MINUTES TO EVALUATE PATIENT. PATIENT NOW RESTING, WITH LYING ON HER RIGHT SIDE. REPORT GIVEN TO DAY SHIFT.
--- NOTE | 2017-06-21 07:37 | NUR ---
PT INTUBATED BY TONIA INSTRUMENTATION INSTRUCTOR DUE TO RESP THERAPY.
--- NOTE | 2017-06-21 07:42 | NUR ---
NEOSYNEPHRINE GIVEN BY TONIA HYDRANT SETTER DUE TO HYPOTENSION 39/21 MAP 25.
--- NOTE | 2017-06-21 07:44 | NUR ---
LEVOPHED DRIP STARTED PER VERBAL BEDSIDE ORDER.
--- NOTE | 2017-06-21 07:46 | NUR ---
LEVOPHED DRIP OFF PER .
--- NOTE | 2017-06-21 08:16 | NUR ---
LEVOPHED DRIP RESTARTED PER PT HYPOTENSION 60/32 MAP 38. DRIP TO BE TITRATED TO KEEP MAP AT 60-65.
--- NOTE | 2017-06-21 08:16 | NUR ---
pt reintubated at approximatly 0740. pt in restraints x2 arms. pt given iv ativan for anxiety. tears flowing from pt eyes. pt spouse and daughter at the bedside. family request to have father radha and sister behzad in for support. billing supervisor is calling for spiritual support. pt back on norepi drip at 4 mcg/min due to low pressures.
--- NOTE | 2017-06-21 10:25 | NUR ---
FAMILY CONFRENCE - WILLIAN REESE RN, SPOUSE - JUANIS AND BOTH DAUGHTERS IN THE ROOM. ALL OPTIONS DISCUSSED INCLUDING TRACHEOSTOMY AND FOLLOWING THERAPY WITH GOAL TO WEAN PT OFF, AND COMFORT CARE. FAMILY VERBALIZED THEIR WISH TO ATTEMPT THE TRACHEOSTOMY, THEY STATE "I THINK SHE WOULD WANT ONE LAST CHANCE".
--- NOTE | 2017-06-21 11:08 | NUR ---
FULL BED BATH DONE, ELMORE CATH CARE DONE, LINENS AND GOWN CHANGED. PT REPOSITIONED FOR COMFORT RESTRAINTS RELEASED AND ASSESED FOR PT COMFORT AND SAFETY.
--- NOTE | 2017-06-21 12:54 | NUR ---
PT PLACED BACK ON VENT, FAMILY DEFINATELY UPSET. AFTER CONSULT WITH CONSTANZA GMOEZ AND VIRGINIE IT WAS DECIDED TO TRACH PT. LIVER AND KIDNEY FUNCTION ADEQUATE, AND DENISSE MICHELE ABOUT TRACH. FAMILY ALL SEEMS IN AGREEMENT. CHILDREN AND G.CHILDREN PRESENT. REQUESTED FR CAMPUZANO AND FIDELINA CÁRDENAS. CONTACTED FR CAMPUZANO, HE WILL COME IN-SIS UNAVAILABLE. WILL CONTINUE TO FOLLOW FAMILY AND PT.
--- NOTE | 2017-06-21 13:30 | NUR ---
FAMILY AT THE BEDSIDE, PT INEZ TUBE WELL. FATHER JUSTEN VISITING WITH FAMILY.
--- NOTE | 2017-06-21 17:12 | NUR ---
REPOSTIONED PT WITH A PILLOW UNDER BILAT HIPS, PT BOOSTED UP IN BED, RESTRAINTS RELEASED FOR A SHORT BREAK, THEN REATTACHED, ASSESSED FOR PT COMFORT AND SAFETY. PT INEZ MOVEMENT WELL. SCD' IN PLACE. MIDLINE INCSION INTACT AND DRY, EDGES APPEAR WELL APPROXIMATED.
--- NOTE | 2017-06-21 18:02 | NUR ---
PT HAS BEEN ON VENT ALL DAY, INEZ WELL. PT HAS BEEN ON LEVOPHED DRIP ALL DAY TITRATING BETWEEN 4 MCG/MIN TO 6 MCG/MIN. NEW BAG OF TPN HUNG WITH NEW TUBING. PT HAS RECIEVED HALDOL X3 FOR AGITATION, ATIVAN X1 FOR AGITATION. TORADOL 15 MG X1 AND FENTANAYL X1 FOR PAIN. PT VITALS HAVE BEEN WNL, NO FEVERS TODAY. FAMILY HAVE BEEN AT THE BEDSIDE ALL DAY. PT ABD INCISION INTACT, NO DRAINAGE, EDGES WELL APPROXIMATED. ABG LABS DRAWN X2, PT SHOWING IMPROVEMENT. CVP LINE SET UP, DECIDED BY THAT PT FLUID STATUS IS APPROPREATE, NO ADDITIONAL FLUIDS ORDERED. RESTRAINTS INTACT X2 ON BILAT HANDS, RESTRAINTS ASSESSED Q2 HOURS FOR PT SAFETY AND COMFORT. FULL BED BATH DONE, LINENS CHANGED, ELMORE CATH CARE DONE, GOWN CHANGED, PT INEZ WELL.
--- NOTE | 2017-06-21 18:53 | NUR ---
PT APPEARED RESTLESS TO FAMILY MEMBERS, ORAL SUCTIONED PT WELL SUCTIONED PT DOWN ET TUBE. PT GIVEN 12.5 MG IV FENTANAYL GIVEN FOR GENERALIZED DISCOMFORT.
--- NOTE | 2017-06-21 19:30 | NUR ---
SHIFT REPORT RECEIVED FROM YONI DORSEY. FAMILY MEMBERS AT BEDSIDE. FAMILY REPORTS THAT PT IS STARTING TO MOVE HANDS AND IS APPEARING MORE ANXIOUS. PRN ATIVAN GIVEN FOR RASS: +1. R.T. IN TO ROOM TO PROVIDE SUCTION. RESTRAINTS CHECKED. WILL CONTINUE TO MONITOR.
--- NOTE | 2017-06-21 20:45 | NUR ---
ASSESSMENT COMPLETED. PT GRIMACING, APPEARS RESTLESS 12.5MCG IV FENTANYL GIVEN AT 2019. AT 2039 PT WAS STILL APPEARING RESTLESS WITH RASS: +1, 0.5MG IV ATIVAN ADMINISTERED. PT IS INTUBATED, CMV, FIO2: 30, VT: 450, PEEP:5. CVP ZEROED: 17. PT REPOSITIONED SUPINE. RESTRAINTS RELEASED AND THEN REATTACHED. ORAL CARE AND SUCTIONING PROVIDED BY R.T. LUNGS COARSE. HR IRREGULAR. BOWEL TONES HYPOACTIVE, ABDOMEN IS SOFT. MIDLINE INCISION HAS MIKI INTACT AND IS OPEN TO AIR, EDGES WELL APPROXIMATED. SCD'S IN PLACE. ELMORE PATENT. CENTRAL LINE DRESSING INTACT, ALL 3 LUMENS IN USE. TPN INFUSING. LEVOPHED CONTINUES AT 6MCG/MIN. ARTERIAL LINE IN PLACE WITH ARM BOARD PRESENT. CB. WILL CONTINUE TO MONITOR.
--- NOTE | 2017-06-21 21:50 | NUR ---
PT APPEARING RESTLESS, 0.5MG IV ATIVAN ADMINISTERED PER ORDER.
--- NOTE | 2017-06-21 22:00 | NUR ---
PT NOW RESTING MORE COMFORTABLY SINCE RECEIVING PRN ATIVAN. RASS: -1 AT THIS TIME. REPOSITIONED PT ONTO LEFT SIDE. LEVOPHED CONTINUES AT 6MCG/MIN. VENT SETTINGS UNCHANGED. WILL CONTINUE TO MONITOR.
--- NOTE | 2017-06-21 23:01 | NUR ---
PT SQUIRMING AND GRIMACING, TRYING TO MOVE ARMS AND LEGS. FENTANYL AND ATIVAN ADMINISTERED. LEVOPHED CONTINUES UNCHANGED. VENT SETTINGS UNCHANGED. ELMORE DRAINING FREELY. RESTRAINTS CHECKED. WILL CONTINUE TO MONITOR.
--- NOTE | 2017-06-22 00:21 | NUR ---
ASSESSMENT COMPLETED, NO CHANGES FROM PREVIOUS ASSESSMENT. VENT SETTINGS UNCHANGED. LEVOPHED CONTINUES AT 6MCG/MIN. BP:103/85, ART PRESSURE: 107/69. RASS: +1, PRN ATIVAN ADMINISTERED. REPOSITIONED PT ONTO HER LEFT SIDE AT THIS TIME. WILL CONTINUE TO MONITOR.
--- NOTE | 2017-06-22 01:00 | NUR ---
IN TO ASSESS PT. OCCASIONALLY GRIMACING, PRN FENTANYL ADMINISTERED. RASS: -2. CHECKED RESTRAINTS. VENT SETTINGS UNCHANGED. LEVOPHED UNCHANGED. WILL CONTINUE TO MONITOR.
--- NOTE | 2017-06-22 02:10 | NUR ---
IN TO ASSESS PT. RASS: -2. CHECKED RESTRAINTS. LEVOPHED CONTINUES AT 6MCG/MIN, BP: 119/65(78) AND ART PRESSURE: 114/67. VENT SETTINGS UNCHANGED. REPOSITIONED PT SUPINE. AFTER REMOVING PILLOW FROM UNDER PT, PT BEGAN TO GRIMACE AND STARTED TO APPEAR RESTLESS. PRN FENTANYL GIVEN FOR DISCOMFORT. WILL CONTINUE TO MONITOR.
--- NOTE | 2017-06-22 03:10 | NUR ---
TITRATED LEVOPHED TO 5 MCG/MIN, BP: 152/70 (90) ART PRESSURE: 132/83. PT RESTLESS RASS: +1, NODS WHEN I ASKED IF SHE WAS HAVING PAIN. PRN ATIVAN AND FENTANYL GIVEN. CHECKED RESTRAINTS. VENT SETTINGS UNCHANGED.
--- NOTE | 2017-06-22 04:10 | NUR ---
TITRATED LEVOPHED TO 4 MCG/MIN. BP: 161/80, ART PRESSURE: 144/90. REPOSITIONED PT IN BED SO THAT BILATERAL HIPS ARE FLOATING ON PILLOWS. R.T. IN A LITTLE WHILE AGO AND PROVIDED ORAL CARE AND SUCTIONING. RASS: -2, PT BECAME RESTLESS WITH REPOSITIONING, NODDED HEAD WHEN I ASKED IF SHE WAS IN PAIN, FENTANYL ADMINISTERED. ASSESSMENT COMPLETED, NO CHANGES. NO CHANGES TO VENT SETTINGS. RESTRAINTS CHECKED. WILL CONTINUE TO MONITOR.
--- NOTE | 2017-06-22 04:43 | NUR ---
PT APPEARS MORE RESTLESS, IS OBSERVED REACHING FOR TUBING. RASS: +1, PRN ATIVAN ADMINISTERED PER ORDER. CHECKED RESTRAINTS. WILL CONTINUE TO MONITOR.
--- NOTE | 2017-06-22 05:00 | NUR ---
TITRATED LEVOPHED TO 3 MCG/MIN. BP:135/67, ART PRESSURE: 116/80, CVP:11.
--- NOTE | 2017-06-22 05:24 | NUR ---
PT RESTLESS, GRIMACING, MOVING ARMS AND LEGS. RASS: +1, PRN ATIVAN ADMINISTERED. PRN FENTANYL ADMINISTERED FOR DISCOMFORT. WILL CONTINUE TO MONITOR.
--- NOTE | 2017-06-22 06:00 | NUR ---
TITRATED LEVOPHED TO 2 MCG/MIN. BP:147/84, ART PRESSURE: 111/51, CVP: 13. REPOSITIONED PT IN BED SO THAT SHE IS ON HER LEFT SIDE. PT GRIMACING AND RESTLESS AFTER THIS, PRN FENTANYL ADMINISTERED. RESTRAINTS RELEASED AND THEN REPLACED. VENT SETTINGS UNCHANGED. WILL CONTINUE TO MONITOR.
--- NOTE | 2017-06-22 06:22 | NUR ---
PT RESTLESS, RASS: +1. PRN ATIVAN GIVEN PER ORDER. CHECKED RESTRAINTS. WILL CONTINUE TO MONITOR.
--- NOTE | 2017-06-22 07:00 | NUR ---
PT REMAINS RESTLESS, REACHING WITH HANDS TO TRY TO PULL ON TUBING. RESTRAINTS CHECKED. RASS: +1, PRN ATIVAN GIVEN PER ORDER. WILL CONTINUE TO MONITOR.
--- NOTE | 2017-06-22 07:40 | NUR ---
CALLED TO UPDATE ON PT AGITATION. ORDER GIVEN TO INCREASE FENTANYL TO 25-50 MCG Q 30 FOR DISCOMFORT OR AGITATION PRN, FROM 12.5 MCG.
--- NOTE | 2017-06-22 08:05 | NUR ---
PT REPOSTIONED FOR COMFORT WRISTS RELEASED FROM RESTRAINTS FOR SHORT WHILE. PT RESTRAINTS BACK IN PLACE, ASSESED FOR COMFORT AND SAFETY. PT CENTRALLINE INTACT, NO REDNESS OR SWELLING NOTED, FLUIDS INFUSING EASILY, ALL THREE LUMINS IN USE AT THIS TIME. URINE OUTPUT IS GREATER THAN QS AT THIS TIME.
--- NOTE | 2017-06-22 09:15 | NUR ---
ABG DRAWN OFF ART LINE. 4 ML WASTED.
--- NOTE | 2017-06-22 09:46 | NUR ---
MIKI REMOVED FROM MIDLINE INCSION PER VERBAL ORDER. EDGES WELL APPROXIMATED, WOUND DID NOT REOPEN, NO DRAINAGE NOTED, PT INEZ WELL.
--- NOTE | 2017-06-22 11:15 | NUR ---
PHYSICAL THERAPY WORKING PASSIVE RANGE OF MOTION WITH PT. PT INEZ WELL.
--- NOTE | 2017-06-22 11:25 | NUR ---
PT REPOSITIONED TO LEFT SIDE PILLOW UNDER RT HIP.
--- NOTE | 2017-06-22 14:06 | NUR ---
DISCUSSED BLOOD PRESSURE CHANGE WITH DR RACHEL. BLOOD PRESSURE DOWN TO 87/46 (55), ORDER TO PUT BACK ON LEVOPHED AND LEAVE ON FOR THE DAY
--- NOTE | 2017-06-22 14:29 | NUR ---
PT PLACED BACK ON VENT YESTERDAY. AFTER MUCH DISCUSSION WITH CONSTANZA, FAMILY HAS DEDIDED TO PLACE A TRACH AND DISCUSS FURTHER CARE. VISITED WITH VARIOUS MEMBERS OF THE FAMILY, HELPING THEM CONFIRM IN THEIR OWN MIND THAT THE TRACH IS THE RIGHT WAY TO GO. A REAL DILEMA FOR ALL THE FAMILY. WILL CONTINUE TO FOLLOW AND GIVE SUPPORT-GOD BLESS THEM
--- NOTE | 2017-06-22 14:45 | NUR ---
PT GIVEN HIBACLEANSE WIPE DOWN, NEW GOWN PLACED, ELMORE CATH CARE DONE. SCD'S IN PLACE. PT HAS GOOD URINE OUTPUT. VITALS ARE STABLE AT THIS TIME.
--- NOTE | 2017-06-22 14:55 | NUR ---
FENTANAYL 50 MCG GIVEN IV FOR RESTLESSNESS AND POSSIBLE PAIN.
--- NOTE | 2017-06-22 15:12 | NUR ---
06/22/17 1512 [address] [place] 1502-PATIENT ARRIVED TO PACU ON 2L NC O2 SAT 100% PATIENT AWAKE DENIES PAIN OR NAUSEA. ENCOURAGED TO PASS FLATUS. ABDOMEN SOFT
--- NOTE | 2017-06-22 15:35 | NUR ---
PT LEFT TO OR WITH OPERATING ROOM CREW. SUPPORT SERVICES SPECIALIST BAGING PT.
--- NOTE | 2017-06-22 17:12 | NUR ---
PT BACK INTO CCU CARE, FULL REPORT GIVEN BY INDUSTRIAL MAINTENANCE MILLWRIGHT.
--- NOTE | 2017-06-22 17:56 | NUR ---
CENTRAL LINE CARES DONE, HEPARIN FLUSHED, POSIFLOW CAPS CHANGED, NO BLOOD RETURN OBTAINED ON ANY LUMIN.
--- NOTE | 2017-06-22 18:20 | NUR ---
ATIVAN GIVEN FOR PT AGITATION.
--- NOTE | 2017-06-22 18:49 | NUR ---
ART LINE FLUSHES WELL.
--- NOTE | 2017-06-22 19:30 | NUR ---
REPORT RECEIVED FROM WILLIAN VALLEJO. RT IN ROOM, SUCTIONING PT. PT IS PULLING AT RESTRAINTS, LOOKS UNCOMFORTABLE. 25MCG IV FENTANYL GIVEN.
--- NOTE | 2017-06-22 19:50 | NUR ---
ASSESSMENT DONE. TRACH IN PLACE, SECURED WITH COLLAR. SLIGHT DRAINAGE LEAKING FROM UNDER OPSITE. PT IS ON VENT WITH FIO2 40%, RATE AT 18, PEEP 5. PT IS RESTFUL NOW AFTER GETTING FENTANYL, BUT RESPONDS TO VOICE. RT IN TO DO MORE SUCTIONING, 1MG IV ATIVAN GIVEN.
--- NOTE | 2017-06-22 20:15 | NUR ---
LEVOPHED DRIP TURNED TO STANDBY. WILL CONTINUE TO MONITOR.
--- NOTE | 2017-06-22 20:38 | NUR ---
PT REPOSITIONED. RT IN TO ASSIST WITH SUCTIONING.
--- NOTE | 2017-06-22 21:14 | NUR ---
DR GOMEZ CALLED TO INFORM OF NO BLOOD RETURN ON CENTRAL LINE, ORDER GIVEN TO USE CATHFLO, UPDATED REGARDING PTS GENERAL CONDITION.
--- NOTE | 2017-06-22 22:00 | NUR ---
CATHFLO ADMINISTERED TO CENTRAL LINE, ABLE TO GET BLOOD RETURN ON BROWN PORT AFTER TWO MINUTES. STILL WAITING TO SEE IF OTHER TWO PORTS WILL REGAIN FUNCTION.
--- NOTE | 2017-06-22 22:42 | NUR ---
PT HAS BEEN MAINTAINING BP'S WITH LEVOPHED DRIP OFF. REPOSITIONED. AREA AROUND TRACH CLEANED UP, STILL HAVING SOME DRAINAGE OF SOME MUCOUSY/SEROUS DISHCHARGE.
--- NOTE | 2017-06-23 00:50 | NUR ---
PT REPOSITIONED AND ASSESSMENT DONE. AWAKENS AND LOOKS UNCOMFORTABLE, STARTING TO PULL AT RESTRAINTS. 1MG IV ATIVAN AND 25 MCG IV FENTANYL GIVEN.
--- NOTE | 2017-06-23 02:30 | NUR ---
PT GIVEN SECOND DOSE OF CATHFLO PROXIMAL PORT STILL DOES NOT HAVE BLOOD RETURN. PT HAS BEEN WAKING UP AND PULLING AT RESTRAINTS, REACHING UP FOR TUBES AND LINE. HAS BEEN GETTING FENTANYL AND ATIVAN EVERY 30 MIN TO AN HOUR, APPROXIMATELY. PT REPOSITIONED.
--- NOTE | 2017-06-23 04:38 | NUR ---
ASSESSMENT DONE. PT REPOSITIONED. NODS YES THAT SHE IS IN PAIN, 25MCG IV FENTANYL GIVEN. RT IN TO CHANGE TRACH COLLAR, SUCTIONING DONE. PT HAVING A LOT OF MUCOUSY SECRETIONS OUT OF TRACH SITE. CENTRAL LINE DRESSING CHANGE DONE. SECOND DOSE OF CATHFLO WAS GIVEN AND NOW ALL THREE PORTS OF CENTRAL LINE HAVE BLOOD RETURN. LEVOPHED DRIP HAS REMAINED OFF. LAST BP 116/53 MAP 66. HR 80'S.
--- NOTE | 2017-06-23 05:38 | NUR ---
PT IS PULLING AT RESTRAINTS, TWISTING LEGS AND BODY IN BED, GRIMACING. ATTEMPTED TO ORIENT, EXPLAIN SITUATION TO PT, PT NOT CALMING OR RELAXING. NODS YES TO PAIN. 25MCG IV FENTANYL GIVEN WITH 1MG IV ATIVAN.
--- NOTE | 2017-06-23 08:07 | NUR ---
WHITEBOARD UPDATED, ROOM TIDIED
--- NOTE | 2017-06-23 10:44 | NUR ---
BOOSTED PATIENT UP IN BED. 3PA
--- NOTE | 2017-06-23 11:05 | NUR ---
FAMILY AT THE BEDSIDE. WHEN ASKED PT IF SHE WAS PAINFUL SHE MOUTHED THE WORD "NO". WHEN ASKED PT IF SHE WOULD LIKE HER MOUTH SWABED, SHE MOUTHED THE WORD "YES". PT COOPERATIVE WITH MOUTH SWABING. PT APPEARS CALM AT THIS TIME, STILL NOT OPENING EYES.
--- NOTE | 2017-06-23 11:20 | NUR ---
ASSISTED PATIENT WITH USING URINAL BY BEDSIDE
--- NOTE | 2017-06-23 12:20 | NUR ---
PT GAGGED UP MODERATE AMOUNT OF BLOOD STREAKED SPUTUM OUT OF MOUTH. PT APPEARS MORE COMFORTABLE AFTER.
--- NOTE | 2017-06-23 12:35 | NUR ---
REPOSITIONED PATIENT AND SLID HER UP IN BED. 3PA. PATIENT HAD A VERY PRODUCTIVE COUGH, RN SUCTIONED HER.
--- NOTE | 2017-06-23 13:15 | NUR ---
PUT SCD'S AND HEEL PROTECTORS BACK ON PATIENT
--- NOTE | 2017-06-23 13:30 | NUR ---
REPOSITIONED PATIENT, SLID UP IN BED
--- NOTE | 2017-06-23 14:11 | NUR ---
CALLED TO UPDATE ON PT RESTLESS STATUS. ORDER GIVEN TO GIVE ATIVAN NEEDED PRN FOR RASS ABOVE 0, 0.5-1 MG IV.
--- NOTE | 2017-06-23 14:56 | NUR ---
PT RESTING QUIETLY AT THIS TIME WITH FAMILY AT THE BEDSIDE. VITALS ARE STABLE. URINE OUTPUT WNL.
--- NOTE | 2017-06-23 16:08 | NUR ---
Patient receiving daily TPN. Orders written for TPN AA 5%/Dextrose 20% at 2L daily. As this solution is presently not available, pharmacy has substituted TPN AA 5%/Dextrose 15% 2L solution with additional 200ml D50 to bring daily carbohydrate to 400g. This increases the daily TPN volume to 2200ml.
--- NOTE | 2017-06-23 17:54 | NUR ---
PER PT AGITATION AND POSSIBLE PAIN, 50 MCG FENTANYL IV GIVEN. PT ORAL SUCTIONED FOR SECRETIONS.
--- NOTE | 2017-06-23 18:16 | NUR ---
PT RESTING QUIETLY AT THIS TIME.
--- NOTE | 2017-06-23 20:04 | NUR ---
BEDSIDE REPORT RECEIVED FROM YONI DORSEY. PT RESTING AT THAT TIME, BUT IS NOW MORE RESTLESS AND MOVING ARMS AGAINST RESTRAINTS AND MOVING LEGS TO SIDE OF BED. PT GIVEN 1 MG IV ATIVAN FOR SEDATION. VENT SETTINGS ARE CMV 16, VT 450, PEEP 5, FI02 30%. NEW ELMORE JUST PLACED PER DAY SHIFT. YELLOW CLEAR URINE DRAINING. TEMP PROBE ELMORE READING 100.6 CURRENTLY. HEART RATE 90s, AFIB. LAST BP 133/91 (100). PT OVER BREATHING VENT CURRENTLY WITH RR 18. RT NOW IN ROOM SUCTIONING PATIENT.
--- NOTE | 2017-06-23 20:30 | NUR ---
PATIENT GIVEN 25 MCG FENTANYL AT THIS TIME. PT RESTLESS IN BED AND SCOOTING SELF DOWN, TURNING HEAD SIDE TO SIDE, AND OVERALL APPEARS UNCOMFORTABLE. RASS IS +1 AND OUR RASS GOAL IS -2. SP02 IS 100% CURRENTLY. DR. RACHEL IN ROOM AND UPDATED ON PT'S TEMP AND OVERALL AGITATION. ORDER REC'D TO DRAW BLOOD CULTURES X2 SITES, ONE FROM CENTRAL LINE AND ONE PERIPHERAL, AND SEND A URINE SAMPLE. URINE SAMPLE OBTAINED AND SENT. DR. RACHEL AND THIS RN DISCUSSING SEDATION MEDICATIONS FOR PATIENT SINCE SHE SEEMS OVERALL MORE RESTLESS TONIGHT.
--- NOTE | 2017-06-23 20:52 | NUR ---
PATIENT MORE CALM AFTER DOSE OF FENTANYL. IV FENTANYL DRIP ORDERED AND WILL BE STARTED SOON. CONTINUE TO MONITOR.
--- NOTE | 2017-06-23 22:15 | NUR ---
ART LINE DISCONTINUED FROM LEFT WRIST AND PRESSURE HELD ON SITE FOR 5 MINUTES. NO BLEEDING OR HEMATOMA NOTED. GOOD PULSE PALABLE. TIP OF ART LINE SENT IN STERILE SPECIMEN CUP FOR CULTURING.
--- NOTE | 2017-06-23 22:29 | NUR ---
FENTANYL DRIP STARTED AT 2200 AT 1 MCG/KG/HR TO MAINTAIN A RASS GOAL OF -2 DURING THE NIGHT. INCREASED TO 2 MCG/KG/HR AT 2218 DUE TO PATIENT BEING RESTLESS STILL AND RASS SCORE OF -1. CONTINUE TO MONITOR CLOSELY. ART LINE D/C PER DR. GOMEZ'S VERBAL ORDER ON TELEPHONE. CATHFLO INSERTED INTO BROWN PORT ON CENTRAL LINE DUE TO INABILITY TO FLUSH LINE. TPN INFUSING AT 92 ML/HR. CONTINUE TO MONITOR.
--- NOTE | 2017-06-23 22:49 | NUR ---
FENTANYL DRIP TURNED DOWN TO 1 MCG/KG/MIN. PT'S LAST BP 89/39 (51) AND PATIENT RESTING WELL AT THIS TIME. CURRENT RASS IS -3. CONTINUE TO MONITOR.
--- NOTE | 2017-06-23 23:07 | NUR ---
PATIENT GIVEN 650 MG TYLENOL SUPP AND TURNED TO RIGHT SIDE AND POSITIONED WITH PILLOWS. PT NOTED TO BE MAKING SNORING SOUNDS WHEN SHE IS HEAVILY SLEEPING. SUCTIONED PER RT. CONTINUE TO MONITOR. RESTRAINTS REMAIN IN PLACE.
--- NOTE | 2017-06-23 23:35 | NUR ---
BROWN PORT STILL NOT ABLE TO ASPIRATE BLOOD, BUT FLUSHES EASILY STILL. LINE NEEDED FOR INFUSION OF FENTANYL GTT. PT RESTING WELL AT THIS TIME. CONTINUE TO MONITOR.
--- NOTE | 2017-06-24 01:53 | NUR ---
PATIENT REPOSITIONED TO LEFT SIDE. PT HAS QUITE A BIT OF EDEMA DEPENDENTLY AND IN BILATERAL HANDS. SEROSANGINOUS DRAINAGE REMAINS EVIDENT AROUND TRACH SITE. PT ALSO NOTED TO HAVE FLATULENCE WHEN WE WERE MOVING HER AROUND IN BED. ABSORBANT CHUX PAD PLACED UNDER PATIENT. CONTINUE TO MONITOR.
--- NOTE | 2017-06-24 04:05 | NUR ---
UPON TURNING PATIENT AROUND 0330, NOTED TO HAVE A SMEAR OF MUCOUS BROWN LIKE STOOL, SCANT IN QUANTITY.
--- NOTE | 2017-06-24 04:37 | NUR ---
FENTANYL GTT CURRENTLY INFUSING AT 0.25 MCG/KG/HR. PT'S BLOOD PRESSURE VARIES FROM THE HIGH 80-90s, TO THE 110s SYSTOLIC. PATIENT OPENS EYES AND RESPONDS APPROPRIATELY TO VOICE, AND ANSWERS QUESTIONS BY EITHER SHAKING HEAD YES OR NO. PATIENT NOTED TO BE MOVING ALL FOUR EXTREMITIES. CONTINUE TO MONITOR.
--- NOTE | 2017-06-24 05:23 | NUR ---
FENTANYL GTT INCREASED TO 0.5 MCG/KG/HR FOR A RASS SCORE OF +1. PT DENIES PAIN WHEN ASKED BUT NODS HEAD YES WHEN ASKED, "ARE YOU FEELING RESTLESS?" RT IN ROOM TO DRAW AM BLOOD GAS. OTHER LABS TO BE DRAWN FROM CENTRAL LINE.
--- NOTE | 2017-06-24 06:51 | NUR ---
PATIENT SEEMS TO BE PURPOSEFULLY INTERACTIVE THIS AM AND ANSWERING QUESTIONS WITH NODS AND SHAKES OF HER HEAD. PT GAVE ME A THUMBS UP WHEN ASKED, AND ALSO OPENED EYES ON COMMAND. PT EVEN SMILED AT ME AT ONE POINT. PT REORIENTED BEST POSSIBLE. CONTINUE TO MONITOR.
--- NOTE | 2017-06-24 08:27 | NUR ---
PATEINT WAS REPOSITIONED WITH NURSE AND WILL GIVE HER A BED BATH LATER ON IN THE DAY.
--- NOTE | 2017-06-24 09:30 | NUR ---
PLACED NEW CENTRAL LINE TUBING IN SAME SITE, REPLACED ENTIRE SET. PT INEZ WELL. BLOOD RETURN OBTAINED FROM EVERY LUMIN. FLUIDS NOW INFUSING EASILY. TIP OF OLD CENTRAL LINE SENT FOR CULTURE.
--- NOTE | 2017-06-24 10:00 | NUR ---
NG FEEDING TUBE PLACED BY , X-RAY VERIFIED TIP PLACEMENT IN THE STOMACH. SAYS IT IS PLACED APPROPRIATLY AND CAN BE USED. SECURED AT 55CM AT THE LEFT NARE WITH SILK TAPE AND OPSITE.
--- NOTE | 2017-06-24 10:06 | OR ---
[facility] [address], [place] [address] Signed DATE OF OPERATION: 06/22/2017 SURGEON: Shukri Gomez MD PREOPERATIVE DIAGNOSES: 1. Persistent respiratory failure. 2. History of ischemic bowel with resection on June 14, 2017. POSTOPERATIVE DIAGNOSES: 1. Persistent respiratory failure. 2. History of ischemic bowel with resection on June 14, 2017. PROCEDURE: Tracheostomy (Mason Shiley). COUNTY JUDGE: Nurse (Torie Chatman RN). ANESTHESIA: Ketamine sedation, Shukri Jefferson CRNA. INDICATION: This 86-year-old white woman was admitted on June 13, 2017, for diffuse abdominal pain. I was consulted on June 14, 2017, where she was found to have generalized peritonitis and underwent operation, which showed bowel 2 feet in length related to an internal hernia and adhesion. The bowel was resected and [id number] anastomosis undertaken. The patient has had multiple variably successful extubations over the past several days, unable to sustain her own ventilations to maintain normocarbia and pH. She oxygenates well, however. On that basis, a tracheostomy is anticipated to allow for weaning on that approach so as to avoid vocal cord injury and tracheomalacia problems. Options of management have been reviewed with her family in detail including that of expectant management, withdrawal of care, transfer elsewhere, and they wish strongly to proceed with tracheostomy and deliberate ventilator weaning for her respiratory failure. They understand the risks of bleeding, infection, risks of dislodgement of the device, and most importantly an inability to recover from her debility given her advanced age and Electronically Signed By: SHUKRI GOMEZ MD 06/24/17 1006 PATIENT NAME: SAEED OBRIEN OPERATIVE REPORT DATE OF : 32 PHYSICIAN: SHUKRI GOMEZ MD REPORT #: [id number] REPORT IS CONFIDENTIAL AND NOT TO BE RELEASED WITHOUT AUTHORIZATION [facility] [address], [place] [address] Signed underlying respiratory failure. Understanding this, they wish to proceed. FINDINGS: The tracheostomy was easily placed without complication. A 6 Shiley type device was placed. A "T" incision was made below the 2nd tracheal ring and the tube was placed without problem under direct visualization. Good ventilations were noted at conclusion. The device was well secured with a posterior neck tie and sutures to the skin and the flange. DESCRIPTION OF PROCEDURE: The patient was brought to the operating room and placed on the operating table. A shoulder roll was placed and slight extension of the neck undertaken. Arms were placed at the side. She was already ventilated with an endotracheal tube. The neck and upper torso were prepared with chlorhexidine solution and draped sterilely. She was already under antibiotic treatment. A transverse incision was made 2 fingerbreadths above the sternal notch in relationship to the thyroid cartilage. She has relatively distended neck veins bilaterally. These were avoided. A transverse incision was made and platysmal layer divided with electrocautery. The midline fascia was incised longitudinally between the levels of the large veins and dissection carried to the anterior aspect of the airway. A portion of the isthmus of the thyroid was elevated from the trachea and doubly secured with 3-0 silk suture and ties and divided. Dissection directly over the trachea was undertaken, freeing it from soft tissue, extending from the cricoid cartilage distalward to the mediastinum. The tracheal rings were counted and marked. Below the 2nd tracheal ring was considered most appropriate site for a transverse incision. The cartilage beneath this (ring 3) was secured with a 2-0 Prolene suture as stay sutures. The side guider deflated the balloon and a transverse incision was made beneath the 2nd tracheal ring. The underlying balloon could be well visualized. A midline incision was then made inferiorly, transecting the 3rd and 4th rings and strutting the corners of the opening with the stay sutures. The endotracheal tube was withdrawn to just above the opening and the previously inspected and tested Shiley #6 tracheostomy tube (nonfenestrated) was easily passed into the trachea. Ventilations were assured by the side guider. Once this was assured, the balloon was inflated. There was no air leak. The flange of the device was secured to the skin edges with 2-0 nylon suture. Ultimately, a ribbon tie was placed through the device behind the neck securely, but not too tight. The patient was ultimately transferred to the intensive care unit for further management, having suffered no complication. Essentially, no blood loss was noted. Electronically Signed By: SHUKRI GOMEZ MD 06/24/17 1006 PATIENT NAME: SAEED OBRIEN OPERATIVE REPORT DATE OF : 31 PHYSICIAN: SHUKRI GOMEZ MD REPORT #: [id number] REPORT IS CONFIDENTIAL AND NOT TO BE RELEASED WITHOUT AUTHORIZATION [facility] [address] [place] [id number] Signed MD STANLEY Irwin/MODL /[id number] cc: MD Ameena Hunter MD Lohith Veerappa Reddy, MD Electronically Signed By: SHUKRI GOMEZ MD 06/24/17 1006 PATIENT NAME: MICAHSAEED RYLEE OPERATIVE REPORT DATE OF : 31 PHYSICIAN: SHUKRI GOMEZ MD REPORT #: [id number] REPORT IS CONFIDENTIAL AND NOT TO BE RELEASED WITHOUT AUTHORIZATION
--- NOTE | 2017-06-24 14:13 | NUR ---
Patient NPO on TPN *7 days. Currently receiving approximately 2190kcal, 100gm protein from TPN and lipid infusion which should be adequate to meet nutrient needs. Noted NG tube placed today for enteral feeding. Albumin 2.5. Tube feeding recommendations: Formula - Vital 1.5. Start at 25ml/hour. Advance by 25ml every 8 hours (or longer depending on tolerance and residuals). Goal rate 65ml/hour continuous to provide 2245kcal, 100gm protein,1135ml free water and 100% RDI for vitamins/minerals. Add water flush 150ml q 4 hours for total fluid 2000ml/day via TF and flushes Check residuals per protocol.
--- NOTE | 2017-06-24 15:30 | NUR ---
PT ON SEDATION VACATION AND ON CPAP SETTING, INEZ WELL.
--- NOTE | 2017-06-24 16:08 | NUR ---
NURSES NEEDED HELP REPOSITIONING THE PATIENT I AIDED THEM!
--- NOTE | 2017-06-24 16:45 | NUR ---
PT BACK ON THE VENT, INEZ SEDATION VACATION WELL.
--- NOTE | 2017-06-24 18:36 | NUR ---
JEVITY FEEDING STARTED WITH KANGROO PUMP AT 25 ML/HR.
--- NOTE | 2017-06-24 19:00 | NUR ---
PT INEZ 2 SEDATION VACATIONS WELL TODAY ON THE CPAP SETTING. PT ABLE TO NOD HEAD "YES" OR "NO", ALSO ABLE TO MOUTH WORDS. PT HAS DENIED PAIN FOR MOST OF THE SHIFT, INTERACTING WITH FAMILY AT THE BEDSIDE. PT HAS QS URINE OUTPUT, WITH ADMINISTRATION OF LASIX URINE OUTPUT EXCELLENT. PT GIVEN FULL BED BATH TODAY, NEW LINENS, GOWN IN PLACE. REPOSITIONED PT Q2 TWO HOURS AND PRN FOR COMFORT. RESTRAINTS ASSESSED EVERY HOUR FOR PT SAFETY AND COMFORT. PT ABLE TO HELP TURN IN BED DURING LINEN CHANGE. TPN IS NOW OFF. PT ON FENTANYL DRIP ALL SHIFT TITRATING FOR COMFORT AND RASS GOAL OF 0. VITALS WNL. ELMORE CATH CARE DONE WITH BED BATH.
--- NOTE | 2017-06-24 19:20 | NUR ---
BEDSIDE SHIFT REPORT RECEIVED FROM YONI DORSEY. PT HAS EYES OPEN, NODS HEAD "YES" WHEN ASKED IF SHE IS HAVING PAIN, SPECIFICALLY IN HER BELLY. WILLIAN INCREASED FENTANYL DRIP TO 2MCG/KG/HR. PT NOW RESTING COMFORTABLY, RASS NOW -2. JEVITY FEEDING INFUSING AT 25ML/HR, WILL CONTINUE TO MONITOR FOR STOMACH DISCOMFORT. 2 FAMILY MEMBERS AT BEDSIDE. WILL CONTINUE TO MONITOR.
--- NOTE | 2017-06-24 19:40 | NUR ---
RASS: -2, TITRATED FENTANYL TO 1.75
--- NOTE | 2017-06-24 20:00 | NUR ---
ASSESSMENT COMPLETED. RASS: -2. R.T. IN TO PROVIDE TRACH CARE AND SUCTIONING. VENT: CMV, RR 16, FIO2 30, VT 450, PEEP 5, ETCO2 38. LUNGS CLEAR, DIM IN BASES. HR IRREGULAR. BOWEL TONES ACTIVE, +FLATUS. MIDLINE INCISION IS WELL APPROXIMATED. PT CURRENTLY RECEIVING JEVITY THROUGH NG FEEDING TUBE AT 25 ML/HR. NEW OPSITE APPLIED TO SECURE FEEDING TUBE TO FACE. CENTRAL LINE INFUSING WNL, DRESSING C/D/I. SOFT RESTRAINTS TO BILATERAL WRISTS, CMS INTACT. EDEMA PRESENT IN BILATERAL HANDS, RIGHT FOOT/ANKLE, AND GENERALIZED. SKIN TEAR TO RIGHT FOREARM COVERED WITH BANDAID. ELMORE PATENT. CB.
--- NOTE | 2017-06-24 20:15 | NUR ---
TITRATED FENTANYL TO 2 MCG/KG/HR. PT VISIBLY UNCOMFORTABLE DURING SUCTIONING.
--- NOTE | 2017-06-24 21:00 | NUR ---
ORAL CARE PROVIDED, LIP BALM APPLIED. ROM PROVIDED X4 EXTREMITIES. RESTRAINTS REMOVED AND THEN REPLACED. ELMORE AND SARA CARE PROVIDED.
--- NOTE | 2017-06-24 21:13 | NUR ---
CALLED AND LET DR. RACHEL KNOW THAT PT'S TEMP PER ELMORE TEMP PROBE IS 100.4, DR. RACHEL STATES THAT THIS IS NORMAL AND THAT THE CORE TEMP IS WARMER THAN SURFACE TEMP. FOR NOW HE STATES TO CONTINUE TO MONITOR AND WAIT TO GIVE TYLENOL. DR. RACHEL STATES TO NOTIFY HIM IF HER SBP <90 SO THAT HE CAN ADD MAINTANENCE FLUIDS.
--- NOTE | 2017-06-24 21:20 | NUR ---
PT APPEARS MORE COMFORTABLE, RASS: -1, TITRATED FENTANYL TO 1.75 MCG/KG/HR.
--- NOTE | 2017-06-24 22:00 | NUR ---
RASS: -1. REPOSITIONED PT SO THAT BILATERAL HIPS ARE FLOATED ON PILLOWS. I PROVIDED SUCTIONING WITH R.T. PRESENT IN ROOM. PT APPEARS MORE RESTLESS WITH THIS ACTIVITY, TITRATED FENTANYL TO 2 MCG/KG/HR. RESTRAINTS CHECKED. WILL CONTINUE TO MONITOR.
--- NOTE | 2017-06-24 23:00 | NUR ---
RASS: -2. FEEDING TUBE FLUSHED WITH 50ML TAP WATER AND THEN TUBE FEED INFUSION RATE INCREASED TO 50 ML/HR. RESTRAINTS CHECKED. VENT SETTINGS UNCHANGED.
--- NOTE | 2017-06-24 23:24 | NUR ---
SPOKE WITH DR. RACHEL IN REGARDS TO PT'S DECREASING UO. INSTRUCTED TO CONTINUE TO MONITOR FOR NOW. NO NEW ORDERS RECEIVED.
--- NOTE | 2017-06-25 00:15 | NUR ---
RASS: -2, FENTANYL DRIP CONTINUES AT 2 MCG/KG/HR. ASSESSMENT COMPLETED. NO CHANGES FROM PREVIUOS ASSESSMENT. RESTRAINTS REMOVED, ROM PROVIDED, RESTRAINTS REPLACED. REPOSITIONED PT ONTO LEFT SIDE. ELMORE DRAINING FREELY, UO SLIGHTLY INCREASED THIS HOUR. CENTRAL LINE HAS 1 LUMEN INFUSING, THE OTHER 2 HAVE GOOD BLOOD RETURN AND WERE FLUSHED WITH SALINE AND HEPARIN LOCKED. DRESSING C/D/I. R.T. IN TO PROVIDE SUCTIONING AND TRACH CARE. NON-ADHERANT PAD REMOVED FROM AROUND TRACH SITE. LEAVING IT OFF FOR NOW SO THAT SKIN HAS TIME TO DRY. VENT SETTINGS UNCHANGED. WILL CONTINUE TO MONITOR.
--- NOTE | 2017-06-25 01:00 | NUR ---
RASS: -2. RESTRAINTS CHECKED. VENT SETTINGS UNCHANGED. UO: 20ML THIS HOUR, WILL CONTINUE TO MONITOR. ELMORE TEMP PROBE: 100.5, TEMPORAL TEMP: 98.3
--- NOTE | 2017-06-25 02:00 | NUR ---
RASS: -1, PT VISIBLY UNCOMFORTABLE, TITRATED FENTANYL TO 2.25 MCG/KG/HR. SUCTIONING DONE BY R.T. REPOSITIONED PT ONTO RIGHT SIDE. RESTRAINTS RELEASED, ROM DONE, RESTRAINTS REPLACED. PT'S FEET FEEL COLD, SOCKS PLACED, HEEL PROTECTORS IN PLACE. WILL CONTINUE TO MONITOR.
--- NOTE | 2017-06-25 02:51 | NUR ---
R.T. IN TO ADMINISTER NEB TREATMENT.
--- NOTE | 2017-06-25 03:00 | NUR ---
RASS: -2, TITRATED FENTANYL TO 2 MCG/KG/HR. RESTRAINTS CHECKED. FEEDING TUBE FLUSHED WITH 50ML TAP WATER. TUBE FEED RATE INCREASED TO 75ML/HR.
--- NOTE | 2017-06-25 04:00 | NUR ---
RASS: -2, TITRATED FENTANYL TO 1.75 MCG/KG/HR. ORAL CARE PROVIDED. REPOSITIONED PT TO BE SUPINE, HOB REMAINS AT 30 DEGREES. RESTRAINTS REMOVED FOR ROM THEN REPLACED. ASSESSMENT COMPLETED. LUNGS SOUND MORE COARSE AT THIS TIME, OTHERWISE NO CHANGES FROM PREVIOUS ASSESSMENT.
--- NOTE | 2017-06-25 04:45 | NUR ---
R.T. IN TO PROVIDE SUCTIONING AND TO REPLACE NON-ADHERENT PAD UNDER TRACH COLLAR. PT NODDED HEAD "YES" WHEN ASKED IF SHE WAS HAVING PAIN, TITRATED FENTANYL GTT TO 2 MCG/KG/HR. WILL CONTINUE TO MONITOR.
--- NOTE | 2017-06-25 05:00 | NUR ---
RASS: -2, TITRATED FENTANYL TO 1.75 MCG/KG/HR. RESTRAINTS CHECKED. VENT SETTINGS UNCHANGED.
--- NOTE | 2017-06-25 06:00 | NUR ---
RASS: -2. REPOSITIONED PT SO THAT BILATERAL HIPS ARE FLOATED ON PILLOWS. FENTANYL GTT REMAINS AT 1.75 MCG/KG/HR. RESTRAINTS CHECKED. VENT SETTINGS UNCHANGED.
--- NOTE | 2017-06-25 06:19 | NUR ---
R.T. IN ROOM TO DRAW SAMPLE FOR ABG.
--- NOTE | 2017-06-25 06:40 | NUR ---
FEEDING TUBE FLUSHED WITH 50ML TAP WATER. INCREASED INFUSION RATE TO 100 ML/HR.
--- NOTE | 2017-06-25 07:00 | NUR ---
RASS:0. VENT: FIO2 INCREASED TO 40 BY R.T. RESTRAINTS CHECKED. REPORT GIVEN TO DAY SHIFT.
--- NOTE | 2017-06-25 07:34 | NUR ---
BEDSIDE REPORT REC'D FROM YONI DE LA GARZA. PATIENT RESTING AT THIS TIME WITH EYES OPEN. PT RESPONDS TO VERBAL COMMANDS. RESTRAINTS REMAIN IN PLACE BILATERALLY ON WRISTS. PT'S ABG SHOWED A p02 OF 69, AND THE FI02 INCREASED TO 40% PER RT AROUND 0725. PT NOW RECEIVING NEB. ELMORE REMAINS INTACT DRAINING YELLOW URINE. HEART RATE IN THE 60-80s AFIB. VENT SETTINGS ARE CMV 16, PEEP 5, VT 450. PT RECEIVING JEVITY AT 100 ML/HR INTO A LEFT NARE DOBBHOFF FEEDING TUBE. SP02 CURRENTLY 99% AND PT TOLERATING VENTILATOR. RR CURRENTLY 16. PT DOES NOT HAVE IVF CONTINUOUSLY RUNNING, JUST WHEN RECEIVING IV ANTIBIOTICS. WILL PERFORM SEDATION VACATION AGAIN TODAY. NEW FENTANYL GTT HUNG AT THIS TIME.
--- NOTE | 2017-06-25 08:17 | NUR ---
PATIENT'S DAUGHTER IN ROOM AT THIS TIME AND GIVEN UPDATE ON PATIENT'S CURRENT CONDITION AND STATUS. PT AWAKE, CURRENTLY AT A 0 RASS SCORE, BUT IS CALM. PT ANSWERS QUESTIONS WITH NODS OF HER HEAD AND FOLLOWS SIMPLE COMMANDS, BUT IS SOMEWHAT DELAYED IN HER RESPONSES. ASSESSMENT COMPLETE.
--- NOTE | 2017-06-25 08:38 | NUR ---
FENTANYL GTT TURNED DOWN TO 1.25 MCG/KG/HR AT THIS TIME. PT CONTINUES TO REST, WITH EYES OPEN MOSTLY. PT'S DAUGHTERS IN ROOM. AM MEDS GIVEN. CONTINUE TO MONITOR.
--- NOTE | 2017-06-25 09:07 | NUR ---
DR. RACHEL IN ROOM AT THIS TIME ASSESSING PATIENT. FENTANYL TURNED DOWN TO 1 MCG/KG/HR.
--- NOTE | 2017-06-25 10:19 | NUR ---
PATIENT IS S/P TRACHEOSTOMY ON 06/22/17. STILL HAVING RESPIRATORY PROBLEMS. TPN D/C'D YESTERDAY. NGT FEEDINGS STARTED YESTERDAY EVENING. JEVITY 1.5 FORMULA BEING USED. RATE IS 100 ML/HR WHICH IS PROVIDING 3600 CALORIES AND 153 GRAMS PROTEIN WHICH IS A BIT TOO MUCH FOR PATIENT. HER NEEDS ARE ESTIMATED AT [phone] CALORIES (USING HER ADMIT WEIGHT OF 68.24 KG x 30-36 CALORIES) AND 86-120 GM PROTEIN PER DAY. DR. GOMEZ CAME IN AND WE DISCUSSED DECREASING THE RATE TO 75 ML/HR WHICH WILL PROVIDE 2700 CALORIES (39.5 CALORIES/KG) AND 115 GM PROTEIN (1.68 GM/KG). CONTINUE WATER FLUSHES PER DR. GOMEZ WHICH IS 50 ML EVERY 8 HOURS. POC GLUCOSE 151 THIS AM. PHOS AND MG+ ARE WNL.
--- NOTE | 2017-06-25 10:32 | NUR ---
FENTANYL GTT ON STANDBY AT THIS TIME. PT HAD HER BED BATH AND LINEN CHANGED AND TOLERATED WELL. PT'S AT BEDSIDE NOW. PATIENT TRYING TO MOUTH WORDS TO RN BUT UNABLE TO UNDERSTAND HER. RASS IS CURRENTLY AT A 0. PT TOLERATING ALL OF THIS FAIRLY WELL. DR. GOMEZ IN TO SEE PATIENT AROUND 1000. CONTINUE TO MONITOR CLOSELY. WEANING TRIAL ON CPAP TO START SOON PER RT. PT GIVEN LASIX AND MAGNESIUM WELL AT THIS TIME.
--- NOTE | 2017-06-25 11:00 | NUR ---
SPOKE WITH FAMILY IN ROOM. PRESENT ARE TWO DAUGHTERS AND PATIENTS . THEY STATE DR GOMEZ THINKS PATIENT IS DOING MUCH BETTER. WE DISCUSSED USUAL WEANING WORK, AND THAT SHE WILL BE QUITE WEAK DUE TO EXTENDED ILLNESS. DISCUSSED THAT SHE MAY NEED TO GO TO A [facility] FOR FURTHER CARE AT SOME POINT. THEY ASKED WHERE THESE ARE, WE DISCUSSED CLOSEST ARE [facility] OR [facility]. WE ALSO DISCUSSED THAT IF SHE DOESN'T DO THAT, SHE WILL AT LEAST NEED TO STAY IN A LONG TERM/REHAB CENTER IN ORDER TO GET STRONG ENOUGH TO BE SAFELY DISCHARGED TO HOME WITH HELP. THEY SEEM TO UNDERSTAND THIS. I DID SEE DR GOMEZ IN [place], DISCUSSED POSSIBLE LTAC FACILITY FOR TRACH AND REHAB NEEDS. HE STATED THAT WE WILL TAKE THIS ONE DAY AT A TIME FOR NOW.
--- NOTE | 2017-06-25 11:19 | OR ---
[facility] [address], [place] [address] Signed DATE OF OPERATION: 06/24/2017 SURGEON: Shukri Gomez MD PREOPERATIVE DIAGNOSIS: Recent fever, central line in place several days. POSTOPERATIVE DIAGNOSIS: Recent fever, central line in place several days. PROCEDURE: Left subclavian central venous catheter replacement. ANESTHESIA: 1% lidocaine. INDICATION: This is an 86-year-old white woman in the intensive care unit with critical illness, having a left subclavian triple-lumen catheter having been placed. She did have a fever last night and a urinalysis was performed, which was normal. An arterial blood pressure catheter was removed and a change of her central venous catheter, culturing of the tip is indicated. Her family understands the risks of bleeding, infection, and so forth and wished to proceed. FINDINGS: The catheter was placed without problem. An imwg-kdn-ghhd technique was used. Good return of blood was noted. A postprocedure chest x-ray is pending. DESCRIPTION OF PROCEDURE: In the semi-recumbent position, the dressing over the central line was removed with all the care and sutures removed. The area was prepared liberally with Betadine solution and draped sterilely. A 1% lidocaine was injected near the catheter exit site. With sterile technique using glove, gown, mask, etc., per hospital protocol, the catheter was secured and transected and the large lumen (distal lumen) threaded with a flexible J-wire from the Arrow blue tip triple-lumen catheter kit. The catheter was removed over the wire. The wire emanating from the skin without problem. There was no ectopy. The tip was sterilely divided and placed in a sterile cup anticipating culture. The previous inspected Arrow blue tip triple-lumen catheter was passed over the wire and the wire removed from the distal port. Electronically Signed By: SHUKRI GOMEZ MD 06/25/17 1119 PATIENT NAME: SAEED OBRIEN OPERATIVE REPORT DATE OF : 31 PHYSICIAN: SHUKRI GOMEZ MD REPORT #: [id number] REPORT IS CONFIDENTIAL AND NOT TO BE RELEASED WITHOUT AUTHORIZATION [facility] [address], [place] [address] Signed Aspiration showed good dark nonpulsatile blood. All catheter sites have been flushed, but were flushed once again. The catheter was withdrawn to its previous position. A white collar device applied and secured to the skin with the enclosed silk suture. An anti-infective disk applied to the site as well. Additional securing of the catheter to the left pectoralis area was undertaken. A SorbaView dressing was applied and postprocedure chest x-ray was ordered. There was minimal blood loss. No complications. MD STANLEY Irwin/MODL /[id number] cc: MD Alejandro Porter MD Electronically Signed By: SHUKRI GOMEZ MD 06/25/17 1119 PATIENT NAME: SAEED OBRIEN OPERATIVE REPORT DATE OF : 31 PHYSICIAN: SHUKRI GOMEZ MD REPORT #: [id number] REPORT IS CONFIDENTIAL AND NOT TO BE RELEASED WITHOUT AUTHORIZATION
--- NOTE | 2017-06-25 11:19 | OR ---
[facility] [address] [place] [address] Signed DATE OF OPERATION: 06/24/2017 SURGEON: Shukri Gomez MD PREOPERATIVE DIAGNOSIS: Ongoing total parenteral nutrition; need for enteral nutrition. POSTOPERATIVE DIAGNOSIS: Ongoing total parenteral nutrition; need for enteral nutrition. PROCEDURE: Placement of left nostril Flexiflo feeding tube (doctor required). SURGEON: Shukri Gomez MD ANESTHESIA: IV sedation. DESCRIPTION OF PROCEDURE: In semi-recumbent position, a Flexiflo feeding catheter was placed in a cup of water as usual allowing for lubrication of the tip. The patient was on the ventilator through her tracheostomy site. The catheter was passed into the hypopharynx, but exited the mouth. It was withdrawn and the patient's neck put into a flexion position and allowed for passage of the catheter extensibly to the stomach. This was temporarily secured. A postprocedure x-ray was anticipated. MD STANLEY Irwin/SHAHRAML /[id number] Electronically Signed By: SHUKRI GOMEZ MD 06/25/17 1119 PATIENT NAME: SAEED OBRIEN OPERATIVE REPORT DATE OF : 32 PHYSICIAN: SHUKRI GOMEZ MD REPORT #: [id number] REPORT IS CONFIDENTIAL AND NOT TO BE RELEASED WITHOUT AUTHORIZATION [facility] [address] [facility] [place] [address] Signed Electronically Signed By: SHUKRI GOMEZ MD 06/25/17 1119 PATIENT NAME: MICAHSAEED RYLEE OPERATIVE REPORT DATE OF : 31 PHYSICIAN: SHUKRI GOMEZ MD REPORT #: [id number] REPORT IS CONFIDENTIAL AND NOT TO BE RELEASED WITHOUT AUTHORIZATION
--- NOTE | 2017-06-25 11:50 | NUR ---
PATIENT REMAINS OFF SEDATION AND ON CPAP TRIAL AT THIS TIME. PATIENT HAS BEEN ON CPAP TRIAL SINCE 1041. PT'S AND GRANDDAUGHTER ARE AT BEDSIDE AT THIS TIME. PT HAS BEEN TRYING TO STILL MOUTH SOME WORDS TO USE, BUT UNABLE TO COMPLETELY UNDERSTAND PATIENT, HOWEVER SHE DID MOUTH VERY CLEARLY, "I WANT TO GO HOME." PATIENT RE-ORIENTED TO ALL EVENTS OF HOSPITALIZATION BEST POSSIBLE. TUBE FEEDS CONTINUE AT 75 ML/HR INTO THE DOBBHOFF LEFT NARE FEEDING TUBE. PATIENT SEEMS TO BE TOLERATING THIS WELL. PT HAS HAD AN EXCELLENT URINE OUTPUT SINCE BEING GIVEN THE 40 MG IV LASIX. CONTINUE TO MONITOR CLOSELY.
--- NOTE | 2017-06-25 12:27 | NUR ---
FEEDING TUBE FLUSHED WITH 25 ML TAP WATER. DURING FLUSHING, PATIENT WAS SITTING UPRIGHT IN BED AND FULLY ALERT. PATIENT NOTICED THAT SOMETHING WAS BEING FLUSHED INTO HER STOMACH. PT NOTED TO HAVE WHAT LOOKED TO BE A BURP. FLUSH WAS PUSHED SLOWLY, AND AT A CERTAIN POINT, PT PUT HER HAND UP AND SIGNALED TO STOP. PT RECEIVED 25 ML.
--- NOTE | 2017-06-25 12:28 | NUR ---
CHATA CALLS RN INTO ROOM AND STATES "PATIENT SAYS SHE IS CHOKING." PATIENT WORDING "I'M CHOKING" TO THIS RN. PATIENT REMINDED TO TRY AND STAY CALM BEST SHE CAN AND NOT TO TRY AND TALK A LOT SINCE THIS IS MAKING HER FEEL MORE AGITATED. PATIENT THEN ASKED, "ARE YOU READY FOR A BREAK FROM THE CPAP AND WANT TO RELAX AT THIS TIME?" PATIENT AGREES AND NODS HEAD YES. PATIENT HAS TOLERATED THE CPAP FOR 1 HR AND 45 MINUTES. RT CALLED AND NOTIFIED THAT PATIENT READY TO END CPAP TRIAL AT THIS TIME. CONTINUE TO MONITOR.
--- NOTE | 2017-06-25 13:02 | NUR ---
PATIENT NOTED TO BECOME BRADYCARDIC AT 1242 IN THE 30s. PATIENT THEN NOTED TO BE RETCHING AND ABOUT TO VOMIT. PT THEN DID VOMIT TUBE FEEDING MATERIAL. PATIENT WAS IMMEDIATLEY SUCTIONED. PT DID NOT EXPERIENCE ANY DESATURATION DURING THIS, BUT HER BRADYCARDIA PERSISTED FOR APPROX 10-[address] RACHEL IN UNIT AT THIS TIME AND ENTERS ROOM TO CHECK ON PATIENT. TUBE FEEDINGS IMMEDIATELY TURNED OFF. ZOFRAN 4 MG IV GIVEN AND NEW ORDER REC'D FOR REGLAN [address] GOMEZ CALLED AND UPDATED ON EVENTS. DR. GOMEZ REQUESTING THAT PATIENT BE ON LITTLE POSSIBLE AMOUNTS OF IV SEDATION. PATIENT IS BACK ON VENT SETTINGS AT THIS TIME OF CMV 14, VT 450, FI02 40%, AND PEEP OF 5. WRIST RESTRAINTS REMAIN INTACT BILATERALLY. PT'S REMAINS AT BEDSIDE. PT'S MOUTH AND TONGUE CLEANED FOR HER AFTER HER EMESIS. SP02 CURRENTLY 97%. FENTANYL GTT INFUSING AT 0.5 MCG/KG/HR.
--- NOTE | 2017-06-25 13:20 | NUR ---
PT HAS TRACH IN PLACE-ALL OF FAMILY SEEMS TO BE A LITTLE MORE AT EASE NOW. THEY ARE MORE COMFORTABLE BECAUSE PT APPEARS TO BE. WILL FOLLOW NEEDED
--- NOTE | 2017-06-25 14:35 | NUR ---
ABG DRAWN PER RT. PT REMAINS AWAKE, WITH A RASS OF 0. PT'S DAUGHTER AT BEDSIDE. PT ON 0.5 MCG/KG/HR OF FENTANYL AT THIS TIME. CONTINUE TO MONITOR.
--- NOTE | 2017-06-25 15:06 | NUR ---
PATIENT RESTING WITH EYES CLOSED AT THIS TIME. PATIENT'S AND DAUGHTER IN ROOM. RASS IS CURRENTLY A -1 BUT PATIENT APPEARS COMFORTABLE AND ABLE TO REST. FENTANYL CONTINUES AT 0.5 MCG/KG/HR.
--- NOTE | 2017-06-25 17:11 | NUR ---
PATIENT NOTED TO HAVE A SMALL QUARTER SIZE OF BROWN SOFT LIQUID BM. PATIENT TURNED TO RIGHT SIDE. TUBE FEEDS RESTARTED AT 25 ML/HR AT THIS TIME. PATIENT HAS VERY ACTIVE BOWEL TONES. PT DOES SEEM TENDER ON HER ABDOMEN UPON PALPATION. PT'S TWO DAUGHTERS REMAIN IN ROOM, BUT HAS GONE HOME FOR THE NIGHT. CURRENTLY, FENTANYL GTT IS INFUSING AT 0.25 MCG/KG/HR AND PATIENT TOLERATING THIS AND MAINTAINING HER RASS GOAL OF 0. RASS GOAL FOR NIGHT TIME IS -2. CONTINUE TO MONITOR.
--- NOTE | 2017-06-25 18:00 | NUR ---
RECIVED REPORT FROM DAY SHIFT RN. PT RESTING IN BED. ALL QUESTIONS ANSWERED. PT HAS FAMILY AT BEDSIDE AT THIS TIME. WILL CONTINUE TO CLOSELY MONITOR.
--- NOTE | 2017-06-25 19:00 | NUR ---
MD IN TO SEE PATIENT. PATIENT IS RESTING IN BED AT THIS TIME. PT SEEMS ENERGETIC AND TRYING TO CONVERSE WITH THE MD. PER MD PT CAN TRY SIPING WATER FOR COMFORT. WILL CLOSELY MONITOR.
--- NOTE | 2017-06-25 19:20 | NUR ---
UPDATED MD THAT PT URINE HAS BEEN SLIGHTLY LOWER THE LAST SEVERAL HOURS. WILL CONTINUE TO CLOSELY MONITOR.
--- NOTE | 2017-06-25 21:00 | NUR ---
PT ASSESSMETN COMPLETED. PER MD STARTED WITH WATER SPONGES AND RT AT BEDSIDE DURING WATER TRIAL. PT WAS ABLE TO SUCK WATER OFF SPONGE AND SWALLOW WATER WITH NO ISSUES. PT DID THIS SEVERAL TIMES. PT IS SLOW TO SWALLOW. WILL CONTINUE TO SLOSELY MONITOR. PT REFUSED HEPARIN INJ. COMMUNICATED TO PT THE IMPORTANCE OF THIS MEDICATION AND WHAT IT IS USED FOR. PT STILL REFUSED. PT TRYING TO COMMUNICATE BUT HAVING DIFFICULTY. PT TRIED TO WRITE BUT WAS UNABLE. USED COMMUNICATION BOARD FOR PT TO POINT AT LETTER. PT TOLERATED WELL. PT RESTRAINTS CHECK. PT TURNED WITH PILLOW SUPPORT. WILL CONTINUE TO CLOSELY MONITOR.
--- NOTE | 2017-06-25 22:00 | NUR ---
PT REPOSITIONED WITH PILLOW SUPPORT. PT TOLERATED WELL. WILL CONTINUE TO CLOSELY MONITOR.
--- NOTE | 2017-06-25 23:04 | NUR ---
MD CALLED FOR UPDATE. UPDATED MD REGURDING PT HR REMAINING MOSTLY IN THE 50'S, BP IS 80'S SYSTOLIC, AND URINE OUTPUT HAS IMPROVED SOME INTO THE MID 20'S-30'S. WILL GIVE PT ALBUMIN PER MD AND CONTINUE TO MONITOR.
--- NOTE | 2017-06-26 00:09 | NUR ---
REPOSITIONED PT WITH PILLOW SUPPORT. PT TOLERATED WELL. PT RESTING WELL AT THIS TIME. PT OPENS EYES TO STAF WHEN SAYING HER NAME. PT RASS SCORE IS -1. PUMPS CLEARED. PT URINE OUPUT REMAINS ABOUT THE SAME. RESTRAINTS CHECKED. OFFERED PT SIP WATER. PT REFUSED. PT TUBE FEED UP TO 50ML/HR AT THIS TIME. WILL CONTINUE TO CLOSELY MONITOR.
--- NOTE | 2017-06-26 00:45 | NUR ---
pt turned with two person assist and respiratory assisting ventilator. pt checked for bm. no bm present, but pt is passing gas. will continue to closely monitor. restraints retied and checked and are in a good position.
--- NOTE | 2017-06-26 10:27 | NUR ---
AWAKE AND ALERT. ON VENT AT 40 % FIO2, TV-450, CMV-14, PEEP-5, PIP-27. ALL IVF OFF. ALL ANTIBOTICS DC'D. FENTANYL GTT DC'D EARLIER AT AROUND 0800.
--- NOTE | 2017-06-26 10:31 | NUR ---
NAUSEATED. HR DOWN WITH APPROX 5 SEC PAUSE. TUBE FEEDING TO OFF. DR RACHEL AWARE. MESSAGE LEFT WITH DR. GOMEZ IN OR. WILL LEAVE TUBE FEED OFF UNTIL DR. GOMEZ HEARD FROM.
--- NOTE | 2017-06-26 10:49 | NUR ---
SITTING AT PATIENT'S BEDSIDE CHATTING WITH PATIENT AND FAMILY MEMBER. PUT TV ON MUTE FOR HER. OTHERWISE PATIENT IS DOING WELL.
--- NOTE | 2017-06-26 12:05 | NUR ---
ASSESSMENT DONE. DAUGHTER IS AT BEDSIDE. FEEDING TUBE ADVANCED PER DR. GOMEZ ORDERS. PATIENT TOLERATED FAIR. CHEST XRAY TO BE DONE. PATIENT IS VERY ALERT. HAS BEEN OFF FENTANYL DRIP SINCE 0800 THIS AM. TUBE FEED NOW INFUSING AT 75 ML HR. ROUTINE FREE WATER 100 ML GIVEN VIA FEEDING TUBE. DICKSON HAS BEEN USING ORAL SUCTION WHEN RN IN ROOM. EXPLAINED WHY WRIST RESTAINTS USED. PATIENT ROLLING EYES. SCDS ON HOB ELEVATED. IS PASSING FLATUS. HAD SMALL BROWN VERY SOFT STOOL.
--- NOTE | 2017-06-26 13:31 | NUR ---
PATIENT ROOM STOCKED
--- NOTE | 2017-06-26 13:43 | NUR ---
ALL 3 PORTS ON CENTRAL LINE HAVE BRISK BLOOD RETURN AND FLUSHED WITH 10ML NS FOLLOWED BY 5ML OF HEPARIN 10UNITS/ML. FLUSHES EASILY. PATIENT AWAKE AND INTERACTIVE, FRIEND IN VISITING WITH FAMILY MEMBER AND PATIENT.
--- NOTE | 2017-06-26 14:38 | NUR ---
FAMILY SEEMS TO BE FEELING BETER TODAY, PT IS AWARE AND ABLE TO COMMUNICATE SOME. SHE GRABBED MY HAND, SMILED AND ASKED ME TO GET HER SOME HELP. I HAD RN CHEIKH AND OTHER STAFF COME AND HELP. DAUGHTER STARR WITH HER. HAD PRAYER WITH PT, WILL FOLLOW NEEDED
--- NOTE | 2017-06-26 15:00 | NUR ---
TUBE FEEDING (JEVITY 1.5 CONTINUOUS FEED VIA NGT) WAS TURNED OFF DURING THE NIGHT DUE TO EMESIS. IT WAS TURNED BACK ON AT A LOWER RATE - PATIENT HAD ANOTHER EMESIS (~35 ML) THIS MORNING SO FEEDING WAS SHUT OFF AGAIN. NGT ADVANCED SLIGHTLY, CXR DONE AND FEEDING RESTARTED. IT WAS RUNNING AT 75 ML/HR AT 1 PM THIS AFTERNOON. PATIENT HAD 3 BM'S TODAY. IVF AND ANTIBIOTICS ALL D/C'D TODAY. NEW ORDER OF 100 ML WATER FLUSH EVERY 4 HOURS NOW. TOTAL FLUIDS WITH FLUSHES AND FORMULA = 1968 ML/DAY WHICH IS CLOSE TO RECOMMENDED 2000 ML/DAY. NO CHANGES TO FEEDING RECOMMENDED AT THIS TIME. WILL CONTINUE TO MONITOR TF TOLERANCE WITH EMESIS, BM'S, AND LABS.
--- NOTE | 2017-06-26 15:28 | NUR ---
tidied up patient room, assisted patient in communicating with .
--- NOTE | 2017-06-26 15:34 | NUR ---
RESTLESS AT TIMES. ATEMPING TO USE WRITING BOARD FOR COMMUNICATION. FRUSTRATED REGARDING STAFF NOT ABLE TO UNDERSTAND.
--- NOTE | 2017-06-26 16:24 | NUR ---
ASSESSMENT UNCHANGED. DR. CARLSON HERE TO SEE PATIENT. RT CLEANSED INNER CANULA OF TRACH EARLIER. TOLERATED WELL. PATIENT HAS BEEN AWAKE ALERT ALL DAY. REMAINS IN WRIST RESTRAINTS. ROM HAS BEEN DONE FREQUENTLY. HAS HAD SEVERAL SMALL SMEARS OF STOO. ABD IS SOMEWHAT FIRM TO TOUCH. DENIES NAUSEA AT THIS TIME.
--- NOTE | 2017-06-26 18:00 | NUR ---
RESTFUL, IS AT BEDSIDE. REMAINS ON SAME VENT SETTINGS.
--- NOTE | 2017-06-26 19:35 | NUR ---
PT SHIFT REPORT RECIVED. PT RESTING IN BED. PT VENT SETTINGS ARE CMV 14, FIO2 40%, VT 450, PEEP 5, TRACH SIZE 6. EMERGENCY TRACH AT THE HEAD OF BED SIZE 4. PT REQUESTING WATER. PT HAS TOLERATED WELL. WILL CONTINUE TO MONITOR.
--- NOTE | 2017-06-26 20:00 | NUR ---
pt resting in bed at this time. pt is very bright eyed this evening. pt is conversative and smiling. talked with pt regurding plan of care for the night. pt is agreeable to plan. pt denies any pain at this time. will continue to monitor.
--- NOTE | 2017-06-26 20:30 | NUR ---
PT SHIFT ASSESSMENT COMPELTED. PT LUNGS COARSE. PT RESPIRATORY EFFORT IS REGULAR. PT STATES SHE FEELS LIKE SHE IS BREATHING WELL AT THIS TIME. WILL CONTINUE TO CLOSELY MONITOR. BOWEL TONES ACTIVE SLIGHTLY DISTENDED. PT PASSING FLATUS AND HAVING SMEARS. EDEMA PRESENT THROUGHOUT. EDEMA NOTICABLE IN BILATERAL HIPS/THIGHS AND BILATERAL UPPER AND LOWER EXTREMITS. WILL CONTINUE TO MONITOR.
--- NOTE | 2017-06-26 22:00 | NUR ---
PT TURNED WITH 2 RNS AND 1 RT TO MANAGE VENTILATOR. PT TURNED AND ASSISTED WITH TURNING. PT CLEANED PLACED NEW DEPENDS AND CHUCKS PAD. BOOSTED PT UP IN BED AND REPOSITIONED WITH PILLOW SUPPORT. PT TOLERATED WELL. GAVE PT WATER PER REQUEST. WILL CONTINUE TO CLOSELY MONITOR.
--- NOTE | 2017-06-26 23:45 | NUR ---
PT COUGHING AND NODED HEAD TO FEELING LIKE SHE NEEDED SUCTIONED. SUCTIONED TWICE WITH NO IMPROVEMENT. PT SPO2 98%, RR 18. CALLED RT FOR ASSISTANCE. PT CONTINUING TO FEEL LIKE SHE NEEDED SUCTIONED. 2 RNS IN ROOM AND RT. PT VASAL VAGULED TO 20 HR AFTER SUCTIONING AND BEGAN GAGING AND DRY HIEVING. NO EMISIS PRESENT. PT WAS ABLE TO RELAX AND HR CAME UP AFTER 30 SECONDS. PT HAS DONE THIS SEVERAL TIMES ON DAY SHIFT AND PRIOR DAYS. PT IS NOW RESTING WELL WITH HOB AT 40 DEGREES PER REQUEST TO SIT UP FOR AWHILE. WILL CONTINUE TO CLOSELY MONITOR.
--- NOTE | 2017-06-27 00:34 | NUR ---
PT RESTING WELL AT THIS TIME. WILL CONTINUE TO CLOSELY MONITOR. PT HR 50-70'S WHILE RESTING. URINE OUTPUT HAS BEEN SUFFICIENT THIS EVENING. PT APPEARS COMFORTABLE. WILL CONTINUE TO CLOSELY MONITOR PT.
--- NOTE | 2017-06-27 01:30 | NUR ---
PT COUGING AND NEEDS SUCTIONED. CALLED RT. ENTERED ROOM TO SUCTION AND PATIENT VAGLED DOWN WITH HR IN 20'S BEFORE SUCTIONING. PT SUCTIONED X3. PT IMPROVED AND NO MORE COUGING. PT HR BACK TO 50-70'S. PT GAGGED BUT NO EMISIS PRESENT. PT NOW RELAXING. CALLED MD TO UPDATE THAT PT TEMP HAS BEEN INCREASING THROUGHOUT THE NIGHT. NO PARAMETERS PRESENT FOR CORE TEMP TO CALL WITH VALUES. ELMORE TEMP PROBE IS 101.1 AT THIS TIME. PER MD WILL TRY TYLENOL FIRST. PT HAVING LOOSE CONTINUOUS STOOLS WILL CRUSH TYLENOL AND GIVE VIA FEEDING TUBE.
--- NOTE | 2017-06-27 02:00 | NUR ---
PT HAD LOOSE BM. PT TURNED WITH 3 PERSON ASSIST, CLEANED, PLACED NEW DEPENDS, AND CHUCKS PAD. BOOSTED PT IN BED AND REPLACED RESTRAINTS. PT TOELRATED WELL. PT GIVEN ICE CHIP FOR COMFORT. WILL CONTINUE TO CLOSELY MONITOR.
--- NOTE | 2017-06-27 02:17 | NUR ---
GIVEN 650MG TYLENOL CRUSHED PER FEEDING TUBE FOR TEMP 101.
--- NOTE | 2017-06-27 03:00 | NUR ---
PT COUGHING ENTERED ROOM AND ASKED PT IF SHE NEEDED SUCTIONED PT NODED YES. AT THAT TIME PT VAGALED AGAIN. PT HAS NOT BEEN DIAPHORETIC AND DENIES DIZZINESS DURING THESE EPISODES TONIGHT. ASKED OTHER RN TO CALL RT WHILE I PREOXEGENATED AND BEGAN SUCTIONING. THIS RN SUCTIONED TWO DIFFERENT TIMES WITH LITTLE RELIEF. RT IN TO ASSESS PT. RT SUCTIONED PT. PT STILL FELT LIKE THERE WAS SOMETHING THAT NEEDED SUCTIONED OUT. RT REMOVED INNER CANUAL AND REPLACED WITH CLEAN CANNULA. PT TOLERATED WELL. OLD CANNUAL WAS COATED WITH TENACIOUS SPUTUM. AFTER CHANGING CANNULA AND GIVING PT A SMALL BREAK RT SUCTIONED ONE MORE TIME AND WAS ABLE TO GET THE REMAINING SPUTUM OUT. PT MORE COMFORTABLE NOW AND DOES NOT FEEL LIKE THERE WAS ANYTHING LEFT THERE. PT NOW RESTING IN BED WITH VENILATOR SETTINGS UNCHANGED. WILL CONTINUE TO CLOSELY MONITOR.
--- NOTE | 2017-06-27 04:15 | NUR ---
PT RESTING IN BED AT THIS TIME. WILL ENCOURAGE SLEEP AT THIS TIME. WILL CONTINUE TO MONITOR.
--- NOTE | 2017-06-27 05:30 | NUR ---
PT HAVING COUGHING EPISODE WITH HR IN 30'S. RT HERE AND ENTERED ROOM TO SUCTION PATIENT. PT HAD APROX 30ML AMANDA EMESIS. ZOFRAN ADMINISTERED. PT BEDDING, GOWN, COLLAR CHANGED D/T EMESIS. PT TOLERATED WELL. PT DID ACTIVE RANGE OF MOTION WITH ARMS, ELBOWS, HANDS WHILE RESTRAINTS WERE UNDONE. PT LEGS MUCH WEAKER AND PT HAD MORE DIFFICULTY WITH MOVING LEGS. PT REPOSITIONED WITH PILLOW SUPPORT EVERY 2 HOURS. PT TOELRATED WELL. ARMS ELEVATED ON PILLOWS AT THIS TIME TO HELP WITH EDEMA. RESTRAINTS IN [place]. WILL COTINUE TO MONITOR.
--- NOTE | 2017-06-27 07:30 | NUR ---
REPORT RECIEVED. IS SLEEPING. NO DISTRESS NOTED. FEEDING TUBE PATENT AT 75 ML/HR.
--- NOTE | 2017-06-27 08:20 | NUR ---
RT HERE TO CLEAN AROUND TRACH, PLACED ON CPAP AT 40% PS OF 8. DAUGHTER IS AT BEDSIDE. PATIENT IS ALERT AND COOPERATIVE. TAKING SIPS OF WATER.
--- NOTE | 2017-06-27 09:20 | NUR ---
TRACH MIST COLLAR AT 40% APPLIED PER RT.
--- NOTE | 2017-06-27 09:41 | NUR ---
REMAINS ON TRACH MIST COLLAR. RR-21, O2 SAT-99, ETCO2-43. IS DIAPHORTIC.
--- NOTE | 2017-06-27 11:20 | NUR ---
AM CARES COMPLETE. TOLERATED WELL. REMAINS ALERT. HAS BEEN TAKING SIPS OF WATER AND FEW ICE CUBES W/O DIFFICULTY.
--- NOTE | 2017-06-27 13:30 | NUR ---
PHYSTHERAPY HERE TO WORK WITH PATIENT.
--- NOTE | 2017-06-27 14:12 | NUR ---
PT SEEMS TO BE COMFORTABLE. RT CLOSELY MONITORING ALONG WITH CCU RN ELSY. FAMILY ALWAYS CLOSE BY. HAD PRAYER WITH PT, AND SHE TRIED TO TELL ME SOMETHING BUT I COULDN'T TELL WHAT SHE WANTED. CHECKED WITH RN, SHE STRUGGLES TOO. GOD HELP THEM.
--- NOTE | 2017-06-27 14:30 | NUR ---
CONTINUE TO NAP. HAS HAS RESTFUL DAY.
--- NOTE | 2017-06-27 16:30 | NUR ---
CARE CONFERENCE ATTENDEES: DENISSE OBRIEN, , DAUGHTER STARR STAFF: DR CARLSON, MYSELF-CASE MANAGEMENT, [facility], ADÁN KAYE, AND ELSY Hernández RN. DISCUSSION: LED BY DR CARLSON EXPLAINED THAT PT IS IMPROVING JUST VERY SLOWLY AND THAT WE MAY BE COMING TO THE TIME WHEN THE PT IS READY TO GO TO AN LTAC. WE EXPLAINED WHAT THAT IS AND WHY THE NEED FOR IT. DR CARLSON SAID SHE COULD BE A MONTH OR MORE AT GETTING OFF THE BREATHING TUBE, AND GETTING STRONG ENOUGH TO BEGIN TO THINK OF GOING HOME. TALKED WITH THEM REGARDING THE LOCATIONS OF THE LTAC FACILITIES AND THEY WOULD LIKE IF SHE HAS TO TO GO TO THE ONE IN [place], OR THEY HAVE FAMILY DOWN THERE. TALKED WITH THEM ABOUT THE NEED OF HER NUTRITION ETC. FAMILY AT THIS TIME DENIED ANY FURTHER QUESTIONS. I WILL BE CHECKING WITH [facility] TO SEE IF BEDS AVAILABLE ETC.
--- NOTE | 2017-06-27 19:12 | NUR ---
SIPS OF WATER GIVEN. REPORT TO NEXT SHIFT.
--- NOTE | 2017-06-27 20:00 | NUR ---
ASSESSMENT COMPLETED. PT IS ALERT IS ABLE TO MOUTH WHAT SHE NEEDS SUCH "SIP OF WATER" OR "ICE CHIPS" PT DENIES PAIN. PT POSITIONED WITH PILLOWS UNDER HER LEFT SIDE. LUNGS SOUND SLIGHTLY COARSE IN THE UPPERS, VENT: CMV 14, FIO2 40, VT 450, PEEP 5. HR IRREGULAR. BOWEL TONES ACTIVE, ABDOMEN SLIGHTLY TIGHT FEELING, PT PASSING FLATUS, DENIES NAUSEA. INCISION TO ABDOMEN IS WELL APPROXIMATED, HEALING WELL. DEPENDENT GENERALIZED EDEMA PRESENT. SCD'S IN PLACE. CENTRAL LINE HAS GOOD BLOOD RETURN TO ALL 3 LUMENS, FLUSH WELL, HEPARIN LOCKED. NO REDNESS OR SWELLING NOTED TO SITE, DRESSING C/D/I. ORAL CARE PROVIDED AT THIS TIME. RESTRAINTS RELEASED AND ROM DONE WITH PT. RESTRAINTS REPLACED. FEEDING TUBE FLUSHED WITH 100ML WATER. PT TOLERATING SIPS OF WATER AND ICE CHIPS. WILL CONTINUE TO MONITOR.
--- NOTE | 2017-06-27 22:00 | NUR ---
REPOSITIONED PT TO BE SUPINE IN BED, HOB ELEVATED TO 30 DEGREES. RESTRAINTS CHECKED. VENT SETTINGS UNCHANGED. PT RESTING COMFORTABLY, DENIES FURTHER REQUESTS AT THIS TIME.
--- NOTE | 2017-06-28 | NUR ---
REPOSITIONED PT TO LEFT SIDE. PT PROVIDED WITH SIPS OF WATER PER REQUEST. RESTRAINTS CHECKED. FEEDING TUBE FLUSHED WITH 100 ML WATER. PT DENIES NEEDS, WILL CONTINUE TO MONITOR.
--- NOTE | 2017-06-28 02:00 | NUR ---
BOOSTED PT UP IN BED AND THEN REPOSITIONED SO THAT BILATERAL HIPS ARE FLOATED ON PILLOWS. PT MOUTHS "YES" WHEN I ASK IF SHE FEELS COMFORTABLE. RESTRAINTS RELEASED AND THEN REPLACED. VENT SETTINGS UNCHANGED. ICE CHIPS PROVIDED PER REQUEST. TUBE FEED CONTINUES AT 75ML/HR. PT HAS CALL LIGHT AND DENIES NEEDS. WILL CONTINUE TO MONITOR.
--- NOTE | 2017-06-28 03:16 | NUR ---
VENT ALARM COULD BE HEARD SO I WENT IN TO CHECK ON PT. PT BREATHING, DESPITE ALARM STATING "APNEA." ASKED PT IF SHE WAS HAVING DIFFICULTY BREATHING, WHICH SHE MOUTHED "YES." ATTEMPTED TO SUCTION, BUT HAD DIFFICULTY ADVANCING THE IN-LINE SUCTION. CALLED R.T. WHO WAS ABLE TO SUCTION THE PT AND REMOVE A LARGE MASS OF MUCUS. PT NODS "YES" WHEN ASKED IF SHE FEELS LIKE IT IS EASIER TO BREATHE NOW. ICE CHIPS PROVIDED PER REQUEST. WILL CONTINUE TO MONITOR.
--- NOTE | 2017-06-28 03:32 | NUR ---
650MG TYLENOL GIVEN FOR CORE TEMP: 101.3. R.T. IN ROOM AT THIS TIME TO CLEAN AND EXCHANGE INNER CANNULA OF TRACH. PT TOLERATED WELL. PT DENIES FURTHER NEEDS.
--- NOTE | 2017-06-28 04:23 | NUR ---
Maria TeresaTYariel CALLED AGAIN TO SUCTION PT, SHE APPEARS SHE NEEDS TO COUGH. PT APPEARS ANXIOUS, 1MG IV ATIVAN ADMINISTERED AND THEN LUMEN HEPARIN LOCKED. ASSESSMENT COMPLETED. PT DENIES PAIN AND NAUSEA. LUNGS SOUND COARSE, VENT SETTINGS UNCHANGED. HR IRREGULAR. BOWEL TONES ACTIVE, PT PASSING FLATUS. EDEMA REMAINS UNCHANGED. RESTRAINTS CHECKED. TUBE FEED CONTINUES AT 75 ML/HR. MIDLINE ABDOMINAL INCISION WELL-APPROXIMATED AND HEALING WELL. PT PROVIDED WITH ICE CHIPS PER REQUEST. DENIES FURTHER NEEDS AT THIS TIME.
--- NOTE | 2017-06-28 06:00 | NUR ---
PT SLEEPING, NO APPARENT DISTRESS. RR:17, RESPIRATIONS EVEN AND UNLABORED. RASS: -1. REMOVED PILLOW FROM UNDER LEFT HIP SO NOW PT IS SUPINE, HOB REMAINS AT 30 DEGREES. RESTAINTS CHECKED. VENT SETTING UNCHANGED. TUBE FEED CONTINUES AT 75 ML/HR. WILL CONTINUE TO MONITOR.
--- NOTE | 2017-06-28 08:00 | NUR ---
PT HAD LARGE BM THIS AM. PT CLEANED UP AND LINE CHANGE COMPLETED AT THIS TIME. RT PRESENT AND TRYED TO PLACE PT ON TACH CUFF, BUT UNABLE AT THIS TIME DUE TO THE ACTIVITY OF MOVING ABOUT IN BED WITH LINE CHANGE.
--- NOTE | 2017-06-28 09:24 | NUR ---
PT AWAKE AND CALM AT THIS TIME, RESTRAINTS REMOVED AT THIS TIME WHILE STAFF AND FAMILY AT THE BEDSIDE. PT UNDERSTANDS THAT THEY WILL GO BACK ON WHEN FAMILY IS NOT PRESENT AND WHEN SLEEPING.
--- NOTE | 2017-06-28 10:32 | NUR ---
PORTAL CXR COMPLETED PT TOLERATED WELL. FAMILY REMAINS AT THE BEDSIDE.
--- NOTE | 2017-06-28 10:50 | NUR ---
PT ALSEEP AT TIMES, SOFT RESTRAINTS INPLACE AT THIS TIME. A THE BEDSIDE.
--- NOTE | 2017-06-28 11:07 | NUR ---
PATIENT REMAINS IN ICU. FAMILY AT BEDSIDE. JEVITY 1.5 RUNNING CONTINUOUSLY AT 75 ML/HR (GOAL) VIA NASOGASTRIC TUBE. CONTINUES TO RECEIVE 100 ML WATER FLUSHES EVERY 4 HOURS. TOTAL FLUID PROVIDED DAILY: 600 ML WATER FROM FLUSHES, 1,368 ML FROM FORMULA = 1,968 ML. FESO4 ADDED TO MEDS TODAY, FOR TID. PATIENT IS HAVING BM'S. ASKED IF NURSING COULD PUT IN A PREALBUMIN ORDER FOR SUNDAY. LAST PREALBUMIN WAS FROM 06/18/17. NO CHANGES TO NUTRITION REGIMEN RECOMMENDED AT THIS TIME. CONTINUE CURRENT PLAN.
--- NOTE | 2017-06-28 13:00 | NUR ---
STAFF PRESENT TO COMPLETE SKIN ASSESSMENT. THEN WITH THE HELP OF RT AND THREE STAFF NURSES WE PLACED PT IN A GREEN LIFT SHEET AND CHANGED OUT HER BED TO A TOTAL CARE BED SO THAT PT CAN BE PLACED IN A SITTING POSITION. RT MANAGED AIRWAY FOR STAFF WHILE MOVING PT. ONCE THIS PROCESS WAS COMPLETED PT PLACED IN A SITTING POSITION, PT APPEARED TO GET SHORT OF BREATH WITH THIS PROCESS, BUT SPO2 DID NOT DECREASE AND RESP RATE DID NOT RISE.
--- NOTE | 2017-06-28 13:49 | NUR ---
TUBE FEEDING BAG CHANGED AT THIS TIME. PT APPEARS TO BE TOLERATING TUBE FEEDING WELL. PT HOB TO REMAIN GREATER THAN 30 DEGREES AT ALL TIMES. AND IF HOB NEEDS TO BE LOWER THAN FEEDING NEEDS TO BE PLACED ON HOLD. SO DURING BED EXCHANGED TUBE FEEDING WAS PLACED ON HOLD.
--- NOTE | 2017-06-28 13:51 | NUR ---
PT AND FAMILY REMAIN AT THE BEDSIDE WITH PT. PT IS SLEEPING INBETWEEN TALKING WITH FAMILY AND STAFF.
--- NOTE | 2017-06-28 14:03 | NUR ---
I & O'S COMPLETED AT THIS TIME. DR CARLSON INTO SEE PT AT THIS TIME.
--- NOTE | 2017-06-28 14:14 | NUR ---
GUIDED SEVERAL GUESTS TO PT'S RM, MET WITH DAUGHTER IRIS. CONNECTED WITH DENISSE. HE SELDOM LEAVES HER SIDE. WAITING FOR VISIT WITH DR GOMEZ TO BEGAN TO PLAN NEXT STEP FOR PT'S CARE. WILL FOLLOW NEEDED
--- NOTE | 2017-06-28 15:45 | NUR ---
DR GOMEZ INTO SEE PT THIS AFTERNOON. HE ALSO MEET WITH THE FAMILY AT THIS TIME. DR GOMEZ IS THE PRIMARY PHYSICIAN ON THIS CASE. PHYSICAL THERAPY INTO WORK WITH PT. DR GOMEZ TALK WITH RT ABOUT PT CARE ALSO.
--- NOTE | 2017-06-28 16:18 | NUR ---
PHONE CALL TO [facility]BBY REGARDING A TOTAL PROGRESSIVE BED TO HELP PT WITH THE ABILITY TO GO FROM A LYING TO SITTING TO STAND POSITION. ALSO MAYBE ONE THAT WILL HELP WITH RESP ISSUES. COMFERMATION NUMBER IS [phone]. THE SALES DEPARTMENT WILL CALL BACK WITH INFORMATION.
--- NOTE | 2017-06-28 17:07 | NUR ---
HAD DISCUSSION WITH DR GOMEZ ABOUT THE POSSIBILITY OF THIS PT GOING TO LTAC FOR CONT TRACH WEANING AND REHAB. HE STATED THAT HE THINKS SHE IS DOING WELL ENOUGH AT THIS TIME TO STAY HERE. IF SHE STOPS IMPROVING HE SAYS HE WILL CONSIDER THIS MOVE.
--- NOTE | 2017-06-28 17:27 | NUR ---
PT TO BEDPAN HAD A SMEAR OF BM AND IS PASSING GAS WELL. PT TAKEN OUT OF THE SITTING POSITION FOR THIS PROCESS. ALSO PT THE TURNED TO HER RIGHT SIDE AT THIS TIME. FAMILY REMAINS AT BEDSIDE, BOTH SOFT RESTRAINTS INPLACE.
--- NOTE | 2017-06-28 18:09 | NUR ---
PT APPEARS TO BE SLEEPING AT THIS TIME, FAMILY HAS LEFT AND RESTRAINTS REMAIN INPLACE.
--- NOTE | 2017-06-28 18:56 | NUR ---
PT RESTING QUITELY DENIES PAIN AT THIS TIME. TUBE FEEDING INFUSING WELL.
--- NOTE | 2017-06-28 19:30 | NUR ---
FINISHING GETTING REPORT FROM DAYSHIFT. PATIENT IS AWAKE AND RT IS IN WITH HER AT THIS TIME.
--- NOTE | 2017-06-28 20:30 | NUR ---
INITIAL ASSESSMENT FOR THE SHIFT DONE. RT IS HERE AND DOING TRACH CARE. PATIENT REPOSITIONED TO HER BACK FROM HER RIGHT SIDE. PATIENT IS ALERT AND ABLE TO COMMUNICATE LIMITEDLY OF COURSE.
--- NOTE | 2017-06-28 21:16 | NUR ---
CALLED DR. GOMEZ AROUND 2029 TO ASK IF THE SUTURES AROUND THE TRACH COULD BE REMOVED, TO ALLOW RT TO CLEAN PROPERLY UNDER THEM. RT RECOMMENDED THAT THEY BE REMOVED 5-7 DAYS POST TRACH PLACEMENT,AND TOMORROW WOULD BE THE 7TH DAY. SUTURES REMOVED WITHOUT DIFFICULTY. RT PERFORMED TRACH CARE AND NEW COLLAR PLACED TO ENSURE TRACH IS HELD IN PLACE. PATIENT ALERT, COOPERATIVE, NOT AGITATED OR ANXIOUS, AND KNOWS NOT TO PULL AT TRACH TUBES AND LINES.
--- NOTE | 2017-06-28 22:00 | NUR ---
PATIENT STILL RESTING QUIETLY IN THE BED. CAT NAPPING AT TIMES, BUT WATCHING TV ALSO. URINE OUTPUT HAS BEEN SUFFICEINT.
--- NOTE | 2017-06-29 | NUR ---
PATIENT REPOSITIONED TO HER LEFT SIDE. ORAL CARE DONE. PATIENT STILL TAKING SIPS OF WATER AND HAS LET US KNOW SHE IS NOT HAVING PAIN AT THIS TIME.
--- NOTE | 2017-06-29 02:00 | NUR ---
PATIENT RESTING QUIETLY EYES CLOSED, STILL STIRRING OCCASIONALLY. VS STABLE AT THIS TIME.
--- NOTE | 2017-06-29 03:04 | NUR ---
Patient knows she is in the hospital and wondering when she will get to leave. informed her that her lungs will have to be doing better before she is able to go home. Patient mouthed understanding and nodded.
--- NOTE | 2017-06-29 04:00 | NUR ---
PATIENT AWAKE. ROM EXERCISES DONE. RESTRAINTS RESECURED. 100MLS FREE WATER PER FEEDING TUBE GIVEN, WHILE 30 MINUTE HOLD PLACED ON TUBE FEEDING. CATH CARE COMPLETED. PATIENT HAD A DRINK OF WATER AND LET ME KNOW SHE IS HAVING NO PAIN.
--- NOTE | 2017-06-29 06:12 | NUR ---
PATIENT CONTINUES TO RESPOND APPROPRIATELY WHEN TALKED TO. RESTING QUIETLY IN BED. EXERCISING HER HANDS AND ARMS AT TIMES. STILL DENIES PAIN.
--- NOTE | 2017-06-29 07:45 | NUR ---
IS AWAKE AND ALERT. SITTING WITH HOB ELEVATED. TALKED WITH PATIENT ABOUT PLAN OF CARE.INDICATES UNERSTANDING.
--- NOTE | 2017-06-29 08:00 | NUR ---
CPAP-40% STARTED BY RT. PATIENT IS AWAKE AND ALERT. IS AWARE OF PLAN. HOB ELEVATED.
--- NOTE | 2017-06-29 08:15 | NUR ---
TRACH MIST COLLAR AT 40 FIO2 STARTED. ROUNTINE MEDS GIVEN. ALBUTEROL TREATMENT VIA TACH MASK GIVEN PER RT. DAUGHTER IS IN ROOM.
--- NOTE | 2017-06-29 08:46 | NUR ---
RT REMAINS IN ROOM. REMAINS ON TRACH MIST COLLAR. [id number] WITH INCREASED PVC ACTIVITY. IS DIAPHORTIC. [id number]. INCREASED WORK OF BREATHING.
--- NOTE | 2017-06-29 08:50 | NUR ---
PEEP-5, PS-10, ON CPAP. TRACH MIST OFF.
--- NOTE | 2017-06-29 09:15 | NUR ---
RETURN TO FULL SUPPORT ON VENT WITH SAME SETTINGS.
--- NOTE | 2017-06-29 10:00 | NUR ---
RESTRAINTS OFF AT THIS TIME.
--- NOTE | 2017-06-29 10:15 | NUR ---
TRANSFERRED TO [facility] BED. RTX2 PHYS THERAPY X2, RN X2, INTERNATIONAL FLIGHT ATTENDANT IN ROOM DURNING TRANSFER. WAS ABLE TO STAND TO TRANSFER TO NEW BED. NO RESP DISTESS NOTED.
--- NOTE | 2017-06-29 10:53 | NUR ---
PHYS THERAPY CONTINUE TO WORK WITH PATIENT. NO DISTRESS NOTED.
--- NOTE | 2017-06-29 11:19 | NUR ---
DR. CARLSON IN ROOM TALKING WITH PATIENT AND PATIENT . PATIENT IS PASSING FLATUS
--- NOTE | 2017-06-29 12:35 | NUR ---
PT PLACED ON THE BED WHITE AT THIS TIME, NO RESULTS AT THIS TIME.
--- NOTE | 2017-06-29 12:54 | NUR ---
PT IS ABLE TO TALK WITH STAFF BETTER TODAY. SHE IS ABLE TO WISPER IN A VERY SOFT TONE WHEN TALKING TO STAFF.
--- NOTE | 2017-06-29 13:14 | NUR ---
family at the bedside removed restraints on pt left hand so that family can hold her hand.
--- NOTE | 2017-06-29 14:28 | NUR ---
PT HHAVING INCREASED SECREATIONS AT THIS TIME, RT PRESENT AT THIS TIME TO ASSIST WITH THIS PROCESS. FAMILY REMAINS AT THE BEDSIDE.
--- NOTE | 2017-06-29 14:55 | NUR ---
PT GRANDCHILDREN HAVE LEFT, ONE DAUGHTER IN THE ROOM AT THIS TIME. WARM BLANKETS GIVEN AND LIGHTS TURNED DOWN FOR PT TO NAP AT THIS TIME. RESTRAINTS INPLACE AT THIS TIME.
--- NOTE | 2017-06-29 15:13 | NUR ---
PT SEEMED MORE ALERT AND AWARE TODAY. DAUGHTER IRIS IN. READ A STORY WITH THEM AND HAD PRAYER. WILL CONTINUE TO FOLLOW
--- NOTE | 2017-06-29 16:00 | NUR ---
PT HAS BEEN PLACED ON CPAP AT DIFFERENT TIMES THOUGHOUT THE DAY AND HAS DONE WELL WITH IT. PT DOES GET SOME ANXIETY WITH CPAP BUT YOU CAN ENCOURAGE HER AND SHE RELAXES. PT PASSING GAS AND HAD SMALL LIQUID STOOL AT THIS TIME.
--- NOTE | 2017-06-29 17:19 | NUR ---
CENTRAL LINE ALL THREE PORT FLUSH WITH EASY AND HAVE GOOD BLOOD RETURN THIS EVENING. ALL FLUSHED WITH 10MLS NS AND THE 5MLS HEPARINE. ORAL CARE COMPLETED THROUGH OUT THE DAY. PT TURNED AND PLACED IN A SITTING POSITION THROUGH OUT THE DAY ALSO. FAMILY HAS BEEN AT THE BEDSIDE AND VERY HELPFUL WITH PT CARE AND TELLING STAFF WHEAT THE PATIENT WOULD LIKE.
--- NOTE | 2017-06-29 17:30 | NUR ---
PT WANTED HER FAMILY TO LEAVE AT THIS TIME. PT STATED SHE WAS TIRED AND WANTED TO GO TO SLEEP. RESTRAINTS ARE INPLACE AND PT STATES SHE IS WARM AND CONFORTABLE AT THIS TIME.
--- NOTE | 2017-06-29 18:41 | NUR ---
PT INCONTENT OF STTOL AT THIS TIME. PT CLEANED UP, REPOSITIONED IN BED. RESTRAINTS IN PLACE.
--- NOTE | 2017-06-29 19:30 | NUR ---
FINISHING UP REPORT WITH DAYSHIFT. PATIENT IS RESTING QUIETLY ON THE VENT.
--- NOTE | 2017-06-29 20:00 | NUR ---
PATIENT HAS BEEN RESTING AND IN SEEING THE PATIENT. JUST CALLED FOR AN UPDATE ON THE PATIENT. LUNGS CLEAR IN THE BILATERAL UPPER LOBES AND DEMINISHED IN THE BILAT BASES. PATIENT HAS A FAIR AMOUNT OF EDEMA IN HER LOWER ARMS AND HANDS AND ALSO ALONG HER THIGHS, HIPS, AND SIDES. URINE OUTPUT IS WITHIN PARAMETERS. PATIENT IS ALERT AND ORIENTED, COMMUNICATING BEST SHE IS ABLE WITH MOUTHING WORDS OR USING LETTER BOARD.
--- NOTE | 2017-06-29 22:00 | NUR ---
PATIENT REMAINS AWAKE. FIDGETS A LOT, SCOOTS HERSELF DOWN IN BED. SLIGHTLY CONFUSED AFTER SEROQUEL GIVEN AT 1999, PATIENT HAS TO BE REMINDED NOW SHE IS IN THE HOSPITAL. VS STABLE.
--- NOTE | 2017-06-30 | NUR ---
2790 CALLED ABOUT PATIENT'S FIDGETING AND SEEMING INABILITY TO GO TO SLEEP. I WAS WANTING TO KNOW IF THERE WAS ANYTHING ELSE WE COULD GIVE HER OTHER THAN HALDOL. DID NOT WANT TO HAVE ANYMORE ATIVAN GIVEN, AND WANTED THE HALDOL TO BE GIVEN. SO PATIENT'S LINENS AND GOWN WERE CHANGED TO TRY AND MAKE HER MORE COMFORTABLE AND 1MG HALDOL GIVEN IV. PATIENT IS NO QUITE RESTLESS, BUT STILL AWAKE AT THIS TIME.
--- NOTE | 2017-06-30 01:25 | NUR ---
PATIENT STILL RESTLESS AND GIVEN ANOTHER 1MG OF HALDOL.
--- NOTE | 2017-06-30 02:04 | NUR ---
PATIENT WAS SLEEPING, BUT HAD TO BE AWAKENED DUE TO PROBLEMS WITH THE SPO2 PROBE. WORKING ON DIFFERENT AREAS TO TRY AND GET A GOOD READING.
--- NOTE | 2017-06-30 02:35 | NUR ---
PATIENT CONTINUES NOT TO SLEEP AND GIVEN ANOTHER 1MG OF HALDOL.
--- NOTE | 2017-06-30 04:00 | NUR ---
MORNING ASSESSMENT DONE. RT HERE DOING TRACH CARE. PATIENT HAS STILL NOT SLEPT SO FAR THIS SHIFT EXCEPT FOR BEING ASLEEP AT THE VERY BEGINING OF THE SHIFT AT 1900.
--- NOTE | 2017-06-30 06:32 | NUR ---
PATIENT REMAINS AWAKE. JUST STRAIGHTENED HER UP IN BED, TRACH SUCTIONING DONE, AND ELMORE BAG EMPTIED. WILL PASS ON CONCERN TO DAYSHIFT ABOUT MY CONCERNS FOR PATIENT GETTING SOME SLEEP.
--- NOTE | 2017-06-30 08:00 | NUR ---
AM CARES GIVEN. PATIENT IS SHORT OF BREATH WITH EXERTION. TUBE FEDDING CONTINUES AT 75 ML/HR.
--- NOTE | 2017-06-30 08:00 | NUR ---
TALKED WITH PATIENT ABOUT PLAN OF CARE FOR DAY. INDICATES UNDERSTANDING. ASSESSMENT DONE. ROM DONE.
--- NOTE | 2017-06-30 08:58 | NUR ---
DAUGHTER IN ROOM, RESTFUL.
--- NOTE | 2017-06-30 09:30 | NUR ---
RESTLESS. PATIENT HAS BEEN REPOSITIONED FREQUENTLY.
--- NOTE | 2017-06-30 10:00 | NUR ---
RESTRAINTS OFF WHILE FAMILY IN ROOM.
--- NOTE | 2017-06-30 10:00 | NUR ---
ON CPAP PEEP-5 PS-5.
--- NOTE | 2017-06-30 10:25 | NUR ---
DR. GOMEZ HERE TO SEE PATIENT AND TALK WITH FAMILY. DISCUSSED TREATMENT WITH RT AND RN WELL.
--- NOTE | 2017-06-30 10:45 | NUR ---
ON TRACH COLLAR AT 40%.
--- NOTE | 2017-06-30 10:54 | NUR ---
RT REMAINS IN ROOM WITH PATIENT MILY ON TRACH COLLAR MIST.
--- NOTE | 2017-06-30 11:10 | NUR ---
ANXIOUS, C/O SHORTNESS OF BREATH.
--- NOTE | 2017-06-30 11:45 | NUR ---
PLACED BACK ON VENT, CMV-14, TV-450, FIO2-40, PEEP-10. TOLERATED TRACH MIST TRIAL FAIR. DOES HAVE INCREASED WORK OF BREATHING AND DIAPHORTIC. HOB ELEVATED.
--- NOTE | 2017-06-30 12:00 | NUR ---
RESTRAINTS OFF WHILE FAMLIY IN ROOM.
--- NOTE | 2017-06-30 12:30 | NUR ---
PHYS THERAPY HERE TO WORK WITH PATIENT. RT/PT/RNX2 IN ROOM TO HELP PATIENT SIT AND STAND AT BEDSIDE. STOOD BRIEFLY WITH ASSIST OF 2 STAFF AND WALKER. TO COMMODE TO EXPELL MOD AMOUNT OF SOFT STOOL THEN BACK TO BED.
--- NOTE | 2017-06-30 13:40 | NUR ---
PLACED ON CPAP AT 40%, PEEP-10, PS-10
--- NOTE | 2017-06-30 15:03 | NUR ---
UP TO COMMODE WITH ASSIST TO EXPELL SMALL SOFT STOOL. BACK TO BED W/O INCIDENT.
--- NOTE | 2017-06-30 15:25 | NUR ---
FEEDING TUBE RETAPED WITH PINK TAPE. HANDS HAVE BEEN UNTIED WHEN FAMILY IN ROOM. EDUCATION TO THEM AND PATIENT REGARDING RESTRAINTS.
--- NOTE | 2017-06-30 15:55 | NUR ---
ASSESSMENT UNCHANGED. REMAINS ON CPAP 40% FIO2, PEEP-10, PS-10. NO RESP DISTRESS NOTED. IN ROOM.
--- NOTE | 2017-06-30 18:00 | NUR ---
restrains off as family in family in room.
--- NOTE | 2017-06-30 18:30 | NUR ---
PLACED BACK ON FULL VENT SUPPORT, PATIENT C/O SHORTNESS OF BREATH. TV-450, FIO2-40, PEEP-10.
--- NOTE | 2017-06-30 20:00 | NUR ---
STARTING TO GIVE EVENING FREE WATER AND MEDICATIONS, PATIENT STIRRING, BUT SEEMS REALLY TIRED. RT HERE TO DO VENT AND TUBING CHECK. URINE OUTPUT HAS BEEN GOOD.
--- NOTE | 2017-06-30 20:00 | NUR ---
PATIENT ASLEEP AT THIS TIME, GETTING REPORT FROM DAYSHIFT.
--- NOTE | 2017-06-30 22:09 | NUR ---
PATIENT RESTING QUIETLY, VS STABLE, RT JUST IN TO CHECK PT AND VENT.
--- NOTE | 2017-07-01 | NUR ---
PATIENT CONTINUES TO SLEEP QUIETLY ON THE VENT. BEST SLEEP SHE HAS HAD IN THE LAST 3 NIGHTS.
--- NOTE | 2017-07-01 01:32 | NUR ---
JUST CALLED AND LET HIM KNOW PATIENT HAS BEEN SLEEPING REALLY WELL, STILL AROUSES TO VOICE, BUT SLEEPING HARD ENOUGH BLOOD PRESSURE IS 90'S/40'S AND URINE OUTPUT IS RUNING A LITTLE OVER 20MLS AN HOUR. DR. RACHEL SAID LET'S WATCH HER FOR NOW.
--- NOTE | 2017-07-01 02:12 | NUR ---
PATIENT CONTINUES TO SLEEP, BUT WILL AWAKEN TO VOICE. URINE OUTPUT HAS PICKED UP TO 30MLS AN HOUR.
--- NOTE | 2017-07-01 04:15 | NUR ---
pATIENT STILL RESTING PEACEFULLY, TURNING SIDE TO SIDE WITH THE NEW PNUEMATIC AUTO ROTATION BED. URINE OUTPUT STARTING TO COMPUTER TECHNOLOGIST A LITTLE MORE. 4AM ASSESSMENT JUST DONE AND 100MLS OF FREE WATER GIVEN PER FEEDING TUBE FOR THE THIRD TIME THIS SHIFT PER ORDERS.
--- NOTE | 2017-07-01 06:58 | NUR ---
PATIENT'S TRACH CLEANED, ORAL CARE DONE, CATH CARE COMPLETED, ALL CENTRAL LINES FLUSHED WITH NS FLUSH THEN HEPLOCKED. PATIENT PULLED UP IN BED AND IS NOW WATCHING TV. PATIENT SLEPT WELL UNTILL ABOUT 0545.
--- NOTE | 2017-07-01 07:01 | NUR ---
5MLS BLOOD WASTED AND THEN LABS DRAWN FROM CENTRAL LINE AND SENT TO LAB.
--- NOTE | 2017-07-01 07:30 | NUR ---
REPORT RECIEVED AT BEDSIDE. PATIENT IS AWAKE AND ALERT.
--- NOTE | 2017-07-01 08:46 | NUR ---
TALKED WITH PATIENT ABOUT PLAN FOR TRACH MIST COLLAR.
--- NOTE | 2017-07-01 09:09 | NUR ---
PHYS THERAPY HERE TO WORK WITH PATIENT. REMAINS ON SAME SETTINGS VIA VENT ON CPAP.
--- NOTE | 2017-07-01 09:24 | NUR ---
FAMILY IN ROOM.
--- NOTE | 2017-07-01 09:40 | NUR ---
OOB TO CHAIR WITH ASSIST OF 4 STAFF. TOLERATED MOVEMENT WELL. REMAINS ON CPAP VIA VENT WITH PS-5, PEEP-10. FAMILY IN ROOM.
--- NOTE | 2017-07-01 10:00 | NUR ---
DR. RACHEL HERE TO SEE PATIENT, ORDERS RECIEVED.
--- NOTE | 2017-07-01 10:30 | NUR ---
TO COMMODE FROM CHAIR WITH ASSIST OF 4 STAFF. 2 STAFF MOVE PATIENT, ONE MANAGE AIRWAY, ONE MOVING EQUIPMENT IN ROOM. HAD SMALL BM THEN TO BED.
--- NOTE | 2017-07-01 11:20 | NUR ---
TRACH MIST COLLAT APPLIED PER RT.
--- NOTE | 2017-07-01 11:35 | NUR ---
REMAINS ON TRACH MIST COLLAR. IS DIAPHORTIC. C/O SHORTNESS OF BREATH. ANXIOUS.
--- NOTE | 2017-07-01 12:20 | NUR ---
RETURN TO CPAP VIA VENT, SMAE SETTINGS OF FIO2-40, PS-5, PEEP-10. PATIENT IS TIRED. HOB ELEVATED.
--- NOTE | 2017-07-01 14:55 | NUR ---
TO COMMODE WITH ASSIST. HAD MEDIUM SOFT STOOL. GOOD U/O WITH LASIX. IS MUCH STRONGER. TRANSFERRED WITH TRACH COLLAR AT 40% ON. O2 SAT 100%. RR-30. TO CHAIR FROM COMMODE, MOVING WELL.
--- NOTE | 2017-07-01 15:32 | NUR ---
HANDS HAVE BEEN UNTIED ALL DAY. NO ATTEMPT TO PULL ANYTHING OUT OR OFF.
--- NOTE | 2017-07-01 18:04 | NUR ---
NO CHANGES. RESTFUL ON CPAP VIA VENT.
--- NOTE | 2017-07-01 18:50 | NUR ---
BACK ON FULL VENT, TV-450, PEEP-5, FIO2-40,PS-10, CMV-14. RESTFUL.
--- NOTE | 2017-07-02 05:33 | NUR ---
PT GIVEN BED BATH. CHANGED: DRAW SHEET, CHUX, GOWN, TELEMETRY LEADS, PULSE OXIMETER, SCDS. ORAL CARE DONE. PT HAD SMEAR BM, CLEANED PERIAREA. LOTION PLACED ON PT BODY AND REPOSITIONED SUPINE WITH FEET ELEVATED ON PILLOWS. PT DENIES PAIN. PT NOW RESTING ASLEEP.
--- NOTE | 2017-07-02 08:00 | NUR ---
ASSESSMENT DONE. REMAINS ON VENT. TV-450, PEEP-10,FIO2 40%. CMV-14. DENEIS PAIN. ORAL TEMP 100.9.
--- NOTE | 2017-07-02 09:00 | NUR ---
OOB TO COMMODE TO HAVE SMALL STOOL. THEN TO CHAIR PER PATIENT R/O. IS WEAKER TODAY. TRACH COLLAR USED FOR TRANSFERS. AFTER IN CHAIR BACK TO CPAP FIO2-40, PS-10, PEEP-5. DAUGHTER IS IN ROOM AND AWARE OF FEVER.
--- NOTE | 2017-07-02 10:10 | NUR ---
CHEST XRAY COMPLETE, BLOOD CULT X 2 OBTAINED. UA SENT TO LAB. WILL COLLECT SPUTUM ALSO. DAUGHTER REMAINS IN ROOM. TUBE FEEDING INFUSING AT 75 ML/HR.
--- NOTE | 2017-07-02 10:30 | NUR ---
BACK TO BED WITH ASSIST. WEAKER TODAY.
--- NOTE | 2017-07-02 11:09 | NUR ---
ASLEEP. NO DISTRESS NOTED. CPAP, PEEP-5, PS-8, FIO2-40%, PIP-16.
--- NOTE | 2017-07-02 12:00 | NUR ---
OOB TO CHAIR PER PATIENT R/O.
--- NOTE | 2017-07-02 14:00 | NUR ---
SUBCLAVIAN CENTRAL LINE DC'D. IV SITE STARTED TO LFA 20 GA.
--- NOTE | 2017-07-02 15:51 | NUR ---
REMAINS IN CHAIR. ON TRACH MIST COLLAR.
--- NOTE | 2017-07-02 16:00 | NUR ---
BACK TO BED.
--- NOTE | 2017-07-02 18:43 | NUR ---
FAMILY IN ROOM. LASIX 40 MG IV GIVEN. IS AWAKE AND W/O C/O.
--- NOTE | 2017-07-02 20:55 | NUR ---
REPORT RECEIVED FROM LUCINDA VALLEJO AT 1900. PT ASSESSMENT COMPLETED AT 1999. ORAL CARE PROVIDED, TRACH SUCTIONING. REPOSITIONED WITH PILLOWS UNDER HIPS, PILLOWCASE BETWEEN LEGS TO PREVENT BREAKDOWN. CHANGED TUBE FEEDING BAG. INFUSING AT 75ML/HR. PT ABLE TO COMMUNICATE WITH SIGN LANGUAGE. USES CALL LIGHT APPROPRIATELY.
--- NOTE | 2017-07-03 00:08 | NUR ---
PT REPOSITIONED IN BED. ROM DONE ON PT LEGS/ARMS. PT GIVEN SIPS WATER. USES YANKER TO SUCTION MOUTH. USES CALL LIGHT FOR NEEDS.
--- NOTE | 2017-07-03 03:10 | NUR ---
PT REPOSITIONED IN BED. OFFERED SIPS OF WATER. NO NEEDS.
--- NOTE | 2017-07-03 04:16 | NUR ---
PT USED CALL LIGHT TO ASK FOR SIPS PO. RT IN TO CHANGE TRACH DRESSING AND CLEAN. PT ONLY DOSING ON OFF THIS SHIFT.
--- NOTE | 2017-07-03 05:41 | NUR ---
PT REPOSITIONED SUPINE WITH PILLOWS. ROM DONE ON PT. OFFERED SIPS LIQUID. USED STRAW TO DROP INTO PT MOUTH. SWALLOWING WELL.
--- NOTE | 2017-07-03 06:00 | NUR ---
REPORT RECIEVED. PATIENT RESTFUL.
--- NOTE | 2017-07-03 07:46 | NUR ---
slid patient up in bed
--- NOTE | 2017-07-03 08:00 | NUR ---
ASSESSMENT DONE. TALKED WITH PATIENT ABOUT PLAN OF CARE FOR DAY. CVM OF 14 NOW TO CPAP AT PEEP-5, PS-5. FEEDING REMAINS AT 75 ML/HR. DENEIS NAUSEA. ABD IS SOMEWHAT FIRM. IS PASSING FLATUS. SCD'S ON. LESS EDEMATOUS IN LEGS THIS MORNING.
--- NOTE | 2017-07-03 08:15 | NUR ---
TRACH MIST COLLAR APPLIED. AT 40% FIO2. ASSISTED OOB TO CHAIR. TOOK FEW STEPS TO CHAIR WITH ASSIST.
--- NOTE | 2017-07-03 08:20 | NUR ---
IS DIAPHORTIC. C/O SHORTNESS OF BREATH. ENCOURAGEMENT GIVEN. DAMP RAG APPLIED. DAUGHTER IN ROOM.
--- NOTE | 2017-07-03 10:00 | NUR ---
DR. RACHEL HERE TO SEE PATIENT. IS AWARE OF SM WHITE PUSTALS ON BACK OF RIGHT LEG. VALTREX STARTED. DENIES PAIN AT SITE OF PUSTALS. REMAINS VERY EDEMATOUS. LASIX DOSE INCREASED.
--- NOTE | 2017-07-03 10:27 | NUR ---
RN ASSISTED WITH PUTTING SCD'S BACK ON PATIENT. GAVE PATIENT TWO SMALL SIPS OF APPLE JUICE. NOW SHE IS RESTING
--- NOTE | 2017-07-03 10:57 | NUR ---
PATIENT TOLERATING TUBE FEEDING WELL, DAY 9 TODAY. WATER FLUSHES HAVE DECREASED TO 50 ML EVERY 4 HOURS. LASIX DOSE HAS INCREASED DUE TO SIGNIFICANT EDEMA. TODAY'S LABS: BUN 24, CREAT 0.50, GFR 117, GLUCOSE 143, PHOS 2.9 (WNL), BNP 702 (HIGH), PREALUMIN HAS GONE UP TO 11.3 FROM 5.8 ON 06/18/17. PATIENT IN IMPROVING BUT STILL HAS BREATHING ASSISTANCE VIA THE TRACH, THEREFORE STILL NEEDS NUTRITION SUPPORT. NO NUTRITION INTERVENTION RECOMMENDED AT THIS TIME. WILL CONTINUE TO MONITOR.
--- NOTE | 2017-07-03 11:02 | NUR ---
PATIENT CONTINUES TO RECEIVE IRON SUPPLEMENTATION.
--- NOTE | 2017-07-03 11:07 | NUR ---
RN IN ROOM GIVING TUBE FEED. LETTING PATIENT REST FOR AWHILE.
--- NOTE | 2017-07-03 11:15 | NUR ---
UP TO COMMODE WITH ASSIST TO EXPELL MED SOFT BROWN STOOL. SPONGE BATH GIVEN THEN BACK TO BED.
--- NOTE | 2017-07-03 12:15 | NUR ---
C/O SHORTNESS OF BREATH. CPAP PRESSURE INCREASED FROM 5 TO 8. RESP AWARE.
--- NOTE | 2017-07-03 12:37 | NUR ---
SUCTIONED FOR MOD AMOUNT OF WHITE THIN SPUTUM.
--- NOTE | 2017-07-03 12:44 | NUR ---
patient's gave her a small sip of water
--- NOTE | 2017-07-03 13:08 | NUR ---
PATIENT WORKING WITH PHYSICAL THERAPY.
--- NOTE | 2017-07-03 13:59 | NUR ---
TURNED SCD MACHINE ON, PUT FOOTREST UP AND PUT PILLOWS UNDER LEGS. GAVE PATIENT CALL LIGHT AND TV REMOTE.
--- NOTE | 2017-07-03 14:12 | NUR ---
PT IN BED, WITH JUANIS BY HER SIDE. SHE SEEMED MUCH MORE AWARE, AND EASIER TO UNDERSTAND. GOOD VISIT, PT REQUESTED PRAYER, WILL CONTINUE TO FOLLOW
--- NOTE | 2017-07-03 16:58 | NUR ---
GAVE PATIENT TWO SIPS OF APPLE JUICE
--- NOTE | 2017-07-03 17:54 | NUR ---
GAVE PATIENT TWO SMALL SIPS OF WATER
--- NOTE | 2017-07-03 18:19 | NUR ---
slid patient up in bed
--- NOTE | 2017-07-03 19:26 | NUR ---
REPORT TO NEXT SHIFT. NO CHANGES. WATCHING TV W/HOB ELEVATED.
--- NOTE | 2017-07-03 19:30 | NUR ---
PT SHIFT REPORT RECIVED FROM DAY SHIFT RN ALL QUESTIONS ANSWERED. PT RESTING IN BED WITH FAMILY AT BEDSIDE.
--- NOTE | 2017-07-03 20:00 | NUR ---
PT ASSESSMENT COMPLETED. PT IS ON VENTILATOR ON CMV. PT IS TOLERATING WELL. PT BOWEL TONES ACTIVE. EDEMA PRESENT IN BLE, RIGHT FOOT, HIPS/PELVIC REGION. NO RESTRAINTS PRESENT. TUBE FEED AT 75ML/HR WITH PRN FLUSHES OF WATER. WILL CONTINUE TO CLOSELY MONITOR.
--- NOTE | 2017-07-03 22:00 | NUR ---
TUBE FEED TUBING CHANGED, MEDICATIONS GIVEN WITHOUT AN ISSUES. PT TOLERATING TUBE FEED WELL. WILL ENCOURAGE REST AT THIS TIME.
--- NOTE | 2017-07-03 23:00 | NUR ---
PT UNSURE IF HAVING GAS OR NEEDS TO HAVE BM. PT ASKED FOR BEDPAN. PT ON BEDPAN AND OFF WITH LITTLE BM PRESENT. PT CLEANED. NEW GOWN PLACED AND CLEAN ALIZA PADS IN PLACE. PT NOW RESTING AT THIS TIME. WILL CONTINUE TO CLOSELY MONITOR.
--- NOTE | 2017-07-04 01:00 | NUR ---
PT RESTING WELL AT THIS TIME. PT AROUSABLE TO STAFF WALKING IN THE ROOM. PT DENIES ANY ISSUES AT THIS TIME. CALL LIGHT IN HAND. WILL CONTINUE TO CLOSELY MONITOR.
--- NOTE | 2017-07-04 03:00 | NUR ---
PT RESTING IN BED. PT TUBE FEED IS AT 75ML/HR. PT AWAKENS WHEN STAFF ENTERS ROOM TO CHECK URINE OUTPUT. PT DENIES ANY ISSUES AT THIS TIME. HELPED TO REPOSITION. WILL CONTINUE TO MONITOR.
--- NOTE | 2017-07-04 06:44 | NUR ---
EMPTIED PT'S ELMORE PER RN REQUEST. RN WAS NOTIFIED OF OUTPUT. ASSISTED RN WITH REPOSITIONING OF PT.
--- NOTE | 2017-07-04 06:46 | NUR ---
PT REPOSITIONED IN BED WITH PILLOW SUPPORT. PT TOLERATED WELL. TUBE FEED FLUSHED WITH MEDS AND WATER PT TOLERATED WELL. NO OTHER ISSUES AT THIS TIME.
--- NOTE | 2017-07-04 08:17 | NUR ---
PATIENT RESTING IN BED UPON INITIAL ASSESSMENT WITH VENT SETTINGS OF CMV 14, PEEP 5, VT 450, AND FI02 40%. PATIENT APPEARS COMFORTABLE AND DOES NOT SEEM TO BE WORKING HARD TO BREATH. PT HAS TUBE FEEDS INFUSING AT 75 ML/HR INTO LEFT NARE. BP THIS AM IS 105/49 (63). SP02 CURRENTLY IS 100%, AND PT IS BREATHING 17-19. SCDs ARE ON. ELMORE DRAINING YELLOW URINE. PT HAS IV SITE IN LEFT FOREARM. AM MEDS TO BE GIVEN.
--- NOTE | 2017-07-04 11:27 | NUR ---
PATIENT UP TO BEDSIDE COMMODE AT 1105, AND THEN SAT IN CHAIR. PT ABLE TO STAND ON STANDING SCALE AND WAS WEIGHED AT 152.6 LBS. PATIENT HAD A MEDIUM SIZED BM WHILE UP ON BSC. PT NOW SITTING IN CHAIR ON TRACH MIST AND TOLERATING WELL. PT'S DAUGHTER AT HER SIDE WITH HER. PT INDICATES THAT SHE IS SOMEWHAT SHORT OF BREATH BUT SHE IS WORKING THROUGH IT. PT USING SOME ACCESSORY MUSCLES TO BREATH BUT TOLERATING STILL. SP02 IS 99% AT THIS TIME. RR IS [address] RACHEL NOW IN ROOM TO ASSESS PATIENT AGAIN. CONTINUE TO MONITOR.
--- NOTE | 2017-07-04 12:38 | NUR ---
PATIENT HAS TOLERATED BEING UP IN CHAIR AND ON TRACH MASK AT 10 L SINCE 1105. PT REMAINS SITTING IN CHAIR AT THIS TIME WITH HER DAUGHTER CLOSE. CONTINUE TO MONITOR.
--- NOTE | 2017-07-04 13:47 | NUR ---
PATIENT CONTINUES TO SIT IN CHAIR AND REMAINS ON THE TRACH MASK AT 10 L. PATIENT HAS TOLERATED WELL. PT STATES SHE IS READY TO GO BACK ON THE CPAP, BUT SHE IS DOING VERY WELL. PATIENT GIVEN MEDS THROUGH G TUBE. RT NOW IN ROOM.
--- NOTE | 2017-07-04 15:48 | NUR ---
PATIENT TOLERATED TRACH MASK FROM 1030 UNTIL 1408 TODAY AND TOLERATED THIS WELL. PATIENT HAS CONTINUED TO SIT UP IN CHAIR THROUGH THE DAY AND IS STILL IN CHAIR AT THIS TIME, WITH HER AT CHAIRSIDE. PATIENT HAS HAD TWO BMs TODAY SO FAR. TUBE FEEDS CONTINUE TO INFUSE AT 75 ML/HR. MONITOR.
--- NOTE | 2017-07-04 19:01 | NUR ---
PATIENT HELPED BACK TO BED X2 ASSIST. PT TOLERATED THIS ACTIVITY VERY WELL. HEART RATE NOTED TO JUMP UP INTO THE 120s WITH THIS ACTIVITY, BUT NOW HEART RATE IN THE 100s, AFIB. PT ON VENT WITH SETTINGS OF CMV 14, VT 450, PEEP 5, PRESSURE SUPPORT 8. CONTINUE TO MONITOR.
--- NOTE | 2017-07-04 19:45 | NUR ---
PT SHIFT REPORT RECIVED FROM DAY SHIFT RN. ALL QUESTIONS ANSWERED. PT ASSISTED BACK TO BED AND NOW RESTING IN BED WITH FAMILY AT BEDSIDE. WILL CONTINUE TO CLOSELY MONITOR. CALL LIOGHT IN HAND.
--- NOTE | 2017-07-04 20:45 | NUR ---
PT RESTING IN BED. PT ASSESSMENT COMPLETED. BOWEL TONES ACTIVE SLIGHTLY DISTENDED ABDOMEN. PT DENIES TENDERNESS IN ABDOMEN. INCISION TO ABD C/D/I. BREATH SOUNDS CLEAR AND DIMINISHED IN BASES. EDEMA NOTED IN BLE. ELMORE CATH CARE PROVDIDED. WILL CONTINUE TO CLOSELY MONITOR. CALL LIGHT IN PT HAND.
--- NOTE | 2017-07-04 21:45 | NUR ---
PT REPOSITIONED IN BED WITH PILLOW SUPPORT. PT IS MORE COMFORTABLE NOW. WILL CONTINUE TO MONITOR. CALL LIGHT IN HAND.
--- NOTE | 2017-07-04 22:00 | NUR ---
PT COUGHING. SUCTIONED PT PER REQUEST. CALLED RT TO ASSIST IN CLEANING AND INNER CANNUAL CHANGE. ALL MEDICATIONS ADMINISTERED. TUBE FEEDING TUBING CHANGED. PT TOLERATED WELL. WILL CONTINUE TO CLOSELY MONITOR.
--- NOTE | 2017-07-05 00:38 | NUR ---
PT RESTING WELL AT THIS TIME. CALL LIGHT IN HAND. PT AT 30 DEGREE ANGLE PER ORDERS FOR TUBE FEED. WILL CONTINUE TO CLOSELY MONITOR AT THIS ITME.
--- NOTE | 2017-07-05 03:21 | NUR ---
PT WOKE UP D/T COUGHING. ENTERED ROOM TO SEE IF PT WAS OKAY AND PT NEEDED SUCTIONED. PT SUCTIONED X2. PT SHAKES HEAD YES WHEN ASKED IF ITS BETER. PT DENIES NEEDING SUCTIONED ANYMORE. PT DENIES ANY OTHER ISSUES AT THIS TIME. CALL LIGHT IN HAND. WILL CONTINUE TO MONITOR.
--- NOTE | 2017-07-05 04:10 | NUR ---
PT ABLE TO SHIFT HER WEIGHT IN BED. ENTERED ROOM AND PT HAD REPOSTIONED SELF. ASKED PT IF SHE WOULD LIKE HELP TURNING MORE ON SIDE AND PT NODED HEAD YES. PT REPOSITIONED WITH PILLOW SUPPORT. PT DENIES ANY OTHER ISSUES AT THIS TIME. CALL LIGHT IN HAND. WILL CONTINUE TO MONITOR.
--- NOTE | 2017-07-05 05:30 | NUR ---
PT CALLED TO HAVE A SIP OF WATER. GAVE PT A SIP OF FRESH ICE WATER. PT DENEIS ANY OTHER ISSUES AT THIS TIME. WILL CONTINUE TO MONITOR.
--- NOTE | 2017-07-05 07:09 | NUR ---
ENTERED PT'S RM, SHE WAS SITTING IN CHAIR. SHE SEEMED MORE ALERT AND ORIENTED THAN IN PREVIOUS VISITS. SHE SHOOK MY HAND, SMILED AND THEN LET ME KNOW SHE NEEDED AN RN, WHICH I RETREIVED. MET WITH HER DAUGHTER AND DENISSE. THEY WERE JUST ARRIVING. SEEMED A LITTLE WEAK TODAY, AND ADMITTED IT. HIS DAUGHTER IRIS STAYED CLOSE BY HIS SIDE. WILL CONTINUE TO FOLLOW
--- NOTE | 2017-07-05 07:45 | NUR ---
PT HAD INVOULANTARY BM, PT ASSISTED TO TURN HERSELF FROM SIDE TO SIDE DURING CHANGEING. SKIN IN SARA AREA IS INTACT. DRAW SHEET CHANGED, PT REPOSITIONED FOR COMFORT. PT ABLE TO COMMUNICATE FAIRLY CLEARLY, ABLE TO MOVE MOUTH, NO SOUND COMES OUT.
--- NOTE | 2017-07-05 08:55 | NUR ---
PT UP TO BEDSIDE COMMODE WITH TWO PERSON ASSIST. PT NOW OFF CPAP ON WEANING TRIAL WITH HUMIDIFIED AIR. PT INEZ ACTIVITY WELL. PT DENIES PAIN, NAUSEA, AND SOB WITH MOVEMENT. PT ABLE TO HAVE MEDIMUM BM. PT THEN UP AND MOVED TO THE CHAIR.
--- NOTE | 2017-07-05 13:09 | NUR ---
PT SEEMS TO IMPROVE EACH DAY. MORE ALERT TODAY THAN YESTERDAY. EASIER TO UNDERSTAND HER, AND KNOW WHAT SHE IS WHISPERING. AND DAUGHTER AMBER HERE TODAY. STAFF NEEDED TO COME IN-WILL CONTINUE TO FOLLOW
--- NOTE | 2017-07-05 14:30 | NUR ---
PT UP TO BEDSIDE COMMODE, HAD SMALL BM. THEN BACK TO BED WITH BIPAP BACK IN PLACE. PT NOW OFF WEANING TRIAL. PT DENIES PAIN, NAUSEA, AND SOB AT THIS TIME.
--- NOTE | 2017-07-05 17:06 | NUR ---
PT SITTING UP IN BED, FAMILY JUST LEFT BEDSIDE TO GO HOME. PT INEZ SIPS OF JUICE WELL. PT DENIES PAIN, NAUSEA AND SOB AT THIS TIME.
--- NOTE | 2017-07-05 18:54 | NUR ---
PT MADE GOOD PROGRESS TODAY. ABLE TO INEZ 5 HOURS OFF BIPAP WITH HUMIDIFIED AIR TO TRACH. PT SAT UP IN CHAIR FOR OVER 5 HOURS. PT UP TO BEDSIDE COMMODE X3 THROUGH SHIFT. PT ABLE TO HELP REPOSITION AND AMBULATE SELF. PT INEZ SIPS OF APPLE JUICE, [place] PUMP IS RUNNING CONTINUIOUSLY AT 75 ML/HR. Q 4 HOUR WATER FLUSHES GIVEN. PT INEZ WELL, DENIES PAIN, NAUSEA, AND SOB. URINE OUTPUT IS GREATERT THAN QS.
--- NOTE | 2017-07-05 20:00 | NUR ---
SHIFT REPORT RECEIVED FROM YONI DORSEY. PT IS RESTING IN BED, ALERT AND ORIENTED. ASSESSMENT COMPLETED. PT DENIES PAIN AND NAUSEA. LUNGS SOUND CLEAR, ON CPAP AT THIS TIME. HR IRREGULAR. BOWEL TONES ACTIVE. PT ASKED TO SIT ON COMMODE, ATTEMPTED TO HAVE BM, ONLY HAD SMEAR OF GELATINOUS STOOL. TRANSFERRED WITH 2-PA. SCD'S IN PLACE. PT DENIES NEEDS AT THIS TIME, WILL CONTINUE TO MONITOR.
--- NOTE | 2017-07-05 21:00 | NUR ---
TUBE FEEDING INFUSING AT 75 ML/HR. AFTER ADMINISTERING PT'S CRUSHED MEDS, TUBE NO LONGER EASILY FLUSHING. TUBE FEEDING TURNED TO OFF AT THIS TIME, WILL CONTINUE TO ATTEMPT FLUSHES WITH WATER AND WILL RESTART FEEDING ONCE TUBE IS WORKING BETTER.
--- NOTE | 2017-07-05 21:30 | NUR ---
I ATTEMPTED TO SUCTION PT, HOWEVER WHEN I TURNED THE BUTTON ON THE IN-LINE SUCTION TO TURN IT ON, THE BUTTON BROKE AND I WAS UNABLE TO SUCTION PT. R.T. IN TO CHANGE IN-LINE SUCTION EQUIPMENT AND PROVIDE SUCTION AT THIS TIME.
--- NOTE | 2017-07-05 23:07 | NUR ---
BOOSTED PT UP IN BED. R.T. IN TO ROOM TO SWITCH OVER TO VENT SETTINGS FROM CPAP. PT DENIES FURTHER REQUESTS.
--- NOTE | 2017-07-06 00:16 | NUR ---
ASSESSMENT COMPLETED. PT DENIES PAIN AND NAUSEA. LUNGS SOUND SLIGHTLY MORE COARSE IN UPPERS, PT DENIES NEED FOR SUCTIONING. HR IRREGULAR. BOWEL TONES ACTIVE. SCD'S IN PLACE. IV SL. TUBE FEED REMAINS OFF AT THIS TIME, ATTEMPTING TO FLUSH TUBING AND REGAIN PATENCY. PT BOOSTED UP IN BED AGAIN. PT DENIES NEEDS, WILL CONTINUE TO MONITOR.
--- NOTE | 2017-07-06 01:04 | NUR ---
ASSISTED R.T. TO PROVIDE TRACH CARE. CLEANED AROUND SITE WITH STERILE WATER AND REPLACED GAUZE AROUND TUBE. PT TOLERATED WELL. PT DENIES NEEDS, WILL CONTINUE TO MONTIOR.
--- NOTE | 2017-07-06 02:15 | NUR ---
PT APPEARS TO BE SLEEPING. RR:16, EVEN AND UNLABORED, VENT IN PLACE. METOPROLOL ADMINISTERED. WILL CONTINUE TO MONITOR.
--- NOTE | 2017-07-06 04:06 | NUR ---
ASSESSMENT COMPLETED. PT IS AWAKE AT THIS TIME, ORIENTED. DENIES PAIN AND NAUSEA. LUNGS SOUND CLEAR, VENT IN PLACE. HR IRREGULAR. BOWEL TONES ACITVE. EDEMA UNCHANGED. SCD'S IN PLACE. IV SL. TUBE FEED REMAINS OFF, STILL TRYING TO RECOVER PATENCY OF FEEDING TUBE. ELMORE PATENT, DRAINING FREELY. PT TOLERATING SIPS OF APPLE JUICE. PT DENIES NEEDS AT THIS TIME, WILL CONTINUE TO MONITOR.
--- NOTE | 2017-07-06 05:17 | NUR ---
REPOSITIONED IN PT BED. SHE CONTINUES TO DENY PAIN. WILL CONTINUE TO MONITOR.
--- NOTE | 2017-07-06 06:10 | NUR ---
IMAGING STAFF IN ROOM TO OBTAIN CHEST X-RAY AT THIS TIME.
--- NOTE | 2017-07-06 06:14 | NUR ---
CALLED AND LET DR. GOMEZ KNOW THAT I HAVE BEEN UNABLE TO GET HER FEEDING TUBE TO FLUSH. LET HIM KNOW THAT I'VE BEEN ATTEMPTING TO FLUSH WITH COLA AND LET IT SIT, BUT THAT IT STILL IS NOT FLUSHING. HE STATES TO CONTINUE TO ATTEMPT FLUSHES WITH COLA AND THAT HE WILL BE IN MIDDAY TO SEE PT. HE ALSO STATES THAT IT MAY NEED TO BE REPLACED.
--- NOTE | 2017-07-06 08:33 | NUR ---
PATIENT AWAKE UPON INITIAL ASSESSMENT. RT HAS BEEN IN ROOM AND PATIENT SWITCHED OVER TO CPAP. PATIENT ASKED ABOUT HER NIGHT AND HER SLEEP AND SHE INDICATES WITH HAND GESTURES THAT IT WAS "SO SO" AND SHE DIDN'T SLEEP THAT MUCH. PATIENT DENIES HAVING ANY PAIN ANYWHERE IN HER BODY AT THIS TIME. WHEN ASKED IF SHE IS SHORT OF BREATH AT ALL, SHE DOES NOD HEAD YES. SP02 IS CURRENTLY 100% ON THE 40% FI02 CPAP. HEART RATE IN THE 90s. LAST BP 106/56 (68). TUBE FEED REPORTED TO BE CLOGGED AT THIS TIME. WILL ATTEMPT TO FLUSH LINE AND DE-CLOG IF POSSIBLE. PT'S WEIGHT ON THE BED IS 163.4 LBS, BUT A STANDING SCALE WILL BE USED WELL. PT HAS ELMORE DRAINING CLEAR YELLOW URINE IN GOOD AMOUNTS. CONTINUE TO MONITOR.
--- NOTE | 2017-07-06 10:47 | NUR ---
PATIENT UP TO [facility] TO HAVE A BM AND WORK WITH PHYSICAL THERAPY. PT HAD A DECENT SIZED SEMI LIQUID SOFT BM IN COMMODE, BUT ALSO A LARGE AMOUNT IN THE BED THAT WAS INVOLUNTARY. PT WORKED WITH PT AND WALKED IN PLACED, BUT IS NOW SITTING IN CHAIR AND INDICATING SHE IS SHORT OF BREATH. PT ON THE TRACH MASK COLLAR. DR. RACHEL AND MEDICAL STUDENT IN ROOM NOW ASSESSING PATIENT. PT WRITING NOTES TO DR. RACHEL SAYING "VERY SHORT OF BREATH THIS AM." AT AROUND 0850, AFTER PATIENT WAS PLACED ON TRACH MASK, PATIENT BECAME VERY SHORT OF BREATH AND THERE WAS AN OBVIOUS INCREASE IN HER WORK OF BREATHING. ATTEMPTS WERE MADE TO SUCTION WITHOUT SUCCESS. RT WAS CALLED AND ASKED TO COME EVALUTE PATIENT. AGAIN, SUCTIONING WAS ATTEMPTED. PATIENT'S INNER CANNULA OF HER TRACHEOSTOMY WAS REMOVED AND CLEANED. UPON REMOVAL, A THICK DARK COLORED SPUTUM PLUG WAS NOTED IN THE TIP OF THE CANNULA. PATIENT BREATHING BETTER AFTER THIS WAS REMOVED. PATIENT THEN PLACED ON TRACH COLLAR AROUND 0900. GOAL IS FOR PATIENT TO TOLERATE 6 HR ON THE TRACH COLLAR TODAY. PT'S STANDING WEIGHT THIS AM IS 141 LBs. DIURETICS TO BE HELD OFF GIVING TODAY PER DR. RACHEL. DOBBHOFF TUBE REMAINS CLOGGED WITHOUT SUCCESS TO DE-CLOG. CONTINUE TO MONITOR.
--- NOTE | 2017-07-06 11:38 | NUR ---
RT IN ROOM WORKING WITH PATIENT ON THE DEFLATING OF THE CUFF TRIALS. NEW IV PLACED IN RIGHT FOREARM 22 G. PATIENT TOLERATING WELL THUS FAR. FAMILY IN ROOM AT BEDSIDE.
--- NOTE | 2017-07-06 12:14 | NUR ---
ASSISTED PT TO BEDSIDE COMMODE, PT VOIDED, THEN RETURNED TO CHAIR. PT IS NOW SITTING UP IN CHAIR WITH CALL LIGHT IN REACH
--- NOTE | 2017-07-06 12:20 | NUR ---
Pt to bedside commode, 2 person assist for small brown formed BM, pt cleaned and bonnie-care done after BM, 2 person transfer back to chair. Pt tolerates transfer well. No distress noted during this time.
--- NOTE | 2017-07-06 14:20 | NUR ---
PATIENT HAS THUS FAR BEEN TOLERATING THE TRACH MASK VERY WELL TODAY, AND HAS REMAINED SITTING IN THE CHAIR SINCE EARLIER THIS AM. PT NOW WANTING TO GET UP TO [facility] TO HAVE ANOTHER BM. PT IS A 1-2 PERSON ASSIST TO THE COMMODE. PT INDICATING THAT SHE FEELS SHE NEEDS TO BE SUCTIONED, AND A RHONCHOUROUS NOISE HEARD EASILY THROUGH THE TRACH TUBE. PATIENT WILL HIT HER GOAL OF 6 HOURS ON THE TRACH MASK AT 1500. PATIENT RECEIVING 20 MEQ IV POTASSIUM AT THIS TIME, BUT A SECOND DOSE TO FOLLOW. PATIENT TOLERATED THE CUFF ON THE TRACH BEING DEFLATED WELL WITH RT EARLIER, AND WAS ABLE TO SPEAK SOME WORDS WHILE THE TRACH WAS OCCULUDED BY RT. EVALAUTING WHERE THE SPEAKING VALVES ARE AND ANTICIPATE USING THE SPEAKING VALVES SOON WITH THIS PATIENT. CONTINUE TO MONITOR CLOSELY.
--- NOTE | 2017-07-06 14:56 | NUR ---
PT SITTING IN CHAIR, WITH DENISSE BY HER SIDE ALWAYS. SHE WAVED ME IN AND HELD OUT HER HAND TO HOLD MINE. SHORT, BRIEF VISIT TODAY-SHE NEEDS KERRIE DUMONT RT IN TO CARE FOR HER. HAD A BRIEF PRAYER, WILL FOLLOW NEEDED
--- NOTE | 2017-07-06 15:02 | NUR ---
PATIENT IS AT HER 6 HR GOAL OF WEARING THE TRACH MASK AND DOING VERY WELL. PT AGREES TO TRY GO TO LONGER, AND WE AGREE WITH PATIENT AND WITH RT THAT WE WILL CONTINUE TO ASSESS PATIENT EACH HOUR (AND IN BETWEEN) AND SEE IF SHE NEEDS TO REST AND GO BACK ONTO CPAP. PT CURRENTLY SITTING IN CHAIR AND IS NOT USING ACCESSORY MUSCLE USE, SP02 IS 100%, AND HEART RATE IN THE 70s, AFIB. PT'S DAUGHTER AND REMAIN IN ROOM. PT GIVEN A CLEAR ENSURE TO SIP ON.
--- NOTE | 2017-07-06 15:09 | NUR ---
FEEDING TUBE CLOGGED LAST NIGHT. STILL CLOGGED THIS AFTERNOON. DR. GOMEZ MAY REPLACE IT WHEN HE COMES IN. SHOULD BE ABLE TO RESUME FEEDING USING JEVITY 1.5 FORMULA AT 75 ML/HR. PATIENT HAVING BM'S AND TOLERATING TUBE FEEDING FINE. SHE IS BECOMING MORE ACTIVE. WEIGHT TODAY 141 LBS - PATIENT WAS RECEIVING DIURETICS FOR THE PAST SEVERAL DAYS. JEVITY 1.5 AT 75 ML/HR IS PROVIDING 2700 CALORIES/DAY. WILL CONTINUE TO MONITOR.
--- NOTE | 2017-07-06 16:57 | NUR ---
CARE CONFERENCE DR GOMEZ/FAMILY/PATIENT/VETERINARY MICROBIOLOGIST/MYSELF PATIENT EXCEEDED COLLAR TRIAL TODAY. FEEDING TUBE PLUGGED. NEW TUBE PLACED BY DR GOMEZ. PATIENT TO RESUME FEEDINGS. QUESTIONS BY FAMILY ANSWERED BY DR GOMEZ.
--- NOTE | 2017-07-06 17:10 | NUR ---
NEW DOBBHOFF TUBE PLACED IN LEFT NARE PER DR. GOMEZ. PATIEN TOLERATED WELL. PT STILL ON TRACH MASK AT THIS TIME. AT BEDSIDE.
--- NOTE | 2017-07-06 17:19 | NUR ---
FEEDING TUBE IS SECURED AT 65 CM AT THE LEFT NARE. TUBE FEEDS RESTARTED AT 75 ML/HR.
--- NOTE | 2017-07-06 18:46 | NUR ---
PATIENT BACK TO BED AT THIS TIME. PT REMAINS ON TRACH MASK. PT HAS BEEN ON TRACH MASK SINCE 0900. PT WANTING TO GO BACK TO CPAP WHEN THE ROTARY BAR OPERATOR RT ARRIVES IN HER ROOM. ELMORE EMPTIED FOR 400 ML URINE. CONTINUE TO MONITOR.
--- NOTE | 2017-07-06 19:30 | NUR ---
SHIFT REPORT RECEIVED FROM YONI ALMANZA. AT THIS TIME R.T. IN THE ROOM TO SWITCH PT FROM TRACH MASK TO CPAP.
--- NOTE | 2017-07-06 20:30 | NUR ---
ASSESSMENT COMPLETED. PT IS ALERT/ORIENTED. DENIES PAIN AND NAUSEA. LUNGS COARSE, CPAP IN PLACE, SUCTION PROVIDED. HR IRREGULAR. BOWEL TONES ACTIVE, ABDOMEN APPEARS MILDLY DISTENDED, MIDLINE INCISION APPERS HEALED. IV PATENT, SL. SCD'S PLACED ON PT. FEEDING TUBE PATENT, FLUSHED WITH 50ML WATER, JEVITY FEED @75ML/HR. OFFERED PT ORAL CARE AND SHE STATES SHE WANTS TO WAIT FOR NOW. ELMORE DRAINING FREELY. PT DENIES NEEDS AT THIS TIME, WILL CONTINUE TO MONITOR.
--- NOTE | 2017-07-06 22:00 | NUR ---
IN TO ASSIST R.T. WITH TRACH CARE, SITE CLEANED AND NEW GAUZE PLACED. PT SUCTIONED AND ORAL CARE DONE AT THIS TIME. REMAINS ON CPAP AT THIS TIME. PT DENIES FURTHER REQUESTS, WILL CONTINUE TO MONITOR.
--- NOTE | 2017-07-07 00:10 | NUR ---
ASSESSMENT COMPLETED. PT RESTING, WOKE WHEN I ENTERED ROOM. CONTINUES TO DENY PAIN AND NAUSEA. SUCTIONING PROVIDED, LUNGS SOUND MORE CLEAR AFTERWARD. NO OTHER CHANGES FROM PREVIOUS ASSESSMENT. TUBE FEED CONTINUES AT 75 ML/HR, FLUSHED WITH 50 ML WATER. NO OTHER NEEDS AT THIS TIME, WILL CONTINUE TO MONITOR.
--- NOTE | 2017-07-07 02:34 | NUR ---
PT INCONTINENT OF BM. PERICARE COMPLETED BY CNA. Reich NOW IN ROOM TO CHECK ON PT.
--- NOTE | 2017-07-07 03:00 | NUR ---
IN TO BOOST PT UP IN BED AND PILLOW PLACED UNDER LEGS. SUCTIONING PROVIDED. WILL CONTINUE TO MONITOR.
--- NOTE | 2017-07-07 04:13 | NUR ---
PT SLEEPING AT THIS TIME. NO APPARENT DISTRESS. CPAP IN PLACE, FIO2 40%, RR:20. HR:85. TUBE FEEDING CONTINUES AT 75 ML/HR. ELMORE PATENT, DRAINING FREELY. WILL ALLOW FOR REST AND CONTINUE TO MONITOR.
--- NOTE | 2017-07-07 06:27 | NUR ---
IN TO ADMINISTER 0700 MEDS. FEEDING TUBE FLUSHED WITH 50ML WATER, PATENT. TUBE FEEDING RESUMED. R.T. IN TO ASSESS PT. PT DENIES FURTHER REQUSTS AT THIS TIME, WILL CONTINUE TO MONITOR.
--- NOTE | 2017-07-07 08:24 | NUR ---
PATIENT WHITEBOARD UPDATED, ROOM TIDIED. GOT VS. DOES NOT NEED ANYTHING AT THIS TIME.
--- NOTE | 2017-07-07 08:30 | NUR ---
2PA TO BEDSIDE COMMODE. PATIENT HAD MEDIUM BOWEL MOVEMENT. 2PA TO CHAIR. PERFORMED PARTIAL BEDBATH, SARA CARE/ CATHETER CARE. COMBED PATIENT'S HAIR. CHANGED LINENS ON BED. OFFERED ORAL CARE, SHE STATED SHE HAD ALREADY BRUSHED HER TEETH. NURSE CURRENTLY IN ROOM.
--- NOTE | 2017-07-07 11:16 | NUR ---
PT UP TO BSC THIS A.M. WITH 2 PERSON ASSIST. PT HAD MED SOFT BM, TRANSFERRED TO LEANDER CHAIR. DR. RACHEL IN TO ASSESS PT. R.N. ASSESSMENT COMPLETED, A.M. MEDS GIVEN VIA FEEDING TUBE. FAMILY IN TO VISIT WITH PT. Damir HERE AND SPEAKING VALVE INSURTED IN TRACH, PT ABLE TO SPEAK WITH FAMILY MEMEBERS.
--- NOTE | 2017-07-07 12:22 | NUR ---
FAMILY IN ROOM AND LEFT SO PT CAN GET UP TO BSC. PT ASSISTED UP WITH ONE PERSON ASSIST AND HAD SMALL SOFT BROWN BM, NON FORMED. PT RETURNED TO LEANDER CHAIR WITH ONE PERSON ASSIST. FAMILY RETURNED TO ROOM TO BE WITH PT. ASSESSMENT COMPLETED.
--- NOTE | 2017-07-07 13:22 | NUR ---
R.T. HERE, SUCTIONED PT AND CLEANED INNER CANULA. PT REMAINS UP IN LEANDER CHAIR.
--- NOTE | 2017-07-07 14:23 | NUR ---
I/O COMPLETED, FAMILY REMAINS IN ROOM WITH PT WATCHING TV.
--- NOTE | 2017-07-07 15:16 | NUR ---
EMPTIED ELMORE CATHETER. 700ML.
--- NOTE | 2017-07-07 15:22 | NUR ---
DR. RACHEL IN TO ASSESS PT AND TALK TO FAMILY MEMBERS CONCERNING CONTINUED PLAN OF CARE.
--- NOTE | 2017-07-07 15:46 | NUR ---
PT TAKING SMALL SIPS OF VANILLA ENSURE MILKSHAKE. INEZ WELL.
--- NOTE | 2017-07-07 16:52 | NUR ---
ASSESSMENT COMPLETED AND LUNGS WITH COARSE SOUNDS, R.T. NOTIFIED AND PT SUCTIONED, LUNGS CLEAR AT THIS TIME. R.T. TALKED TO PT AND FAMILY ABOUT INFLATING AND DEFLATING THE TRACH BALLOON TO USE THE SPEAKING VALVE. PICTURES OF ANATOMY OF THROAT SHOWN TO PT AND FAMILY.
--- NOTE | 2017-07-07 18:07 | NUR ---
NURSE IN ROOM
--- NOTE | 2017-07-07 19:10 | NUR ---
SHIFT REPORT RECEIVED FROM YONI SALAMANCA. PT HAS MULTIPLE FAMILY MEMBERS IN ROOM AT THIS TIME. 10L VIA TRACH MASK IN PLACE. WILL CONTINUE TO MONITOR.
--- NOTE | 2017-07-07 20:40 | NUR ---
ASSESSMENT COMPLETED. PT IS ALERT/ORIENTED, DENIES PAIN AND NAUSEA. LUNGS SOUND COARSE AND DIM, TRACH MASK WITH 10L IN PLACE, SUCTIONING PROVIDED THOUGH PT REMAINS COARSE SOUNDING. HR IRREGULAR. BOWEL TONES ACTIVE. MIDLINE INCISION HEALED, ABDOMEN APPEARS MILDLY DISTENDED. FEEDING TUBE PATENT, FLUSHED WITH 50ML WATER AFTER ADMINISTERING MEDICATIONS. JEVITY 1.5 RUNNING AT 75 ML/HR. ELMORE PATENT, DRAINING FREELY. EDEMA PRESENT IN BLE, THOUGH IT APPEARS IMPROVED FROM YESTERDAY. SCD'S IN PLACE. PT DENIES NEEDS AT THIS TIME, WILL CONTINUE TO MONITOR.
--- NOTE | 2017-07-07 22:48 | NUR ---
SUCTIONING DONE. R.T. IN ROOM TO CHANGE INNER CANNULA OF TRACH.
--- NOTE | 2017-07-08 00:18 | NUR ---
ASSESSMENT COMPLETED. PT RESTING, DENIES PAIN AND NAUSEA. TOLERATING BIPAP, LUNGS SOUND COARSE AND DIM. FEEDING TUBE FLUSHED WITH 50ML WATER. NO OTHER CHANGES FROM PREVIOUS ASSESSMENT. WILL CONTINUE TO MONITOR.
--- NOTE | 2017-07-08 00:30 | NUR ---
R.T. IN ROOM TO PROVIDE SUCTIONING.
--- NOTE | 2017-07-08 01:21 | NUR ---
PT REPOSITIONED UP IN BED, DENIES FURTHER NEEDS.
--- NOTE | 2017-07-08 02:15 | NUR ---
IN TO DO I&O'S, PT IS AWAKE, RESTING IN BED. PT SUCTIONED PER REQUEST. DENIES FURTHER NEEDS AT THIS TIME.
--- NOTE | 2017-07-08 04:15 | NUR ---
ASSESSMENT COMPLETED. NO CHANGES FROM PREVIOUS ASSESSMENT. R.T. IN TO PROVIDE SUCTIONING. PT BOOSTED UP IN BED. DENIES NEEDS AT THIS TIME.
--- NOTE | 2017-07-08 06:25 | NUR ---
MORNING MEDS GIVEN THROUGH FEEDING TUBE AND THEN TUBE FLUSHED WITH 50ML WATER, PATENT. RAMÍREZ PATENT, UO QS. SUCTIONING DONE PER REQUEST. LAB NOW IN ROOM TO DRAW BLOOD SAMPLE.
--- NOTE | 2017-07-08 08:29 | NUR ---
PT AWAKE, PLACED ON TRACH MASK AND ASSISTED TO BSC, PT HAD SMALL SOFT BROWN BM AND TRANSFERRED TO LEANDER CHAIR USING THE WALKER AND ONE PERSON ASSIST. ASSESSMENT COMPLETED - PT DENIES DISCOMFORT BUT STATES "I'M TIRED". FAMILY MEMBER IN ROOM TO VISIT WITH PT.
--- NOTE | 2017-07-08 09:27 | NUR ---
SALINE LOCK LEAKING AND PT C/O DISCOMFORT. SALINE LOCK DC'D WITH CATH INTACT, NO REDNESS NOTED AT SITE.
--- NOTE | 2017-07-08 10:34 | NUR ---
22 GAUGE SALINE LOCK INSERTED IN LEFT FA ON 3RD ATTEMPT. PT INEZ WELL. SALINE LOCK FLUSHED WITH 10 MLS NS. PT RESTING IN LEANDER CHAIR AND FAMILY IN TO VISIT.
--- NOTE | 2017-07-08 12:02 | NUR ---
PT RESTING IN LEANDER CHAIR, ASSESSMENT COMPLETED. DENIES C/O AT THIS TIME. PHYSICAL THERAPY HERE TO WORK WITH PT BUT PT ASKED TO WAIT FOR AN HOUR. PT TIRED AND DID NOT SLEEP WELL LAST NIGHT. PT SLEEPING IN CHAIR A FEW MINUTES AFTER PHYSICAL THERAPY LEFT.
--- NOTE | 2017-07-08 13:55 | NUR ---
PT ATE A FEW BITES OF MASHED POTATOES AND GRAVY - INEZ WELL. R.T. IN TO CHECK PT. SUCTIONED SMALL AMT OF SECREATIONS, NO FOOD PARTICLES. SATS REMAIN 98-99% IN 10L FLOW AT 35% FI02. PT REMAINS UP IN LEANDER CHAIR. DR. GOMEZ IN TO TALK WITH PT AND FAMILY MEMBERS.
--- NOTE | 2017-07-08 14:13 | NUR ---
PHYSICAL THERAPY HERE AND PT AMBULATED IN ROOM AROUND BED AND BACK TO LEANDER CHAIR. PT RESTED A FEW MINUTES AND CONTINUED WITH PHYSICAL THERAPY FOR STRENGHTHENING. I/O'S COMPLETED.
--- NOTE | 2017-07-08 15:48 | NUR ---
ASSESSMENT COMPLETED PT UP TO BSC BUT UNABLE TO HAVE BM AT THIS TIME. STATES "IT WAS A FALSE ALARM". PT RETURNED TO LEANDER CHAIR WATCHING TV.
--- NOTE | 2017-07-08 18:00 | NUR ---
PT AMBULATED IN ROOM WITH WALKER PER REQUEST. PT OFF TRACH MASK TO AMBULATE AND INEZ WELL. PT RETURNED TO LEANDER CHAIR, IN ROOM. PT RESTING IN CHAIR WATCHING TV WITH .
--- NOTE | 2017-07-08 19:27 | NUR ---
SHIFT REPORT RECEIVED FROM YONI SALAMANCA. PT UP TO SCALE WITH 1-PA, STANDING WEIGHT: 131.8. PT RETURNED TO BED. TRACH MASK IN PLACE. RAMÍREZ GONG. CALL LIGHT WITHIN REACH, WILL CONTINUE TO MONITOR.
--- NOTE | 2017-07-08 19:53 | NUR ---
ASSESSMENT COMPLETED. ALERT/ORIENTED. DENIES PAIN AND NAUSEA. LUNGS CLEAR, DIM IN BASES, TRACH MASK WITH 10L O2 IN PLACE. HR IRREGULAR. BOWEL TONES ACTIVE, ABDOMEN FEELS MILDLY DISTENDED. MIDLINE INCISION IS HEALED. IV PATENT, SL. EDEMA IN BLE GREATLY IMPROVED FROM YESTERDAY, 1+. CMS INTACT. SLIGHT RASH TO BACK. ELMORE PATENT, DRAINING CLEAR YELLOW URINE. FEEDING TUBE IN PLACE, JEVITY 1.5 RUNNING AT 75 ML/HR. SCD'S IN PLACE. PT HAS CALL LIGHT WITHIN REACH, DENIES NEEDS AT THIS TIME. WILL CONTINUE TO MONITOR.
--- NOTE | 2017-07-08 20:37 | NUR ---
IN TO GIVE EVENING MEDS, FEEDING TUBE FLUSHED WITH 50ML WATER AFTERWARD. FEEDING TUBE PATENT, FLUSHES EASILY. PT REQUESTS LIGHTS TURNED OFF AND DENIES FURTHER NEEDS. WILL CONTINUE TO MONITOR.
--- NOTE | 2017-07-08 20:53 | NUR ---
RYarielTYariel IN ROOM TO CHECK ON PT, HE PROVIDED SUCTIONING AT THAT TIME. PT BOOSTED UP IN BED. NEW TAPE PLACED TO SECURE FEEDING TUBE. PT DENIES FURTHER NEEDS, LIGHTS OFF, CALL LIGHT IN REACH.
--- NOTE | 2017-07-08 21:56 | NUR ---
PT RESTING WITH EYES CLOSED, NO APPARENT DISTRESS. 10L O2 VIA TRACH MASK IN PLACE, RESPIRATIONS EVEN AND UNLABORED, RR:21. HR:85. WILL CONTINUE TO MONITOR.
--- NOTE | 2017-07-08 23:27 | NUR ---
PT CONTINUES TO REST WITH EYES CLOSE, NO APPARENT DISTRESS. RR:18, TRACH MASK IN PLACE. WILL ALLOW FOR REST AND CONTINUE TO MONITOR.
--- NOTE | 2017-07-08 23:54 | NUR ---
ASSESSMENT COMPLETED. PT AWAKE, REQUESTS SUCTIONING, R.T. CALLED AND HE PROVIDED SUCTIONING AND SWITCHED HER TO BIPAP, FIO2: 40%. PT ALSO REPORTS 7/10 HEADACHE PAIN, PRN TYLENOL ADMINISTERED. LUNGS SOUND CLEAR. NO OTHER CHANGES FROM PREVIOUS ASSESSMENT. FEEDING TUBE FLUSHED WITH 50ML WATER AFTER MEDICATION ADMINISTRATION. PT DENIES FURTHER REQUESTS AT THIS TIME. WILL CONTINUE TO MONITOR.
--- NOTE | 2017-07-09 01:18 | NUR ---
PT CALLED AND NEEDED TO HAVE BM. UP TO BSC WITH 1-PA AND FWW. PT HAD 1 SMALL SOFT BM. BED BATH GIVEN, NEW GOWN AND NEW BED LINENS PROVIDED. PT THEN RETURNED TO BED. PT REQUESTS SUCTIONING, PROVIDED. PT STATES THAT "IT FEELS THE SAME." R.T. CALLED AND ASKED TO CLEAN INNER CANNULA. IN-LINE SUCTION TUBE CHANGED. PT BACK ON BIPAP NOW. TUBE FEED RECONNECTED AND RUNNING AT 75 ML/HR. ELMORE PATENT, CATH CARE DONE. PT DENIES FURTHER REQUESTS AT THIS TIME, WILL CONTINUE TO MONITOR.
--- NOTE | 2017-07-09 03:03 | NUR ---
CHECKED IN ON PT WHO IS RESTING IN BED. BIPAP IN PLACE, RESPIRATIONS EVEN AND UNLABORED, RR:16. PT STATES THAT HER HEADACHE PAIN IS BETTER. SHE DENIES NEEDS AT THIS TIME.
--- NOTE | 2017-07-09 03:56 | NUR ---
ASSESSMENT COMPLETED. PT RESTING, BUT AWAKE. LUNGS REMAIN CLEAR, BIPAP IN PLACE, SUCTIONING PROVIDED PER REQUEST. FEEDING TUBE FLUSHED WITH 50ML FRESH WATER, FEEDING RUNNING AT 75 ML/HR. ELMORE PATENT, DRAINING FREELY. DENIES NEEDS.
--- NOTE | 2017-07-09 05:25 | NUR ---
R.T. IN ROOM TO PROVIDE SUCTIONING AND TRACH CARE.
--- NOTE | 2017-07-09 09:44 | NUR ---
PT AWAKE, OFF BIPAP AND TRACH MASK ON AT10L AND FI02 35%. SPONGE BATH GIVEN AND PT STOOD AT BEDSIDE ON STANDING SCALE - WEIGHT 131.8 LBS. PT TO LEANDER CHAIR AND A.M. MEDS GIVEN, SMALL PILLS WERE ABLE TO BE TAKEN BY MOUTH. LARGER PILLS CRUSHED AND GIVEN VIA FEEDING TUBE. PT UP TO [facility] [place] AND HAD MED SOFT BROWN BM THEN RETURNED TO LEANDER CHAIR WITH MINIMAL ASSIST. DAUGHTER IN TO VISIT WITH PT AND DR. CARLSON IN TO ASSESS PT AND TALK TO THEM BOTH ABOUT THE PLAN OF CARE FOR TODAY.
--- NOTE | 2017-07-09 10:36 | NUR ---
PT UP TO BSC WITH ONE PERSON ASSIST AND HAD SMALL SOFT BROWN BM [HEME TEST NEG]. PT RETURNED TO LEANDER CHAIR WITH MINIMAL ASSIST. RESTING IN CHAIR VISITING WITH FAMILY MEMEBERS.
--- NOTE | 2017-07-09 12:24 | NUR ---
PHYSICAL THERAPY HERE TO WORK WITH PT. PT INEZ WELL BUT STATES BEING TIRED. R.T. HERE TO CHECK TRACH.
--- NOTE | 2017-07-09 13:16 | NUR ---
PT C/O FEELING MORE SOB. SATS 95-96% ON TRACH MASK. R.T. NOTIFIED AND HERE TO CHANGE INNER CANULA.
--- NOTE | 2017-07-09 13:33 | NUR ---
PT ATE APPROX 5 SPOONS OF SOUP AND DRANK A FEW SIPS OF APPLE JUICE.
--- NOTE | 2017-07-09 16:42 | NUR ---
ASSESSMENT COMPLETED, NO C/O OF DISCOMFORT AT THIS TIME. FAMILY IN ROOM AND VISITING WITH PT. PT ALSO READING THE PAPER. PT IN GOOD SPIRITS AT THIS TIME.
--- NOTE | 2017-07-09 17:46 | NUR ---
PT TRANSFERRED TO BSC WITH ASSIST BUT UNABLE TO HAVE BM AT THIS TIME. PT THEN TRANSFERRED TO BED PER PT REQUEST. PT HAD A SIP OF WINE AND 2 BITES OF COTTAGE CHEESE, INEZ WELL. FAMILY AT BEDSIDE WATCHING TV WITH PT.
--- NOTE | 2017-07-09 19:45 | NUR ---
PT SHIFT REPORT RECIVED FROM DAY SHIFT RN. ALL QUESTIONS ANSWERED. PT RESTING IN BED AT THIS TIME. RT IN AND CHANGED PT FROM TRACH MASK TO BIPAP. WILL CONTINUE TO CLOSELY MONITOR.
--- NOTE | 2017-07-09 20:30 | NUR ---
PT SHIFT ASSESSMENT COMPLETED. PT RESTING IN BED AT THIS TIME. PT IS ON BIPAP. BREATH SOUNDS CLEAR AND DIMINISHED IN BASES. IMRPVOES WITH COUGH. PT ABLE TO USE SUCTION IN MOUTH. BOWEL TONES ACTIVE. ABD MILDLY DISTENDED. EDEMA IN BLE IS 1+. EDEMA IS IMPROVING. CALL LIGHT IN HAND. WILL CONTINUE TO CLOSELY MONITOR.
--- NOTE | 2017-07-09 21:15 | NUR ---
PT REPOSITIONED IN BED WITH PILLOW SUPPORT. PT RESTING ON SIDE AT THIS TIME. CALL LIGHT IN HAND. WILL ENCOURAGE SLEEP AT THIS TIME. WILL CONTINUE TO MONITOR.
--- NOTE | 2017-07-09 23:47 | NUR ---
PT REPOSITIONED IN BED WITH PILLOW SUPPORT. PT HAS NOT RESTED WELL SO FAR IN THIS SHIFT. PT SLEPT FOR APROX 1 HOUR AT THE START OF SHIFT AND HAS REMAINED RESTLESS SINCE THEN. LIGHTS ARE DIMMED. TV OFF. STIMULATION DECREASED. REASSURED PT WE ARE MONITORING PT CLOESLY ON THE MONITORS. PT RR-18 SPO2 100% PT ON BIPAP AT 40% FIO2 WITH SUPPORT 15/5. WILL CONTINUE TO CLOSELY MONITOR.
--- NOTE | 2017-07-10 00:16 | NUR ---
PT CALLED AND STATED SHE FELT LIKE IT WAS DIFFICULT TO BREATH. REASSURED PT ALL HER NUMBERS LOOKED GOOD. SPO2 100% RR 20. SUCTIONED PT WITH NO SPUTUM RETURN. CALLED RT. RT WAS UNAVAILABLE. SPOKE WITH PT REGURDING WHAT ELSE WE COULD TRY. PT STATES IT JUST MAKES HER NERVOUS AND SHE FEELS CONGESTED. CHANGED THE INNER CANUAL AND GAVE IT A FEW MINUTES. PT FELL RIGHT ASLEEP. WILL CONTINUE TO CLOSELY MONITOR.
--- NOTE | 2017-07-10 02:00 | NUR ---
PT CALLED TO USE CAMMODE. ASSISTED PT UP TO CAMMODE. PT TOLERATED WELL. HELPED PT WASH HER FACE WHILE SHE WAS UP. NEW LINEN AND ATTENDS PLACE. ELMORE CATH CARE PROVIDED. PT ASSISTED BACK TO BED. PT SUCTIONED WITH THIN SPUTUM PRESENT. CALLED RT TO COMPLETE TRACH CARE WHILE PT WAS AWAKE TO ALLOW PT TO REST AFTERWARDS. WILL CONTINUE TO CLOSELY MONITOR. CALL LIGHT IN HAND.
--- NOTE | 2017-07-10 04:15 | NUR ---
PT REMAINS RESTLESS. ENCOURAGED PT TO REST HER EYES AND GET SOME SLEEP. WILL CONTINUE TO MONITOR.
--- NOTE | 2017-07-10 08:15 | NUR ---
CXR COMPLETED, PT CHANGED TO TRACH MASK AND UP TO BSC. HAD SMALL SOFT BROWN BM AND TRANSFERRED TO [facility] CHAIR. PT COMPLETED ORAL CARE.
--- NOTE | 2017-07-10 08:23 | NUR ---
PER RN PT IS ON A FULL LIQUID DIET. BREAKFAST HAS BEEN ORDERED.
--- NOTE | 2017-07-10 10:41 | NUR ---
FAMILY IN TO VISIT WITH PT AND DR. GOMEZ ALSO IN TO TALK WITH PT AND FAMILY MEMBERS. PT ATE A FEW BITES OF FULL LIQ BREAKFAST. TALKING VALVE IN PLACE AND PT ABLE TO COMMUNICATE WITHOUT PROBLEMS. A.M. MEDS GIVEN PER FEEDING TUBE BUT PT ABLE TO SWALLOW LOPRESSOR 12.5 MG WITHOUT DIFFICULTY. SPONGE BATH GIVEN.
--- NOTE | 2017-07-10 13:07 | NUR ---
PT ATE APPROX 4 BITES OF SOUP FOR LUNCH, FAMILY IN ROOM. PHYSICAL THERAPY HERE AND PT AMBULATED OUT OF ROOM TO HALLWAY. PT TURNED AROUND AND AMBULATED BACK TO [facility] CHAIR.
--- NOTE | 2017-07-10 13:51 | NUR ---
PT SITTING IN CHAIR, LOOKED VERY TIRED. BY HER SIDE. SHE SPOKE TO ME-SPEAKING VALVE PLACED IN TRACH OVER THE WEEKEND. SHE IS TOLERATING WELL. SHE TOLD ME TO TELL JUSTEN HE DID NOT NEED TO COME TODAY. SHE IS WORRIED ABOUT FLU GOING AROUND. I MISSED HIM AND HE CAME IN. WILL FOLLOW NEEDED
--- NOTE | 2017-07-10 14:15 | NUR ---
ASSESSMENT COMPLETED - PT RESTING IN [facility] CHAIR, FAMILY IN ROOM ALL WATCHING TV. I/O'S COMPLETED.
--- NOTE | 2017-07-10 15:15 | NUR ---
PT RESTING IN CHAIR WATCHING TV WITH FAMILY. SCD'S WERE APPLIED. NO NEEDS AT THIS TIME. CALL LIGHT IS IN REACH.
--- NOTE | 2017-07-10 15:26 | NUR ---
PATIENT HAD A NEW FEEDING TUBE PLACED ON SUNDAY, . SHE WENT BACK TO RECEIVING JEVITY 1.5 FORMULA AT 75 ML/HR AND IS TOLERATING WELL. WEIGHT TODAY WAS 132 LBS. APPARENTLY HER "DRY WEIGHT" IS IN THE 120'S PER DR. GOMEZ'S NOTE. SHE IS NOW ABLE TO EAT FULL LIQUIDS. REMERON IS A NEW MED TO HELP INCREASE APPETITE AND TO TREAT DEPRESSION. PREALBUMIN IS PENDING. BNP WAS 1,010 TODAY WHICH IS HIGH. SHE IS CONTINUING TO RECEIVE 50 ML WATER FLUSHES EVERY 4 HOURS. GLUCOSE 128 TODAY. WILL CONTINUE TO FOLLOW.
--- NOTE | 2017-07-10 18:37 | NUR ---
ASSESSMENT COMPLETED AT 1630. PT RESTING IN LEANDER CHAIR WITH FAMILY IN ROOM. DR. GOMEZ IN TO TALK WITH PT AND FAMILY MEMBERS. PLAN IS TO KEEP TRACH COLLAR ON THROUGH THE NIGHT. SLEEP MEDS ORDERED FOR THIS EVENING, PT HAS NOT BEEN ABLE TO SLEEP THE LAST FEW NIGHTS.
--- NOTE | 2017-07-10 19:30 | NUR ---
PT SHIFT ASSESSMENT COMPLETED. PT RESTING IN BED AT THIS TIME ON TRACH MASK. PT DENIES ANY ISSUES AT THIS TIME. WILL CONTINUE TO MONITOR.
--- NOTE | 2017-07-10 21:00 | NUR ---
ALL PT TASKS COMPLETED. ASSISSTED PT WITH NIGHT TIME ACTIVITIES SUCH WASHING HER FACE AND BRUSHING HER TEETH. PT REMAINS ON TRACH MASK AND SEEMS MORE RELAXED THIS EVENING. GOAL IS TO KEEP PT ON TRACH MASK THROUGHOUT THE NIGHT. WILL CONTINUE TO ENCOURAGE PT AND MONITOR ARIWAY. PT ASSESSMENT COMPLETED. WITH LUNG SOUNDS CLEAR. BOWEL TONES ACTIVE AND ABD MILDLY DISTENDED. CALL LIGHT IN HAND. WILL CONTINUE TO CLOSELY MONITOR.
--- NOTE | 2017-07-10 22:30 | NUR ---
PT RESTING IN BED. PT SPO2 OFF AND ARTIFACT ON TELE ENTERED ROOM TO PLACE SPO2 BACK ON PT. PT AWAKE AND ASKIN TO BE REPOSITIONED. PT IS ABLE TO MOVE IN BED ON OWN BUT UNABLE TO GET BACK UP IN BED. PT DENIES ANY OTHER NEEDS AT THIS TIME. SPO2 100% ON TRACH MASK AND RR 22. WILL CONTINUE TO CLOSELY MONITOR.
--- NOTE | 2017-07-10 23:39 | NUR ---
NOTICED PT HAD ARTIFACT PRESENT ON TELEMETRY FOR APROX 5-10 MINUTES. ENTERED ROOM AND PT AWAKE. PT SLID DOWN IN BED AGAIN. REPOSITIONED AND BOOSTED PT UP IN BED. PT MORE COMFORTABLE NOW. WILL CONTINUE TO CLOSELY MONITOR.
--- NOTE | 2017-07-11 01:14 | NUR ---
PT REMAINS ON TRACH MASK. PT CONTINUES TO TOLERATE IT WELL. PT STATES SHE FEELS SHE IS BREATHING WELL. PT HAS SPEAKING VALVE ON AND IS ABLE TO COMMUNICATE MUCH BETTER THIS PM. PT HAS CALL LIGHT IN HAND. WILL CONTINUE TO CLOSELY MONITOR.
--- NOTE | 2017-07-11 01:38 | NUR ---
PT CALLED TO GET UP TO CAMMODE. PT ASSISSTED UP. PT UNABLE TO HAVE BM BUT PASSED GAS. BEDDING AND ATTENDS CHANGED AND ELMORE CATH CARE DONE. PT ASSISTED BACK TO BED. REPOSITIONED TO SIDE WITH PILLOW SUPPORT. WILL CONITNUE TO CLOSELY MONITOR. CALL LIGHT IN HAND.
--- NOTE | 2017-07-11 02:15 | NUR ---
PT RESTING OFF AND ON AT THIS TIME. PT SEEMS MORE RESTFUL AFTER GETTING UP TO THE CAMMODE. WILL CONTINUE TO MONITOR.
--- NOTE | 2017-07-11 03:00 | NUR ---
PT AWAKE OFF AND ON. PT NOTED TO BE SITTING UP IN BED BY OTHER RN. PT REORIENTED AND PT LAID BACK DOWN TO REST. PT HAS ASKED QUESTIONS SUCH HOW WAS YOUR VACATION WHEN THE STAFF MEMBER HAD NOT TAKEN A VACTION. PT LATER WAS ASKED WHERE SHE WAS AND WHY ETC AND PT WAS ABLE TO ANSWER ALL QUESTIONS CORRECTLY, WILL CONTIUE TO CLOSELY MONITOR PT AT THIS TIME.
--- NOTE | 2017-07-11 04:06 | NUR ---
PT CALLED TO GET UP TO CAMMODE. PT HAD SMALL BM. PT TOLERATED WELL AND ASSISTED BACK TO BED. VITALS COMPLETED WHILE PT WAS AWAKE. PT NOW RESTING AT THIS TIME WITH CALL LIGHT IN HAND. WILL CONTINUE TO CLOSELY MONITOR.
--- NOTE | 2017-07-11 05:31 | NUR ---
PT HR UP TO 115. ENTERED ROOM AND PT SITTING UP IN BED. ASKED PT WHAT SHE WAS TRYING TO DO AND WHAT I COULD DO TO HELP. SHE SAID SHE WAS GETTING UP TO GO TAKE A [place]YICK SHOWER. I THEN ASKED PT IF SHE KNEW WHERE SHE WAS, WHY SHE WAS HERE, ETC. PT WAS ABLE TO ANSWER ALL QUESTIONS CORRECTLY. PT STATED SHE THOUGHT SHE COULD DO IT ON HER OWN SINCE SHE IS GETTING STRONGER. REDUCATED PT SHE CANT GET UP WITHOUT A STAFF MEMBER PRESENT D/T STRENGTH AND THE AMOUNT OF TUBES AND WIRES PRESENT AT THIS TIME. PT IS UNDERSTANDING OF THIS. SHE WANTS TO SET HER GOAL FOR TODAY OF TAKING A SHOWER. RT WILL BE IN TO DO BLOOD GAS THIS AM. PT BED IN LOWEST POSITION. CALL LIGHT IN HAND. LEFT PT CURTAIN OPEN FOR PT SAFETY. WILL CONTINUE TO CLOSELY MONITOR.
--- NOTE | 2017-07-11 06:11 | NUR ---
MD GOMEZ CALLED FOR AM UPDATE. UPDATED THAT PT REMAINED ON TRACH MASK ALL NIGHT AND TOLERATED IT WELL. ABG DONE THIS AM AND UPDATED THAT PT IS HAVING INTERMITENT CONFUSION. ABG RESULTS READ TO MD. PER MD PLACE BACK ON BIPAP 15/5 AT 40% FIO2 FOR 2 HOURS AND THEN REPEAT ABG AND CALL MD WITH UPDATES. WILL CONTINUE TO CLOSELY MONITOR.
--- NOTE | 2017-07-11 08:20 | NUR ---
RT IN ROOM DRAWING REPEAT ABG AT THIS TIME. PT HAS BEEN ON BIPAP SINCE AROUND 0615 AFTER ABG RESULTS SHOWED AN ELEVATED C02 OF 69. PATIENT SEEMS SLIGHTLY CONFUSED THIS AM, FOR EXAMPLE, WHEN ASKED PATIENT WHAT YEAR IT IS, SHE REPONDS WITH "NOVEMBER." PATIENT ALSO UNABLE TO STATE THE CORRECT YEAR. PATIENT HAS ALSO REPORTEDLY BEEN ATTEMPTING TO GET UP AND OUT OF BED THIS AM WITHOTU CALLING FOR HELP, WHICH IS ABNORMAL FOR THIS PATIENT. PT IS STRONGER THAN SHE HAS BEEN, AND ABLE TO MOVE AROUND WELL. TUBE FEEDS REMAIN INFUSING AT 75 ML/HR INTO LEFT NARE DOBBHOFF FEEDING TUBE. PT TOLERATING THESE TUBE FEEDS WELL. CONTINUE TO MONITOR CLOSELY.
--- NOTE | 2017-07-11 09:21 | NUR ---
ABG RESULT IS BACK AND SHOWS A CO2 OF 48 AND A PH OF 7.47 NOW. PATIENT SLEEPY, AND NOTED TO BE DOZING OFF IN THE BED. PATIENT ASKED IF SHE WANTS TO TAKE A REST AND SHE NODS HEAD YES. SP02 99% AT THIS TIME. PT REMAINS ON BIPAP. PLAN TO LET PATIENT REST SOME THIS AM SINCE SHE DID NOT HAVE A RESTFUL NIGHT. PT'S IN ROOM, AND DAUGHTER STARR IN WAITING ROOM. CONTINUE TO MONITOR.
--- NOTE | 2017-07-11 10:12 | NUR ---
PT RESTING ON BI PAP. CO2 ABELARDO LAST NIGHT. WILL LET PT REST, CHECKED WITH DAUGHTER, SHE IS CONCERNED THAT HER DAD IS NOT GETTING ENOUGH REST. WILL SUGGEST HE REST WHEN SHE IS RESTING-MAKYBE NAPPING AT HOME. WILL CONTINUE TO FOLLOW
--- NOTE | 2017-07-11 11:40 | NUR ---
PATIENT GIVEN FULL BED BATH, LINEN CHANGED, AND HELPED UP TO CHAIR. PT AMBULATED IN ROOM, AND EVEN OUT INTO THE HALLWAY A FEW STEPS WITH THE WALKER. PT TOLERATED THIS ACTIVITY VERY WELL AND DID NOT BECOME SHORT OF BREATH, BUT FATIGUED AFTER THE ACTIVITY. PT'S TRACH CARE PERFORMED BY RT. PT SUCTIONED WELL AND A LOT OF THICK SECRETIONS WERE SUCTIONED OUT PER RT. PATIENT WEIGHED ON STANDING SCALE AND FOUND TO BE 118.5 LB TODAY. PATIENT REMAINS IN AFIB, AND HR RUNNING IN THE 80-90s. ELMORE DRAINING DILUTE YELLOW URINE IN COPIOUS AMOUNTS, DUE TO THE LASIX THAT WAS GIVEN EARLIER. PT NOW SITTING IN CHAIR WITH LEGS ELEVATED AND FAMILY AT HER SIDE. PT IN GOOD SPIRITS. PLAN TO ALLOW PT TO REST FOR A WHILE NOT IN CHAIR. SPEAKING VALVE PLACED AT 1130. PT TO NOT HAVE SPEAKING VALVE IN PLACE WHEN TRYING TO SLEEP. TRACH MASK ON PATIENT AT 10 L. PT BREATHING COMFORTABLY. CONTINUE TO MONITOR.
--- NOTE | 2017-07-11 13:43 | NUR ---
DR. GOMEZ IN TO SEE PATIENT AT 1215. DECISION MADE TO PERFORM THORACENTESIS ON PATIENT. DR. GOMEZ PERFORMED THIS AROUND 1300. PT TOLERATED WELL. MINIMAL FLUID WAS EVACUATED FROM THE PLEURAL SPACE. CHEST XRAY TAKEN AROUND 1305 AND PLAN TO HAVE A REPEAT CHEST XRAY AT 1500 TO EVALUATE FOR PNEUMOTHORAX. PT TOLERATED PROCEDURE WELL AND DENIES SHORTNESS OF BREATH. SP 02 REMAINS >96% ON THE TRACH MASK. PT HAS SPEAKING VALVE IN STILL AT THIS TIME. PT WANTING TO GET UP OUT OF BED AND INTO CHAIR. PT IS A ONE PERSON ASSIST TO CHAIR AND INEZ MOVING WELL. PT STOPPED BY TO WORK WIHT PATIENT BUT PATIENT REFUSING PHYS THERAPY AT THIS TIME AND DAY. OF NOTE, PATIENT DID AMBULATE INTO HALLWAY EARLIER, AND HAS BEEN UP TO BED AND BACK TO CHAIR 2 TIMES TODAY. PT WANTING TO REST WHICH IS APPROPRIATE S/P THORACENTESIS. NEW IV PLACED IN RIGHT FOREARM AND OLD IV D/C IN LEFT FOREARM. PT TOLERATED WELL. ELMORE DRAINING CLEAR YELLOW URINE AFTER NEXT DOSE OF LASIX WAS RECENTLY GIVEN. CONTINUE TO MONITOR.
--- NOTE | 2017-07-11 15:04 | NUR ---
2nd CHEST XRAY DONE AT THIS TIME. PT TOLERATED WELL. PT UP TO BSC TO HAVE A BM WHICH WAS FORMED, DARK GREEN IN COLOR, AND THICK. PATIENT NOW SITTIGN BACK IN CHAIR WITH FAMILY AT BEDSIDE. WAITING RESULT OF CHEST XRAY WHICH WILL THEN BE REPORTED TO DR. GOMEZ.
--- NOTE | 2017-07-11 15:29 | NUR ---
REPEAT CHEST XRAY SHOWED SLIGHT INCREASE IN PNEUMOTHORAX. PATIENT DENIES FEELING SHORT OF BREATH. DR. GOMEZ CALLED AND MESSAGE LEFT ON CELL AND WITH HIS OFFICE TO CALL BACK. PT IS SITTING IN CHAIR AND SP02 IS 97% ON THE TRACH MASK STILL. CONTINUE TO MONITOR CLOSELY.
--- NOTE | 2017-07-11 17:12 | NUR ---
CHEST XRAY DONE AT 1700. PT REMAINS SITTING IN CHAIR AND STILL DENIES ANY SHORTNESS OF BREATH AT THIS TIME. SP02 IS 99% ON 10 L TRACH MASK. PT NOW EATING SOME BITES OF MARTINIQUAIS YOGURT. PATIENT'S CUFF INFLATED ON TRACH MASK PRIOR TO ALLOWING PATIENT TO EAT. CONTINUE TO MONITOR CLOSELY. PENDING CHEST XRAY RESULTS AND WILL CALL THEM TO DR. GOMEZ.
--- NOTE | 2017-07-11 17:34 | NUR ---
PATIENT TOLERATED SWALLOWING PILLS WITHOUT DIFFICULTY. PT NOW NEEDING TO USE COMMODE.
--- NOTE | 2017-07-11 18:18 | NUR ---
DR. GOMEZ CALLED AND UPDATED WITH THE MOST RECENT CHEST XRAY RESULTS, THAT SHOWED THAT THE PNEUMOTHORAX HAD LITTLE TO NO CHANGE FROM PREVIOUS CHEST XRAY AT 1500. PER REPORT, IT STATED THE AREA OF A PNEUMO HAD LOOKED TO DECREASE BY 0.5 CM FROM PREVIOUS REPORT. PLAN FOR THE REST OF THE NIGHT IS TO HAVE PATIENT WEAR THE TRACH MASK AND SLEEP WITH THE TRACH MASK, AND NOT TO HAVE THE SPEAKING VALVE IN AT NIGHT TIME. IF THE PATIENT FOR SOME REASON DOES NOT TOLERATE THIS DURING THE NIGHT, THEN DR. GOMEZ IS TO BE NOTIFIED AND AN ABG WILL BE PERFORMED. ABG AND CHEST XRAY ARE ORDERED FOR THE MORNING IT IS. ALL OF THIS INFORMATION WAS DISCUSSED WITH THE PATIENT, HER , AND HER TWO DAUGHTERS WHO ARE IN THE ROOM AND ATTENTIVE TO PATIENT. CONTINUE TO MONITOR.
--- NOTE | 2017-07-11 18:54 | NUR ---
SPOKE TO FAMILY THIS MORNING WHEN THEY WERE CONCERNED OF "IS MY MOM DYING?" THE DAUGHTER WAS ASKING ABOUT WHAT COULD HAVE HAPPENED TO HER THROUGHOUT THE NIGHT AND WHY SHE WAS DOING WORSE THAN THE NIGHTS BEFORE. I MENTIONED I DID NOT BELIEVE SHE WAS DYING AND THAT SHE IN FACT WAS DOING A GREAT JOB ON THE TRACH MIST COLLAR BUT WE COULD TRY SOMETHING DIFFERENT TONIGHT BY MAKING SURE THE PASSY-HERLINDA VALVE WAS OFF BY ABOUT 8PM RATHER THAN LEAVING IT ON WHILE SHE WAS AWAKE THROUGHOUT THE NIGHT. I STATED THAT I WAS NOT 100% SURE WHAT CAUSED HER CO2 TO GO UP BUT THE PASSY-HERLINDA VALVE COULD BE REMOVED SOONER TO ELIMINATE THAT AN OPTION OF A POSSIBLE CONTRIBUTING FACTOR. WE SPOKE OF THE MATTER AND AGREED THAT I WOULD MAKE A NOTE FOR EVERYONE TO SEE THAT THE VALVE SHOULD BE REMOVED BY AROUND 8PM EACH NIGHT TO MAINTAIN CONTINUITY OF CARE. THE FAMILY WAS ON BOARD AND LIKED THE IDEA.
--- NOTE | 2017-07-11 19:22 | NUR ---
REPORT RECEIVED FROM CAMI VALLEJO. PT SITTING UP IN BED WEARING TRACH MASK 10L.
--- NOTE | 2017-07-11 21:55 | NUR ---
PT REQUESTS UP TO CHAIR, CPAP REMOVED, PT PLACED BACK ON TRACH MASK 10L AND PT UP TO CHAIR WITH CALL LIGHT IN HAND.
--- NOTE | 2017-07-11 22:54 | NUR ---
UP TO BSC FOR MEDIUM SIZED STOOL, THEN BACK TO CHAIR WITH CALL LIGHT IN HAND. STATES SHE WAS ABLE TO SLEEP A BIT, DENIES PAIN, CONTINUES TO WEAR TRACH MASK AND DENIES SOB.
--- NOTE | 2017-07-12 00:07 | NUR ---
PT HAS BEEN RESTLESS THE LAST COUPLE OF HOURS, CALLS TO ASK IF STAFF CAN CALL HER AND WRITES MESSAGE TO HIM "IM AT YOUR HOUSE, PLEASE COME GET ME". PT REMINDED THAT SHE IS IN THE HOSPITAL, MOUTHS OH THATS RIGHT, THEN FORGETS A FEW MINUTES LATER THAT SHE IS IN THE HOSPITAL, ASKING WHERE HER IS REPEATEDLY. RT IN AT THIS TIME TO DO TRACH CARE AND CHECK ON PT, PT BACK TO BED, DR GOMEZ CALLS AND UPDATED REGARDING CONFUSION, ORDER GIVEN FOR ABG, PLACE PT BACK ON BIPAP AND PCXR NOW. ABG DRAWN WHILE RT WAS PUTTING PT ON BIPAP, THEN XR IN TO DO CHEST XR. PT WAS SHOWING NO SIGNS OF RESP DISTRESS PRIOR TO PLACING ON BIPAP, RR WAS 20, SPO2 97%, RESP EVEN AND UNLABORED WEARING TRACH MASK 10L. AFTER BIPAP RR 22, SPO2 100% WITH FIO2 40% 12/5 SETTINGS, HR DOWN TO 90'S. PT IS QUICKLY TO SLEEP AFTER EVERYONE LEAVES THE ROOM, LOOKING MORE RELAXED NOW. AWAITING RESULTS OF ABG AND CXR, WILL UPDATE DR GOMEZ SOON REPORTS ARE IN.
--- NOTE | 2017-07-12 00:27 | NUR ---
CALL TO DR GOMEZ TO UPDATE REGARDING CXR AND ABG RESULTS, NO NEW ORDERS AT THIS TIME, WILL CONTINUE TO KEEP PT ON BIPAP THROUGH THE NIGHT AND REPEAT CXR AND ABG IN AM.
--- NOTE | 2017-07-12 01:15 | NUR ---
DR GOMEZ IN TO PLACE CHEST TUBE. CHEST TUBE PLACED IN LEFT CHEST, ATTACHED TO WALL SUCTION WITH RETURN OF 150ML YELLOW FLUID IMMEDIATELY. CHEST XR DONE AFTERWARDS. PT INEZ PROCEDURE WELL,
--- NOTE | 2017-07-12 04:39 | NUR ---
CXR REPORT CALLED TO DR GOMEZ, WILL KEEP DRESSING ON CHEST TUBE SITE AND MONITOR PT CLOSELY. PT IS CURRENTLY AWAKE IN BED, DENIES PAIN OR SOB, MOVES IN BED OCCASIONALLY WITH HR UP TO 110 WITH MOVEMENT. SPO2 100% RR 20, CONTINUES TO WEAR BIPAP. NO S/SX OF RESP DISTRESS AT THIS TIME.
--- NOTE | 2017-07-12 05:13 | NUR ---
LAB IN TO DRAW.
--- NOTE | 2017-07-12 07:27 | NUR ---
PT HAD CHEST TUBE DISLODGED APPROX 0330 LAST NIGHT, VS HAVE REMAINED STABLE THROUGH THE NIGHT. THE PT HAS CONTINUED TO EXHIBIT SOME SIGNS OF CONFUSION THROUGH THE NIGHT ALONG WITH RESTLESSNESS, AND HAS NOT SLEPT MUCH, ALTHOUGH SHE DENIES PAIN/SOB OR OTHER COMPLAINTS.
--- NOTE | 2017-07-12 08:00 | NUR ---
PT UP TO BEDSIDE COMMODE, HAD VERY SMALL BM AT THIS TIME. THEN PT UP TO THE CHAIR. PT WAS ABLE TO AMBULATED WITHOUT BIPAP OR TRACH MASK INPLACE. PT PLACED ON TRACK MASK AT 10L'S. RT CAME IN AND PLACED TALKING CUFF. 08:30 PT TOOK ORAL MEDS WELL. ONE AT A TIME AND DID WILL WITH THIS PROCESS AT THIS TIME. DAUGHTER AT THE BEDSIDE. 09:00 PT REMAINS UP IN THE CAHIR, AT THE BEDSIDE. RETAPED FEED TUBE, AND PT KEEP PICKING AT IT. NEW OP-SITE PLACED BY SLIDE MAKER. PT AND HAPPY WITH THE NEW OPSITE AT THIS TIME.
--- NOTE | 2017-07-12 10:02 | NUR ---
PT UP TO THE BS COMMODE HAD VERY SAMLL BM GREEN IN COLOR.
--- NOTE | 2017-07-12 10:09 | NUR ---
PT REFUSED TO WORK WITH PT THIS AM. FAMILY IN THE ROOM. PT REQUESTED RT AT THIS TIME. THEY WHERE CALLED AND WILL COME AND SEE PT. PT IS HAVEING GOOD URINE OUTPUT FROM THE LASIX 80MG THIS AM.
--- NOTE | 2017-07-12 10:30 | NUR ---
PT REMAINS UP IN THE CHAIR, APPEARS TO BE SLEEPING AT THIS TIME. REMAINS AT THE BEDSIDE. CURTAINS OPEN, BUT DOOR IS CLOSED AT THIS TIME.
--- NOTE | 2017-07-12 11:23 | OR ---
[facility] [address], [place] [address] Signed DATE OF OPERATION: 07/11/2017 SURGEON: Shukri Gomez MD PREOPERATIVE DIAGNOSES: 1. Persistent large left pleural effusion, known congestive heart failure. 2. Tracheostomy with chronic respiratory support weaning. POSTOPERATIVE DIAGNOSIS: Minimal pleural fluid. PROCEDURE: Left thoracentesis. ANESTHESIA: 1% lidocaine. INDICATION: An 86-year-old white woman with persistent left pleural effusion. She had a previous right pleural effusion, which has resolved on its own. She has had weaning of her ventilator now, supported primarily by a tracheostomy with a trach mask and episodic use of BiPAP support. It is thought that removal of left pleural fluid may be of benefit in assistance of her long-term weaning. The risks of bleeding, infection, and pneumothorax were reviewed with the patient and her . They understand and wished to proceed. FINDINGS: The left pleural space was encountered and only a minute amount of pleural fluid, which was clear and yellow was noted. Various points along the approximately 7th rib were used for access to the pleural space. No reliable large pleural fluid could be encountered and therefore, the procedure was not more fully done. A postprocedure chest x-ray did show a pleural line suggestive of very small pneumothorax. This will be monitored and if necessary, a chest tube placed later. DESCRIPTION OF PROCEDURE: In the upright position, the arms draped over the table. The left posterior thorax was clearly able to be palpated. The tip of the scapula was marked. The area was prepared with a Betadine solution and draped sterilely. A 1% lidocaine was injected directly over probably the 7th rib. The pleural space was interrogated with the lidocaine syringe, not particularly delivering fluid at that time. An additional point lateral was then undertaken, where a small amount of pleural fluid was noted. Electronically Signed By: SHUKRI GOMEZ MD 07/12/17 1123 PATIENT NAME: SAEED OBRIEN OPERATIVE REPORT DATE OF : 32 PHYSICIAN: SHUKRI GOMEZ MD REPORT #: [id number] REPORT IS CONFIDENTIAL AND NOT TO BE RELEASED WITHOUT AUTHORIZATION [facility] [address], [place] [address] Signed As this appeared to be a space reasonable for access to the pleural space for pleural fluid drainage, a new thoracentesis kit was employed to access the pleural space. There was really no withdrawal of pleural fluid as one would expect based on the chest x-ray. Clearly, the pleural space was encountered. Two other areas along the 7th rib more posteriorly were interrogated, again showing no clear flowing fluid. Further attempts were abandoned. A postprocedure chest x-ray was performed showing a less than 1 cm pleural line along the lateral chest wall on the left, but no large pneumothorax. She was completely asymptomatic. It is planned that a 2-hour chest x-ray will be performed if the pneumothorax is larger in any way, then a chest tube will be placed. MD STANLEY Irwin/GRACE /[id number] Electronically Signed By: SHUKRI GOMEZ MD 07/12/17 1123 PATIENT NAME: SAEED OBRIEN OPERATIVE REPORT DATE OF : 31 PHYSICIAN: SHUKRI GOMEZ MD REPORT #: [id number] REPORT IS CONFIDENTIAL AND NOT TO BE RELEASED WITHOUT AUTHORIZATION
--- NOTE | 2017-07-12 11:23 | OR ---
[facility] [address], [place] [address] Signed DATE OF OPERATION: 07/12/2017 SURGEON: Shukri Gomez MD PREOPERATIVE DIAGNOSES: 1. Slowly increasing left pneumothorax. 2. Chronic respiratory failure with tracheostomy and BiPAP ventilatory support. POSTOPERATIVE DIAGNOSES: 1. Slowly increasing left pneumothorax. 2. Chronic respiratory failure with tracheostomy and BiPAP ventilatory support. PROCEDURE: Left 22-Lithuanian chest tube placement. ANESTHESIA: 1% lidocaine. INDICATION: An 86-year-old white woman with chronic ventilatory failure, now with tracheostomy and under a trach mask weaning protocol. She has a sizable left pleural effusion and earlier today a thoracentesis was attempted by myself. Only a small amount of fluid was noted. A postprocedure chest x-ray showed a small apical pneumothorax. Serial chest x-rays during the day showed it to actually becoming smaller. A trach mask for nighttime use was once again attempted this evening. However, she began to be somewhat restless and on that basis, I asked them to return her to BiPAP mode of ventilatory support via the tracheostomy as well as ordered a chest x-ray to assess for the pneumothorax issue. She promptly improved her orientation and she was noted to be retaining CO2 on ABG that was concurrently performed, but her situation has much improved at this point. The chest x-ray, however, did show slight enlargement with the apical airspace to be about 4.2 cm rather than 2.5, as previously noted. On that basis and given the beneficial effect of pleural fluid drainage if possible, I have recommended a chest tube. The risks of bleeding, infection, and other unforeseen complications were reviewed with the patient, who is alert and oriented and she agrees. FINDINGS: The pleural space was found to be unencumbered by pleural adhesions. A 22-Lithuanian chest tube was placed without problem, draining clear straw-colored fluid. A postprocedure portable chest x-ray was reviewed showing the tube to be placed appropriately with the Electronically Signed By: SHUKRI GOMEZ MD 07/12/17 1123 PATIENT NAME: SAEED OBRIEN OPERATIVE REPORT DATE OF : 31 PHYSICIAN: SHUKRI GOMEZ MD REPORT #: [id number] REPORT IS CONFIDENTIAL AND NOT TO BE RELEASED WITHOUT AUTHORIZATION [facility] [address], [place] [address] Signed tip in the upper lung field and diminishment of pleural fluid and no clear evidence of pneumothorax on first examination. DESCRIPTION OF PROCEDURE: In the semi-recumbent position in her bed, her arm was placed over her head and the left chest prepared with a Betadine solution and draped sterilely. 1% lidocaine was injected over about the sixth intercostal space in the anterior axillary line. Penetration to the pleural space directly over the rib did reveal some air as would be expected. A transverse incision was made with a 10-blade and using a heavy clamped dissection undertaken directly over the 6th rib, ultimately allowing for penetration to the pleural space over the rib. Egress of some air and straw-colored fluid was noted. A 22-Lithuanian Atrium soft chest tube was insinuated into the pleural space without resistance and secured to the skin with nylon suture and attached to an Atrium Pleur-evac type device. Banks tape was applied to secure the tube in several areas and a connection also secured with pink tape. Approximately 160 mL of straw-colored fluid was noted in the device. There was no sign of blood. The postprocedure portable chest x-ray was reviewed initially showing the tube to be directed superiorly as expected and with improvement of pleural fluid and no clear evidence of pneumothorax at this time. There appears to be no air leak in the device. MD STANLEY Irwin/SHAHRAML /[id number] cc: MD Ameena Hunter MD Electronically Signed By: SHUKRI GOMEZ MD 07/12/17 1123 PATIENT NAME: SAEED OBRIEN OPERATIVE REPORT DATE OF : 31 PHYSICIAN: SHUKRI GOMEZ MD REPORT #: [id number] REPORT IS CONFIDENTIAL AND NOT TO BE RELEASED WITHOUT AUTHORIZATION [facility] [address] [place] [address] [place] [address] Signed Yassine Serna MD Electronically Signed By: SHUKRI GOMEZ MD 07/12/17 1123 PATIENT NAME: SAEED OBRIEN OPERATIVE REPORT DATE OF : 31 PHYSICIAN: SHUKRI GOMEZ MD REPORT #: [id number] REPORT IS CONFIDENTIAL AND NOT TO BE RELEASED WITHOUT AUTHORIZATION
--- NOTE | 2017-07-12 11:23 | OR ---
[facility] [address] [place], [place] [address] Signed DATE OF OPERATION: 07/06/2017 SURGEON: Shukri Gomez MD PREOPERATIVE DIAGNOSIS: Dysfunctional left nostril Flexiflo feeding tube. POSTOPERATIVE DIAGNOSIS: Dysfunctional left nostril Flexiflo feeding tube. PROCEDURE: Removal and replacement of left nasal feeding tube. ANESTHESIA: None. INDICATION: This 86-year-old white woman has had a nasal feeding tube on the left side for several days. It has recently become clogged related to medication, tube feeds, and so forth. The usual attempts at the clearance of the tube events unsuccessful and removal is indicated, so she can have ongoing enteral feeds. Per protocol of the hospital, physician must replace such tubes. The risks of malplacement and other unforeseen complications were reviewed with the family and the patient. They understand. FINDINGS: The tube was placed without problem. Followup chest x-ray showed the tip of the feeding tube to be in the stomach. There were no complications. DESCRIPTION OF PROCEDURE: In the upright position, the previous feeding tube was removed without problem. Using a Flexiflo-type feeding tube, the tip was lubricated with plain water as usual and gently passed down the left nostril without complication. It was secured temporarily to the left naris with some tape and upright x-ray was performed, which showed the tip into the antrum of the stomach. The wire was then carefully removed and the catheter was to be more fully secured with an OpSite and the tape. Given its optimal placement, the tube feeding can resume soon. Electronically Signed By: SHUKRI GOMEZ MD 07/12/17 1123 PATIENT NAME: SAEED OBRIEN OPERATIVE REPORT DATE OF : 31 PHYSICIAN: SHUKRI GOMEZ MD REPORT #: [id number] REPORT IS CONFIDENTIAL AND NOT TO BE RELEASED WITHOUT AUTHORIZATION [address] [address] Signed MD STANLEY Irwin/GRACE /[id number] Electronically Signed By: SHUKRI GOMEZ MD 07/12/17 1123 PATIENT NAME: SAEED OBRIEN OPERATIVE REPORT DATE OF : 31 PHYSICIAN: SHUKRI GOMEZ MD REPORT #: [id number] REPORT IS CONFIDENTIAL AND NOT TO BE RELEASED WITHOUT AUTHORIZATION
--- NOTE | 2017-07-12 12:00 | NUR ---
PT IS HAVING INCREASED ANXIETY, RESTLESSNESS, AND DECREASED LUNGS SOUNDS ON THE LEFT SIDE.
--- NOTE | 2017-07-12 13:20 | NUR ---
PT PLACED ON BEDPAN, NO BM AT THIS TIME, PASSING GAS. DR GOMEZ CALLED AFTER TALKING WITH RT, PT LUNGSOUNDS ON HER LEFT SIDE ARE DIM & CLEAR, BUT THEY ARE MORE DIM THAN THIS AM. PT HEART RATE AND RESP RATE HAVE INCREASED, PLUS PT IS HAVING INCREASED RESTLESSNESS. ORDER RECEIVED FOR CXR AT THIS TIME.
--- NOTE | 2017-07-12 14:20 | NUR ---
DR GOMEZ HERE AND PLACED A 20FR CHEST TUBE. PT INEZ-WELL AT THIS TIME, CXR COMPLETED AFTER PLACEMENT, PER DR GOMEZ LUNG APPEARS TO BE INPROVING. FAMILY REMAINS AT THE BEDSIDE. 15:00 PT C/O PAIN AT INCENTATION SITE. MEDICATED WITH 325MG TYLENOL AT THIS TIME. 15:10 FRESH DRAWEL SHEET PLACED AND PT TURNED FROM SIDE TO SIDE AND INEZ-WELL. REPOSITIONED IN BED AT THIS TIME.
--- NOTE | 2017-07-12 14:58 | NUR ---
PT WAS SITTING UP IN BED WITH DAUGHTER BY HER SIDE. SHE HAS HAD A ROUGH NIGHT, AND HAS STRUGGLED SOME TODAY. SHE HELD MY HAND AND ASKED ME TO PRAY FOR HER. I WILL FOLLOW NEEDED
--- NOTE | 2017-07-12 15:19 | NUR ---
PT REPOSITIONED IN BED, HEEL PROCTORS IN PLACED, CALL LIGHT WITHIN REACH AND SIDERAILSX 4. PT REQUESTED RT TO SUCTION HERE AND NOT BOTANY TECHNICIAN.
--- NOTE | 2017-07-12 16:11 | NUR ---
FAMILY AT THE BEDSIDE, ORDER CAREGIVER TRAY FOR AT THIS TIME. PT AT TIMES IS SLEEPING AND APPEARS TO BE RESTING COMFORTABLE WHEN SLEEPING. WORK OF BREATHING HAS DECREASED, BUT BP HAS DECREASED.
--- NOTE | 2017-07-12 16:26 | NUR ---
DR RACHEL NOTIFIED OF DECREASED B/P SINCE CHEST TUBE PLACEMENT. WILL RECHECK IN 30 MINUTES AND NOTIFIED HIM OF THE RESULTS.
--- NOTE | 2017-07-12 18:54 | NUR ---
pt feeding tube dressing changed due to pulling up against the pts nose. FAMILY REMAINS AT THE BEDSIDE AT THIS TIME.
--- NOTE | 2017-07-12 18:55 | NUR ---
PT CHEST TUBE DRAINING WELL WITH NO AIR LEAKS NOTED AT THIS TIME.
--- NOTE | 2017-07-12 19:15 | NUR ---
SHIFT REPORT RECEIVED FROM YONI VASQUEZ. PT RESTING IN BED WITH BIPAP IN PLACE. FAMILY AT BEDSIDE, WILL CONTINUE TO MONITOR.
--- NOTE | 2017-07-12 20:50 | NUR ---
ASSESSMENT COMPLETED. PT IS ALERT/ORIENTED AT THIS TIME. DENIES PAIN AND NAUSEA. LUNGS SOUND COARSE, BIPAP IN PLACE, FIO2 40%. HR IRREGULAR. BOWEL TONES ACTIVE, PT PASSING FLATUS. IV PATENT, SL. FEEDING TUBE SECURED IN PLACE, JEVITY 1.5 INFUSING AT 75ML/HR. CHEST TUBE TO LEFT CHEST, DRESSING C/D/I, CONNECTED TO 20ML SUCTION, WATER SEAL AT LINE. EDEMA GREATLY IMPROVED TO BLE. ELMORE PATENT, DRAINING FREELY. PT PROVIDED WITH FRESH ICE WATER AND APPLE JUICE PER REQUEST. DENIES FURTHER NEEDS AT THIS TIME. WILL CONTINUE TO MONITOR.
--- NOTE | 2017-07-12 21:50 | NUR ---
PT REPOSITIONED IN BED, HIP PLACED UNDER LEFT HIP. PT APPEARED PAINFUL WITH MOVEMENT. 1 TAB TYLENOL GIVEN FOR 5/10 LEFT RIB PAIN. PT DENIES FURTHER REQUESTS.
--- NOTE | 2017-07-12 23:10 | NUR ---
PT CALLED AND REQUESTED TO BE REPOSITIONED IN BED.
--- NOTE | 2017-07-13 00:08 | NUR ---
ASSESSMENT COMPLETED. PT STATES HER PAIN HAS IMPROVED SINCE RECEIVING TYLENOL. LUNGS REMAIN COARSE, BIPAP IN PLACE. CHEST TUBE REMAINS IN PLACE, CONNECTED TO 20ML SUCTION, DRESSING TO INSERTION SITE C/D/I. NO LEAKS NOTED. NO CHANGES FROM PREVIOUS ASSESSMENT, WILL CONTINUE TO MONITOR.
--- NOTE | 2017-07-13 00:45 | NUR ---
R.T. IN TO DO TRACH CARE.
--- NOTE | 2017-07-13 02:37 | NUR ---
PT CALLED AND REQUESTED A WARM BLANKET. SHE CONTINUES TO DENY PAIN. BIPAP IN PLACE, RESPIRATIONS EVEN AND UNLABORED. CHEST TUBE IN PLACE, NO LEAKS NOTED. ELMORE PATENT, DRAINING FREELY. FEEDING TUBE RUNNING AT 75ML/HR. WILL CONTINUE TO MONITOR.
--- NOTE | 2017-07-13 03:39 | NUR ---
PT CALLED AND SUCTIONING DONE PER REQUEST. PT ALSO REQUESTS THAT INNER CANNULA OF TRACH BE SWITCHED OUT. CALLED AND TALKED TO R.T. WHO STATES THAT THE INNER IS STILL DRYING SINCE IT WAS CLEANED. PT STATES SHE UNDERSTANDS AND IS AGREEABLE TO WAITING. DENIES FURTHER REQUESTS.
--- NOTE | 2017-07-13 04:30 | NUR ---
R.T. IN ROOM TO SUCTION PT AND CHANGE INNER CANNULA. ASSESSMENT COMPLETED. ALERT, DENIES PAIN. LUNGS CLEAR, DIM IN BASES, BIPAP IN PLACE. HR IRREGULAR. BOWEL TONES ACTIVE. CHEST TUBE TO LEFT CHEST CONNECTED TO PLEUROVAC WITH 20ML SUCTION, NO LEAKS NOTED, DRESSING TO INSERTION SITE C/D/I. FEEDING TUBE SECURE, JEVITY RUNNING AT 75ML/HR. IV SL. PT STATES THAT SCD'S ARE BOTHERING HER NOW, REMOVED TO GIVE HER A BREAK. PT DENIES FURTHER REQUESTS, WILL CONTINUE TO MONITOR.
--- NOTE | 2017-07-13 06:05 | NUR ---
PT REQUESTS TO GET OUT OF BED AND SIT IN CHAIR. STANDING WEIGHT: 121.1 LBS. PT STATES SHE IS COMFORTABLE, IS NOW LOOKING THROUGH A MAGAZINE. CHEST TUBE REMAINS IN PLACE. BED LINENS CHANGED. PT HAS CALL LIGHT WITHIN REACH AND IS IN VIEW OF NURSES' STATION. WILL CONTINUE TO MONITOR.
--- NOTE | 2017-07-13 07:05 | NUR ---
PT CALLED AND REQUESTED TO USE THE BATHROOM, UP TO BSC TO HAVE SOFT, MEDIUM SIZE BM. PERICARE PROVIDED AND THEN RETURNED TO CHAIR. CALL LIGHT IN REACH, NO FURTHER REQUESTS.
--- NOTE | 2017-07-13 07:30 | NUR ---
PT IS UP IN THE CHAIR AT THIS TIME. RT NOTIFIED AND THEY PLACED SPEAKING VAULE IN FOR PT AND CLEANED UP THE SUPPLIES THAT THEY USE IN THE ROOM. PT HAS NO C/O'S AT THIS TIME.
--- NOTE | 2017-07-13 08:30 | NUR ---
PT REMAINS UP IN THE CHAIR DAUGHTER AT THE BEDSIDE. PT ABLE TO TAKE ALL HER PO MEDS WELL ALL LARGER PILLS CUT IN HALF FOR PT.
--- NOTE | 2017-07-13 09:00 | NUR ---
DR GOMEZ INTO SEE PT THIS AM. NEW ORDERS RECEIVED.
--- NOTE | 2017-07-13 11:01 | NUR ---
PT TRYING TO REST AT THIS TIME. DAUGHTER REMAINS AT THE BEDSIDE.
--- NOTE | 2017-07-13 12:00 | NUR ---
PT BACK UP TO THE CHAIR AT THIS TIME, DID WELL WITH AMBULATING WITH STAFF.
--- NOTE | 2017-07-13 12:40 | OR ---
[facility] [address], [place] [address] Signed DATE OF OPERATION: 07/12/2017 SURGEON: Shukri Gomez MD PREOPERATIVE DIAGNOSIS: Recurrent left pneumothorax (nonintentional dislodgement of chest tube earlier today). POSTOPERATIVE DIAGNOSIS: Recurrent left pneumothorax (nonintentional dislodgement of chest tube earlier today). PROCEDURE: Replacement of left 22-Estonian chest tube. SURGEON: Shukri Gomez MD ANESTHESIA: 1% lidocaine. INDICATION: This 86-year-old white woman has a tracheostomy and chronic ventilatory failure and is on a weaning program. She underwent a thoracentesis yesterday, which delivered only a small amount of fluid, but did result in a 1 cm pneumothorax, which was monitored over time. She was physiologically quite tolerant of it. In the audio visual aide hours today, she had increasing respiratory distress and a somewhat larger pneumothorax and on that basis, a chest tube was placed. The respiratory distress was minimal and more likely related to fatigue from a tracheal mask ventilatory plan. The chest tube was placed allowing for withdrawal of 160 mL of clear straw-colored fluid and we nearly complete re-expansion of the small pneumothorax. For reasons still inexplicable to our caretakers, the chest tube was "found out" at approximately 4:00 a.m. The site of the chest tube was covered subsequent to that and chest x-ray did show some residual pneumothorax. The chest x-ray was stable without signs of increasing pneumothorax rather than replacing the chest tube, observation was undertaken. She has been on tracheal mask today. Generally doing well, but in recent times will get more respiratory distress and she returned to a BiPAP mode on the ventilator, and a chest x-ray was performed on the suspicion of the intensive care unit nurse, which did confirm an increased size of the pneumothorax. On that basis, replacement of chest tube Electronically Signed By: SHUKRI GOMEZ MD 07/13/17 1240 PATIENT NAME: SAEED OBRIEN OPERATIVE REPORT DATE OF : 32 PHYSICIAN: SHUKRI GOMEZ MD REPORT #: [id number] REPORT IS CONFIDENTIAL AND NOT TO BE RELEASED WITHOUT AUTHORIZATION [facility] [address], [place] [address] Signed was deemed advisable. FINDINGS: There was a small amount of straw-colored fluid remaining, but not much. The previous chest tube site was used for entry into the pleural space. Good expansion of the lung is noted on the post procedure chest x-ray. There was a brief amount of air in the air chamber consistent with evacuation of the pleural space, but no ongoing air leak. DESCRIPTION OF PROCEDURE: The patient was allowed to remain in the bed in a semi-recumbent position with the left arm elevated. The left chest wall bandage was removed and the area prepared with a Betadine solution and draped sterilely. A 1% lidocaine was injected at the previous chest tube site. The site was probed with the heavy clamp and digital examination of the pleural space and insinuation of a 22-Estonian soft chest tube placed without resistance. It was secured to the skin with 2 separate 0 silk sutures and attached to a conventional Pleur-evac device. Suction was applied and a brief time of air leak was noted ultimately stopping entirely. A small amount of clear straw-colored pleural fluid was withdrawn. A portable chest x-ray was obtained and reviewed showing good expansion of the lung, tube to be oriented, cephalad, and laterally and in good position. The base of the left lung does have atelectatic changes, but no meniscus or any sign of retained fluid or air at this time. Shukri Gomez MD /MODL /[id number] cc: Ameena Lopez MD [facility] Lisy Serna MD Melo Guo MD Electronically Signed By: SHUKRI GOMEZ MD 07/13/17 1240 PATIENT NAME: SAEED OBRIEN OPERATIVE REPORT DATE OF : 32 PHYSICIAN: SHUKRI GOMEZ MD REPORT #: [id number] REPORT IS CONFIDENTIAL AND NOT TO BE RELEASED WITHOUT AUTHORIZATION
--- NOTE | 2017-07-13 13:00 | NUR ---
ELMORE CATHETER DC'D AT THIS TIME.
--- NOTE | 2017-07-13 14:12 | NUR ---
PATIENT CONTINUES TO RECEIVE CONTINUOUS FEEDING VIA DOBHOFF TUBE. JEVITY 1.5 AT 75 ML/HR CONTINUES WELL WITH 50 ML WATER FLUSHES EVERY 4 HOURS. PATIENT IS TOLERATING THIS VERY WELL. HAVING BM'S AND NO NAUSEA/VOMITING. ORAL DIET IS FULL LIQUIDS BUT PATIENT IS NOT TAKING MUCH MY MOUTH RIGHT NOW. HER WEIGHT IS 121 LBS (55 KG). SHE IS RECEIVING 2700 CALORIES AND 115 GRAMS PROTEIN PER DAY. WITH HER CURRENT WEIGHT THIS IS PROVIDING 49 JERRY/KG AND 2.1 GM PROTEIN/KG. GLUCOSE IN GOOD CONTROL, 131 TODAY. NO NEW BNP. CONTINUE TO MONITOR PATIENT'S PO INTAKE WITH FL DIET. CONTINUE TUBE FEEDING IS.
--- NOTE | 2017-07-13 14:43 | NUR ---
PT REALLY NEEDING TO REST, JUST A QUICK HELLO AND PRAYER. DAUGHTER BY PT'S SIDE. REQUESTED AUTOMOTIVE DETAILER NOT COME BY TODAY.. WILL TELL FR CAMPUZANO. WILL FOLLOW NEEDED
--- NOTE | 2017-07-13 15:10 | NUR ---
PT UP TO BS COMMODE VOIDED AND HAD SMALL BM AT THIS TIME. THEN BACK UP TO THE CHAIR. PT ABLE TO LEFT SELF OUT OF HER BED AND DOING WELL.
--- NOTE | 2017-07-13 16:12 | NUR ---
PT IS IN THE ROOM AT THIS TIME, PT REMAINS UP IN THE CHAIR AND DENIES PAIN, SHE REMAINS ON THE TRACH CUFF WITH A FIO2 98%.
--- NOTE | 2017-07-13 16:36 | NUR ---
PT BACK TO BED AT THIS TIME, ONE PERSON ASSISTANCE TO THE BED, FAMILY AT THE BEDSIDE AT THIS TIME.
--- NOTE | 2017-07-13 17:26 | NUR ---
PT UP TO THE BEDSIDE COMMODE, DID WELL WITH AMBULATION GETTING IN AND OUT OF BED.
--- NOTE | 2017-07-13 18:45 | NUR ---
PT IN BED APPEARS TO BE COMFORTABLE , REMAINS AT THE BEDSIDE.
--- NOTE | 2017-07-13 21:38 | NUR ---
SHIFT CHANGE RECEIVED AT 1930. PT UP TO BSC AT THAT TIME TO VOID. REINFORCED CHEST TUBE WITH PINK TAPE. PT WITH SPEAKING VALVE IN PER RT. PT NOTED TO BE ATTEMPTING TO GET OOB WITHOUT ASSISTANCE. PT ASKED TO CALL TO COME PICK HER UP. PT DISORIENTED TO PLACE AND SITUATION. PLACED BED ALARM ON PT. OFFERED SIPS APPLEJUICE, SWALLOWS WELL. CHEST TUBE PATENT WITH SEROUS DRAINAGE. WATER SEAL CHAMBER WITHOUT BUBBLING. TUBE FEEDING INTO L NARE AT 75ML/HR.
--- NOTE | 2017-07-14 06:38 | NUR ---
PT RESTLESS THROUGHOUT THE NIGHT, ONLY SLEEPING A FEW MINUTES AT AT TIME, A COUPLE TIMES SITTING UP TRYING TO GET OOB. CONFUSED TO SITUATION, REORIENTS SOMEWHAT HOWEVER. BED ALARM ON PT. PT REMAINS IN CLOSE OBSERVATION BY STAFF FIDDLES WITH TUBING, PULLS OFF BIPAP TO TRACH. PT INTERMITTENTLY USES CALL LIGHT. TUBE FEEDING INFUSING AT 75ML/HR INTO L NARE. HELD WHEN HOB LOWERED OR PT UP. TRACH MASK ON AT 10L WHEN UP TO BSC. PT MOVING WELL. CHEST TUBE REMAINS PATENT WITH NO BUBBLING IN WATER SEAL CHAMBER, BUBBLING IN SUCTION CHAMBER.
--- NOTE | 2017-07-14 08:00 | NUR ---
AM MED GIVEN PT DID WELL WITH THIS PROCESS. UP IN THE CHAIR WITH THE TRACH MASK, AND SPEAKING VALUE INPLACE. PT HAS NO COMPLAINTS AT THIS TIME.
--- NOTE | 2017-07-14 08:46 | NUR ---
VITALS AND I&O'S TAKEN AND DOCUMENTED.
--- NOTE | 2017-07-14 10:00 | NUR ---
PT UP TO BS COMMODE, VOIDED AND THEN COMPLETE BED BATH GIVEN AT THIS TIME, PT TOLERATED WELL, AND THEN BACK TO BED.
--- NOTE | 2017-07-14 11:07 | NUR ---
PT FAMILY AT BEDSIDE.
--- NOTE | 2017-07-14 12:39 | NUR ---
PT REMAINS IN BED WAS AT THE BEDSIDE, STATED "SHE IS CONFUSED THIS AFTERNOON" HE UNDERSTOOD THAT IS DUE TO HER NOT NOT SLEEPING. EVEN THOUGH SHE HAS BEEN SLEEPING THIS AM.
--- NOTE | 2017-07-14 13:15 | NUR ---
DR GOMEZ INTO SEE PT AT THIS TIME, CHEST TUBE REMOVED, PT DID WELL, THEN RT INTO THE ROOM AND WORKED WITH PT. THEN PT UP TO BEDSIDE COMMODE, VOIDED AND THEN UP TO THE CHAIR. FAMILY BACK INTO THE ROOM. FAMILY FUSSING WITH EQUIPMENT AND SUPPLIES AT THE BEDSIDE. THEY ARE ALSO FUSSING WITH PT AND TUBES.
--- NOTE | 2017-07-14 16:01 | NUR ---
PT ASLEEP SITTING UP IN THE CHAIR AT THIS TIME. AND ONE DAUGHTER AT THE BEDSIDE. PT REMAINS ON THE TACH MASK WITH SPEAK VALUE INPLACE.
--- NOTE | 2017-07-14 16:07 | NUR ---
XRAY HERE TO OBTAIN CXR AT THIS TIME.
--- NOTE | 2017-07-14 16:17 | NUR ---
PT IS SITTING UP IN CHAIR WITH FEET ELEVATED. CALL LIGHT IN REACH AND FAMILY IN ROOM. PT ASKED FOR MORE CRANBERRY JUICE
--- NOTE | 2017-07-14 16:31 | NUR ---
PT UP TO THE BS COMMODE, VOIDED AND HAD SMALL BM AT THIS TIME. PT ASKED IF SHE COULD HAVE THE ELMORE CATHETER BACK. PT TIRED OF GETTING UP TO THE BS COMMODE.
--- NOTE | 2017-07-14 16:46 | NUR ---
PT C/O HAVING SPUTUM AND NOT ABLE TO GET IT OUT WITH ORAL SUCTION. RT NOTIFIED THEY CAME AND WILL SUCTION PT FOR MD OPHTHALMOLOGIST.
--- NOTE | 2017-07-14 17:42 | NUR ---
PT REMAINS UP IN THE CHAIR, FAMILY AT THE WORRIED ABOUT THE TUBES AND DIFFERENT ITEMS IN THE ROOM.
--- NOTE | 2017-07-14 18:24 | NUR ---
BOTH PATIENT AND ARE ASLEEP SITTING IN TIFFANY NEXT TO EACH OTHER.
--- NOTE | 2017-07-14 23:15 | NUR ---
PT CALLING BY WAVING HAND AT STAFF. UP TO BSC TO VOID 300ML. ASSISTED BACK TO BED. RT TO PLACE BIPAP ON PT. PT DROWSY. BED ALARM ON.
--- NOTE | 2017-07-15 03:29 | NUR ---
PT AWAKE, REPOSITIONED IN BED. OFFERED SIPS WATER. NO OTHER NEEDS.
--- NOTE | 2017-07-15 04:46 | NUR ---
PT UP TO BSC TO VOID. PLACED ON TRACH MASK PER RT. PT REMAINS ON TRACH MASK BACK IN BED.
--- NOTE | 2017-07-15 07:30 | NUR ---
REPORT RECIEVED. C/O INCREASE SHORTNESS OF BREATH. BIPAP REAPPLIED. THEN SUCTIONED. PATIENT CONT TO BE SOB. HR 120'S WITH PVC'S. RT NOTIFIED, WHEN ARRIVED, INNER CANULA REMOVED AND REPLACED WITH CLEAN CANULA. AFTER THIS DONE, FEELS BETTER.
--- NOTE | 2017-07-15 09:00 | NUR ---
DR. RACHEL HERE TO SEE PATIENT. PATIENT REMAINS IN CHAIR. TOOK BREAKFAST POOR. T.FEEDING AT 75 ML. ROUTINE MEDS GIVEN VIA FEEDING TUBE.
--- NOTE | 2017-07-15 09:01 | NUR ---
OOB TO COMMODE TO VOID THEN TO CHAIR FOR BREAKFAST. IN [employer]. DAUGHTER IS HERE. TUBE FEEDING INFUSING AT 75 ML/HR. MEDS GIVEN VIA FEEDING TUBE. SPEAKING VALUE IN PLACE WITH TRACH MIST MASK PLACED.
--- NOTE | 2017-07-15 10:30 | NUR ---
PHYS THERAPY HERE TO WORK WITH PATIENT. AMBULATED FRON RM 129 TO RM 124. ON O2 AT 6 L VIA MASK. SAT REMAINS IN MID 90'S. WHEELED TO WAITING ROOM TO REST, THEN AMBULATED BACK TO ROOM 129 TO CHAIR.
--- NOTE | 2017-07-15 14:56 | NUR ---
CONTINUE TO SIT IN CHAIR. NO DISTRESS NOTED. FAMILY IN ROOM.
--- NOTE | 2017-07-15 15:50 | NUR ---
IN CHAIR, VISITING WITH DAUGHTER.
--- NOTE | 2017-07-15 16:00 | NUR ---
UP AMBULATING IN HALLWAY TO THE DOOR OF RM 130 THEN RETURN TO CHAIR. TOLERATED WELL DENIES SHORTNESS OF BREATH. UPON RETURN TO CHAIR SAT 95. AMBULATED ON ROOM AIR. ASSESSMENT DONE. IS UNCHANGED.
--- NOTE | 2017-07-15 18:00 | NUR ---
BACK TO BED. FEED TUBE INFUSING AT 75. TRACH MIST MASK ON AT 10 LITERS.
--- NOTE | 2017-07-15 22:23 | NUR ---
REPORT RECEIVED ON PT AT 1915. PT UP TO BSC TO VOID WITH ASSIST. TRACH MASK ON 10L. TOLERATING WELL. BACK TO BED. HS CARES NOW DONE. PT ASLEEP. HOB UP.
--- NOTE | 2017-07-16 00:40 | NUR ---
PT UP TO BSC TO VOID 400ML. BACK TO BED. TRACH MASK ON AT 10L.
--- NOTE | 2017-07-16 01:20 | NUR ---
PT TRACH CUFF CHECKED AND INFLATED. PT PLACED ON BIPAP AT 35% FI02 IPAP 12, EPAP 5, RATE 14.
--- NOTE | 2017-07-16 06:56 | NUR ---
PT UP TO BSC TO VOID AND HAVE MED GREEN/BROWN FORMED BM. UP TO CHAIR WITH TRACH MASK ON AT 10L HUMIDIFIED O2 AND SPEAKING VALVE. PT REMAINED ORIENTED THROUGHOUT NIGHT. SLEPT ON AND OFF UNTIL APPROXIMATELY 0430. CALL LIGHT WITHIN REACH.
--- NOTE | 2017-07-16 09:10 | NUR ---
PATIENT WASHED HER FACE AND NOW BRUSHING HER TEETH. SITTING UP IN THE CHAIR.
--- NOTE | 2017-07-16 10:29 | NUR ---
WHILE SHE WAS WITH PHYSICAL THERAPY I CHANGED THE LINENS ON HER BED. CHANGED THE PILLOW CASES IN HER CHAIR AND ALSO THE BLANKET AND THE ALIZA.
--- NOTE | 2017-07-16 10:32 | NUR ---
AMBULATING IN SILVA WITH PHYS THERAPY.
--- NOTE | 2017-07-16 13:20 | NUR ---
PT IN WORKING WITH PT, DENISSE STANDING OUTSIDE. VISITED WITH HIM A MOMENT-HE LOOKED SOMEWHAT MORE REFRESHED TODAY. I SHARED MY CONCERN FOR HIM. HE ADMITTED THAT IT IS HARD TO GO HOME AND REST WITHOUT PT. TRIES TO NAP SOME WHEN PT DOES. WILL CONTINUE TO FOLLOW
--- NOTE | 2017-07-16 22:45 | NUR ---
RT IN TO COMPLETE TRACH CARE AT 2200, TRACH CUFF INFLATED AND PT ON TRACH MASK HUMIDIFICATION ON RA. HOB UP. JEVITY INFUSING. PT ORIENTED AND USING CALL LIGHT.
--- NOTE | 2017-07-17 07:30 | NUR ---
REPORT RECIEVED. JEAN CARLOS IS IN CHAIR. NO DISTRESS NOTED.
--- NOTE | 2017-07-17 09:00 | NUR ---
TOOK COFFEE AND APPLESAUSE, 1/2 PIECE OF TOAST FOR BREAKFAST. ROUTINE MEDS GIVEN. HAS BEEN TO BR WITH ASSIST. IS STABLE ON FEET WITH WALKER. DENIES INCREASED SHORTNESS OF BREATH WITH AMBULATION.
--- NOTE | 2017-07-17 11:10 | NUR ---
CONTINUE TO SIT IN CHAIR. DAUGHTER IS IN ROOM.NO CHANGES.
--- NOTE | 2017-07-17 12:45 | NUR ---
PT SITTING IN CHAIR, SPOKE AND INVITED ME IN. SHE HAD A BIG SMILE ON-GOOD DAY TODAY. DAUGHTER AMBER IN, CAME JUST AFTER. THEY ARE VERY CLOSE-THEY NEEDED TO CONNECT. I OFFERED A PRAYER-WILL FOLLOW NEEDED
--- NOTE | 2017-07-17 14:30 | NUR ---
CARE CONFERENCE MET WITH PT AND HER . THEY STATE SHE IS PROBABLY GOING TO BE MOVING TO THE MED SURG FLOOR AND HOPEFULLY SOON THE TRACH WILL COME OUT AND WHEN TOLERATING ENOUGH NUTRITION THE FEEDING TUBE WILL BE REMOVED. PT AND SPOUSE DENIED FURTHER QUESTIONS AT THIS TIME, WILL CONTINUE FOLLOWING PT DURING HER STAY IN THE HOSPITAL.
--- NOTE | 2017-07-17 16:19 | NUR ---
CONTINUE TO SIT IN CHAIR. PATIENT WILL BE TRANSFERRED TO MEDICAL FLOOR TODAY. PATIENT AND FAMILY AWARE. ASSESSMENT COMPLETE.
--- NOTE | 2017-07-17 16:40 | NUR ---
TO MED-SURG VIA CHAIR. ROUTINE MED-SURG GIVEN PRIOR TO TRANSFER.
--- NOTE | 2017-07-17 17:15 | NUR ---
REPORT TO MED-SURG.
--- NOTE | 2017-07-17 17:30 | NUR ---
PT SITTING UP IN RECLINER EATING SOUP. NO DISTRESS NOTED. FAMILY IN ROOM. NO DISTRESS NOTED. NO CONCERNS
--- NOTE | 2017-07-17 18:48 | NUR ---
PT SITTING UP IN RECLINER. NO DISTRESS NOTED AT THIS TIME. RR EVEN/REGULAR
--- NOTE | 2017-07-17 20:20 | NUR ---
PT UP IN CHAIR. REPORTS NO PAIN. NG TUB TAPED AT 78. SL LEFT HAND. TRACH WITH HUMIDIFIED AIR. LUNG SOUNDS DIMINISHED AND TIGHT IN LOWER BASES. PT REQUESTED BED BATH TONIGHT. KANGAROO BAG RUNNING @ 75ML/ HR. PT UP TO RESTROOM WITH SBA ASSIST. PT UNSTEADY AND WANTS TO FALL BACKWARDS.
--- NOTE | 2017-07-17 21:25 | NUR ---
pt up to bathroom with fww and 2 person assist, tolerated very well. pt now in bed. trach care done by rt earlier. trach in place and secured. speaking cap taken off and placed in cap tucker on supply table in room. mask with humidity remains secured over trach. tube feeding infusing wnl. pt recieved bed bath per request. gave warm blanket. pt has no further needs. call light in reach.
--- NOTE | 2017-07-18 01:21 | NUR ---
pt up to bathroom, tolerated ambulating well with fww. feeding tube leaking, stopped kangaroo pump. feeding tube obstructed. ccu rn attempted to flush, no luck. drilling supervisor notified, drilling supervisor able to get tube to flush. feeding now infusing well, no leakage. pt confused at this time, asking to use the phone to call her , not aware that she is in the hospital. pt did however re-orient easily. speaking cap off of trach and humidity mask in place. pt has no further needs. visible from nurses station.
--- NOTE | 2017-07-18 03:31 | NUR ---
PT SLEEPING. BREATHING EQUAL AND UNLABORED. BREATH SOUNDS CLEAR SLIGHTLY DEMINISHED. FEEDING TUBE RUNNING @ 75ML. CALL LIGHT WITHIN REACH. VISABLE FROM NURSES STATION.
--- NOTE | 2017-07-18 03:42 | NUR ---
PT SAT UP AT SIDE OF BED. DOES NOT USE CALL IGHT APOROPRIATLY. SBA TO RESTROOM. PT STATED SHE GOT A LITTLE LIGHT HEADED. WE TOOK OUR TIME BACK TO BED. PT BACK TO BE WITH HUMIDIFIED AIR IN PLACE. TO LABORED BREATHING. REPORTS NO PAIN AT THIS TIMEE CALL IGHT WITHIN REACH, PT VISIBLE FROM NURSES STATION.
--- NOTE | 2017-07-18 05:18 | NUR ---
PT HAD DECENT NIGHT. UP A FEW TIMES TO USE RESTROOM. DOESNT USE CALL LIGHT APPROPRIATLY. BED ALARM IN PLACE. SBA W/ FWW. TRACH IN PLACE. CUFF DEFLATED AT THE MOMENT. ORAL PILLS IN APPLE SAUCE. TOLLERATED WELL. TUBE FEEDING @ 75ML/HR. RT DOES TRACH CARE Q SHIFT AND SUCTIONING PRN. REPORTS NO PAIN.
--- NOTE | 2017-07-18 06:23 | NUR ---
PT UP OUT OF BED AND SITTING UP IN CHAIR NOW, WATCHING THE NEWS ON TV. PT EATING APPLESAUCE PER REQUEST. FRESH ICE WATER GIVEN AND AT CHAIRSIDE. PT HAS NO FURTHER NEEDS AT THIS TIME.
--- NOTE | 2017-07-18 07:25 | NUR ---
REPORT GIVEN FROM DAKSHA VALLEJO. PATIENT SITTING UP IN THE CHAIR. TRACH CARE WENT OVER. PATIENT CURRENTLY HAS HUMMIDIFICATION ON. SWITCHED TO VOCAL CAP. PATIENT TOLERATED. WAS ABLE TO TALK WITH US ABOUT THE PLAN OF THE DAY. PATIENT REPORTS BREATHING WELL. SATING 93 PERCENT. SET UP FOR BREAKFAST. PATIENT ASKING " WHAT THE PLAN OF THE DAYS IS". UPDATED PATIENT WITH PLAN OF THE DAY.
--- NOTE | 2017-07-18 08:00 | NUR ---
rt in room to do cares. capped trach at this time. goal of 6 hours for capped. plan to ambulate in room with rt.
--- NOTE | 2017-07-18 08:44 | NUR ---
PER RN VS COULD BE TAKEN EARLY. VS WERE TAKEN AND DOCUMENTED.
--- NOTE | 2017-07-18 09:44 | NUR ---
patient sitting up in chair. daughter in room. updated dr. ribeiro about patient this morning. continue to do well on ra.
--- NOTE | 2017-07-18 10:39 | NUR ---
PATIENT AMBULATED IN SILVA. TOLERATING AMBULATING WITH WALKER INTO VISITOR SLIVA. SAT AT THE WINDOWS FOR AWHILE FOR PATIENT TO ENJOY. PATIENT NEEDING TO SIT MULTIBLE TIMES FOR A COUPLE MINUTES AND THEN WOULD GET UP AGAIN TO AMBULATE. PATIENT PLACED ON 2 L PER NC DUE TO COMPLAINT OF DIZZINESS. VITALS WNL. MET FAMILY IN SILVA. ASSISTED BACK TO ROOM. SAT IN BED.
--- NOTE | 2017-07-18 12:12 | NUR ---
RT IN ROOM TO SUCTION. RT TITUS WALKED THROUGH PROCESS FOR NURSING STAFF. PATIENT TOLERATED WELL. GETTING OUT SMALL AMOUNT OF SPUTUM. PATIENT ASSISTED TO THE BR WITH 1 ASSIST AND WALKER. AMBULATED TO THE BR AND ASSISTED TO THE CHAIR.
--- NOTE | 2017-07-18 12:30 | NUR ---
SCHEDULED MEDICATION GIVEN. HELD IV LASIX DUE TO PATIENT C/O CONTINUED DIZZINESS. TOLERATED THE ACTIVITY FROM BED TO CHAIR. VITALS WNL. FLUSHED BEFORE AND AFTER EACH MEDICATION. 50 ML FLUSHED COMPLETE. PATIENT TOLERATED WELL. NO NAUSEA AT THIS TIME. PATIENT DID STATE THAT SHE FEELS FULL.
--- NOTE | 2017-07-18 13:14 | NUR ---
UPDATED DR. RACHEL ABOUT PATIENT C/O OF DIZZINESS THROUGHOUT THE DAY. DR. RACHEL REQUESTING ORTHOSTATIC VITALS AND DAILY WT. DAILY WT WAS DONE 0600. CHARTED.
--- NOTE | 2017-07-18 13:35 | NUR ---
ORTHOSTATIC VITALS TAKEN. PATIENT TOLERATED WELL WITH NO DIZZINESS OR LIGHTHEADEDNESS. ORTHOSTATIC NEGATIVE. PATIENT WAS DIAPHORETIC. WASHED AND CHANGED GOWN. FAMILY HAD BEDSIDE. PATIENT STATING SHE IS STILL TOLERATING TACH BEING CAPPED. GOAL WAS TO 1400. PATIENT STATING SHE IS GOING TO REMAIN CAPPED LONG SHE NEEDS.
--- NOTE | 2017-07-18 13:50 | NUR ---
LASIX GIVEN. ASSESSMENT COMPLETE. PATIENT REMAINS ON 2 L PER NC FOR COMFORT. SATING AT 97 PERCENT. LUNGS CLEAR ON L SIDE. COARSE ON R SIDE.
--- NOTE | 2017-07-18 14:37 | NUR ---
PT AND FAMILY ADJUSTING TO NEW RM. NOTICING IMPROVMENT IN PT, STARTING TO GET HER SENSE OF HUMOR BACK! PT REACHED FOR MY HAND, HAD PRAYER TOGETHER. WILL FOLLOW NEEDED
--- NOTE | 2017-07-18 15:29 | NUR ---
patient called to go to the br. requesting cap to come off. called rt to assist. assisted patient to the br. patient voided. assisted back to chair. kana from rt to do trach care and remove cap and place vocal cap on. patient tolerated. hummidification placed on. patient stating that it feels better... not as heavy. family at bedside. patient tolerating well.
--- NOTE | 2017-07-18 15:30 | NUR ---
patient stating that she feels like she is " breathing hard". rt called to room. patient sating 90 percent on ra with hummidification. rt in room to instruct me to suction. patien suctioned twice. tolerating. minimal secretions out of suction. patient able to cough well. rt kana change inner cannula. patient tolerated. family at chair side. patient stated with the change of cannula that she was breathing better.
--- NOTE | 2017-07-18 15:33 | NUR ---
changed feeding tube bag. flushed and restarted feeding.
--- NOTE | 2017-07-18 16:43 | NUR ---
PATRICIA SLEEPING IN CHAIR. FAMILY BY SIDE. HUMMIDIFICATION CURRENTLY IN PLACE. CALL LIGHT WITHIN REACH.
--- NOTE | 2017-07-18 16:56 | NUR ---
PATIENT REQUESTING TO AMBULATE TO BED. ASSISTED TO BED. TOLERATING ACTIVITY WELL. PATIENT CONT TO BE ON RA VIA TRACH WITH HUMIDIFICATION. TUBE FEEDING RUNNING WNL. NO OTHER NEEDS AT THIS TIME. PATIENT HAS CALL LIGHT WITHIN REACH. SUCTION AT BEDSIDE. FAMILY IN ROOM.
--- NOTE | 2017-07-18 17:59 | NUR ---
DR. RACHEL IN ROOM TO ROUND.
--- NOTE | 2017-07-18 18:17 | NUR ---
PATIENT DID WELL TODAY. AMBULATED IN THE SILVA. TOLERATED CAPPED TRACH [id number]. NEEDING 2 L DURING THAT TIME FOR COMFORT. CURRENTLY HAS SPEECH VALVE ON TRACH. NEEDS TO COME OFF AT 2000 FOR BED. RT IN THE ROOM TO DO CARES. SUCTION X2. INNER CANNULA CHANGED. VOIDING WELL. FMAILY HAS BEED AT BEDSIDE MOST OF NIGHT. C/O DIZZINESS THROUGHOUT THE DAY. UPDATED BOTH DR. RACHEL AND DR. GOMEZ
--- NOTE | 2017-07-18 20:03 | NUR ---
received report from reggie bautista. pt in bed. family at bedside. expratiory wheezing heard bilateraly. offered rt for suctioning. rt arrived within 5 minutes. tube feeding running @75/hr. humidifier in place. nasogastric tube taped @ 78 inches. call light within reach. personal items within reach.
--- NOTE | 2017-07-18 20:41 | NUR ---
iv dressing coming loose with dried blood. changed dressing
--- NOTE | 2017-07-18 20:47 | NUR ---
PATIENT IN BED, REQUESTS 7UP AND TO GO TO BATHROOM. 1PA WITH FWW. VOIDED. GOT PATIENT BACK TO BED, WANTED TO SIT UP FOR AWHILE. TOLD PATIENT TO CALL WHEN READY TO GET BACK IN BED FULLY. WHITEBOARD UPDATED, GREEN SHEET SWITCHED OUT. ROOM TIDIED.
--- NOTE | 2017-07-18 23:15 | NUR ---
PT ATTEMPTING TO GET OUT OF BED WITHOUT ASSISTANCE. RN ASSISTED PT UP TO BATHROOM AND THEN BACK TO BED. PT TOLERATED AMBULATING WELL WITH FWW. WHEN BACK IN BED, PT COUGHED, ABOUT A TABLESPOON OF THICK WHITE SPUTUM CAME OUT OF HER TRACH, RN CLEANED AREA. PT IN NO DRISTRESS. CT REFUSED SUCTION. TRACH MASK IN PLACE. PT DENIES FURTHER NEEDS. [place] PUMP INFUSING TUBE FEEDING WELL. CALL LIGHT IN REACH.
--- NOTE | 2017-07-19 00:43 | NUR ---
PT APPEARS TO BE SLEEPING. RR WNL AND UNLABORED.
--- NOTE | 2017-07-19 01:00 | NUR ---
PT VISIBLE FROM NURSES STATION. SLEEPING. RR WNL AND UNLABORED. HUMIDIFIER IN PLACE AND TRACH CAP OF AT THIS TIME. BED ALARM SET.
--- NOTE | 2017-07-19 03:01 | NUR ---
PLACED NEW IV, PT TOLERATED WELL.
--- NOTE | 2017-07-19 03:30 | NUR ---
PT ATTEMPTED TO GET OUT OF BED ALONE. HELPED TO RESTROOM AND BACK TO BED. PT TOLLERATED WELL. GAVE WATER. NO PAIN AT THIS TIME. NOTICED PT NG TUBE WAS LEAKING ON GOWN. WAS ABLE TO UNCLOG TUBE WITH USING 10 ML SURINGE FOLLOWED BY 50ML. EDUCATED ON SAFETY AND CALL LIGHT. PT IS VISIBLE FROM NURSING STATION. HUMIDIFIER IN PLACE. PT RESPIRATIONS ARE UNLABORED AND EQUAL. SIDE RAILS UP X4. CALL LIGHT AND PERSONAL ITEMS WITHIN REACH.
--- NOTE | 2017-07-19 05:11 | NUR ---
PT HAD A GOOD NIGHT. SLEPT WELL THROUGHOUT THE NIGHT. NEW IV STARTED IN RIGHT FOREARM. CAP OFF TRACH. HUMIDIFIED AIR IN PLACE. NO PAIN OR DISCOMFORT. ON RA. SBA WITH FWW. DAILY WEIGHTS. SCHEDULED NASOTRACHIAL FLUSHES Q6H.
--- NOTE | 2017-07-19 07:46 | NUR ---
BEDSIDE REPORT RECEIVED FROM DAKSHA. ASSUMING PATIENT CARE AT THIS TIME. PATIENT SITTING IN BED AWAKE, REPORTS NO PAIN. FEEDING TUBE INFUSING. TRACH IN PLACE AND ON VAPO THERM. CALL LIGHT IN REACH.
--- NOTE | 2017-07-19 08:34 | NUR ---
PT AWAKE IN BED. AM CARE. SET UP FOR BKF. NOW PT IS IN WORKING WITH.
--- NOTE | 2017-07-19 08:55 | NUR ---
IN TO ROOM TO ASSESS PATIENT. PATIENT DENIES PAIN. NO NAUSEA. TRACH IN PLACE. IV SITE PATENT. ADB SOFT, POSITIVE BOWEL TONES. ABD MIDLINE INCISION HEALED. NO EDEMA NOTED. LUNGS COARSE AND WHEEZE. RT WAS CALLED AND ADMINISTERED A NEB TX. MORNING MEDS ADMINISTERED AND FEEDING TUBE WAS FLUSHED WITH 50 OF WATER. PATIENT RESTING IN BED AT THIS TIME. CALL LIGHT IN REACH. FAMILY AT BEDSIDE.
--- NOTE | 2017-07-19 10:20 | NUR ---
PATIENT ASSISTED TO BATHROOM WITH 1PERS ASSIST WITH FWW. TOLERATED WELL. NO DISTRESS.
--- NOTE | 2017-07-19 11:00 | NUR ---
PATIENT UP AMBULATING WITH PHYSICAL THERAPIST AND RESPIRATORY THERAPIST. TOLERATED WELL. NO DISTRESS.
--- NOTE | 2017-07-19 12:11 | NUR ---
PT SITTING IN CHAIR WITH DENISSE BY HER SIDE. SHE SPOKE TO ME WITH A CLEAR VOICE-WELCOMING ME IN. SHE REACHED FOR MY HAND ALWAYS AND SMILED. WE HAD A PLEASANT CONVERSATION, PRAYED TOGETHER USUAL AND I LET HER REST. SHE SEEMED TO BE GETTING SOMEWHAT DROWSY. WILL CONTINUE TO FOLLOW
--- NOTE | 2017-07-19 12:58 | NUR ---
PT UP IN HER CHAIR DOING WELL. FRESH ICE WATER
--- NOTE | 2017-07-19 13:29 | NUR ---
PATIENT CALLED AND SAID THAT SHE HAD HARD TIME CATCHING HER BREATH. RT WAS CALLLED. ADÁN IN TO ROOM TO ASSESS PATIENT, SUCTIONNED AND DID TRACH CARE. PATIENT REPORTED RELIEF AFTER SUCTIONNING. PATIENT WAS ASSISTED TO BATHROOM AND HAD A BM.ASSISTED PATIENT BACK TO CHAIR. RESTING AT THE CHAIR, FAMILY IN ROOM.
--- NOTE | 2017-07-19 14:43 | NUR ---
PATIENT NOW IN ROOM 111. SHE IS TOLERATING THE ENTERAL FEEDING WELL. STILL USING JEVITY 1.5 AT 75 ML/HR. PATIENT IS ALLOWED TO HAVE A REGULAR DIET DESIRED. TODAY SHE ATE CORNBREAD, A FEW BITES OF FRUIT, AND DRANK ALMOST ALL OF THE 1% MILK - THIS IS THE MOST SHE HAS EATEN BY MOUTH SINCE BEING HERE. PER REVIEW OF NOTES, PATIENT MAY BE ABLE TO HAVE TRACHEOSTOMY REMOVED NEXT WEEK IF ALL GOES WELL. CURRENTLY SHE IS HAVING DIFFICULTY SWALLOWING PILLS. WILL NEED TO MONITOR SWALLOWING ABILITY OVER THE NEXT WEEK. NO CHANGES IN NUTRITION REGIMEN AT THIS TIME. WILL CONTINUE TO FOLLOW.
--- NOTE | 2017-07-19 14:44 | NUR ---
PT HAS CALL LIGHT IN REACH. VITAL DONE. DOING WELL. WANTED A COKE.
--- NOTE | 2017-07-19 14:53 | NUR ---
DR RACHEL IN ROOM TO SEE AND EVALUATE PATIENT AND DISCUSS PLAN OF CARE WITH PATIENT AND FAMILY.
--- NOTE | 2017-07-19 16:56 | NUR ---
CHANGED FEEDING BAG. TUBE FLUSHED AND FEEDING RESTARTED. PATIENT TOLERATED WELL. FAMILY AT BEDSIDE.
--- NOTE | 2017-07-19 18:37 | NUR ---
PATIENT HAD DONE WELL TODAY. WALKED WITH PHISCAL THERAPIST TWICE. SPENT MOST OF THE DAY SITTING IN THE CHAIR. TRACH WAS CLEANED BY RESPIRATORY THERAPIST TODAY. HAD 1 NEB TX TODAY FOR DYSPNEA. HAD 3 BMs TODAY. GOOD URINE OUTPUT. TRACH IS CAPPED FOR A 24HRS TRIAL. FEEDING TUBE BAG WAS CHANGED THIS AFTERNOON. PATIENT HAD SMALL MEALS AND TOLERATED WELL. PATIENT IS 1 PERS ASSIST WITH FWW.
--- NOTE | 2017-07-19 19:10 | NUR ---
RECEIVED REPORT FROM DAY SHIFT RN. PATIENT IS RESTING IN RECLINER. PATIENT DENIES ANY PAIN OR SOB. PATIENT DENIES ANY NEEDS AT THIS TIME. CALL LIGHT IN REACH.
--- NOTE | 2017-07-19 20:27 | NUR ---
VITALS AND I&OS DONE AND CHARTED. HELPED HER GO TO THE BATHROOM WITH HER WALKER, AND BACK TO BED. HOOKED UP SCDS AND GOT HER MORE ICE. SHE SAID SHE NEEDED NOTHING ELSE AT THIS TIME. BEDSIDE TABLE AND CALL LIGHT WITHIN REACH.
--- NOTE | 2017-07-19 20:45 | NUR ---
PT'S ASSESSMENT COMPLETED, MEDICATIONS GIVEN AND CRUSHED IN APPLESAUCE. FEEDING TUBE ON CONTINUOUS 75 MLS PER HOUR AND FLUSHED WITH 50MLS. MIDLINE ABDOMINAL INCISION IS HEALED WITH WELL APPROXIMATED EDGES. TRACH IS CAPPED FOR 24 HOUR TRIAL. SUCTION AT BEDSIDE FOR PT'S PRN USE. IV FLUSHES WELL, PT REPORTS NO PAIN AT THIS TIME. HEEL PROTECTORS AND SCDS IN PLACE.
--- NOTE | 2017-07-19 21:05 | NUR ---
TOOL AND PRODUCTION PLANNER ASSISTED PATIENT INTO BED. PATIENT IS NOW RESTING IN BED. PATIENT TOLERATED ACTIVITY WELL. PATIENT DENIES ANY NEEDS AT THIS TIME. CALL LIGHT IN REACH.
--- NOTE | 2017-07-19 22:14 | NUR ---
DR. GOMEZ CALLED FOR AN UPDATE ON THE PATIENT. NO NEW ORDERS AT THIS TIME.
--- NOTE | 2017-07-19 23:46 | NUR ---
WHEN CHECKING ON PATIENT SHE STATED "I FEEL A LITTLE SOB" PATIENTS OXYGEN SATURATION CHECKED AND IT IS 95 % ON RA. PATIENT REPOSITIONED IN BED TO SIT UP HIGHER. RT CALLED TO EVALAUTED PATIENT. AFTER REPOSTIIONING THE PATIENT STATED "THAT DID THE TRICK" PATIENT DENIED A NEB TREATMENT FROM RT. PATIENT DENIES ANY SOB AFTER INTERVENTIONS. NO FURTHER NEEDS NOTED. CALL LIGHT IN REACH.
--- NOTE | 2017-07-20 00:15 | NUR ---
RT IN THE ROOM. TRACH SUCTION PERFORMED.
--- NOTE | 2017-07-20 02:21 | NUR ---
PT IS AWAKE IN BED, HELPED PT TO RESTROOM. FLUSHED HER FEEDING TUBE WITH 50MLS AND RESUMED TUBED FEEDING, ADDED ANOTHER CAN OF JEVITY. PT HAS NO FURTHER REQUESTS AT THIS TIME. HEEL PROTECTORS AND SCDS IN PLACE.
--- NOTE | 2017-07-20 02:24 | NUR ---
VITALS AND I&OS DONE AND CHARTED. HELPED PT TO THE BATHROOM AND BACK TO BED WITH HER WALKER. ASKED HER IF SHE NEEDED ANYTHING ELSE AT THIS TIME? SHE SAID NO SHE DID NOT.BEDSIDE TABLE WITHIN REACH AND CALL LIGHT ON HER BED NEXT TO HER.
--- NOTE | 2017-07-20 04:29 | NUR ---
PATIENT CONTINUES TO REST IN BED WITH EYES CLOSED. BREATHING IS EVEN AND UNLABORED, RR 17. PATIENT CONTINUES TO RECEIVE CONTINUOUS FEEDINGS. CALL LIGHT IN REACH.
--- NOTE | 2017-07-20 04:55 | NUR ---
PATIENT RESTED WELL THROUGHOUT THE SHIFT. PATIENT DENIED ANY PAIN OR NASUEA. PATIENT HAS CONTINOUS FEEDINGS BEING ADMINISTERED. PATIENT IS ALSO ALLOWED A REGULAR DIET TOLERATED. PATIENT HAS A TRACH. PATIENT DID COMPLAIN OF SOB AT ONE TIME, BUT WITH REPOSITIONING IT WAS RESOLVED. PATIENT IS ON RA. PATIENT HAS SCDS IN PLACE. PATIENT IS SL AND IV FLUSHES WELL. PATIENTS TRACH RECEIVED SUCTIONING X1. PATIENTS MID ABD INCISION IS WELL APPROXIMATED. PATIENT IS A 1PA W/FWW. PATIENT IS ABLE TO SWALLOW PILLS CRUSHED IN APPLESAUCE. PATIENT IS AAOX3 AND USES CALL LIGHT APPROPRIATELY.
--- NOTE | 2017-07-20 06:18 | NUR ---
VITALS DONE AND CHARTED. SHE DID NOT HAVE TO URINATE YET AND WOULD LIKE TO WAIT TO GET UP AND GO TO THE BATHROOM. I ASKED HER TO CALL WHEN SHE IS READY AND I WILL GET HER DAILY WEIGHT THEN WELL. BEDSIDE TABLE AND CALL LIGHT WITHIN REACH.
--- NOTE | 2017-07-20 06:50 | NUR ---
HELPED PT TO RESTROOM AND OBTAINED PT'S WEIGHT. PT BACK IN BED WITH SCD'S ON, PT WOULD NOT LIKE TO WEAR HEEL PROTECTORS AT THIS TIME. ADDED ICE TO WATER, PT HAS NO FURTHER REQUESTS AT THIS TIME.
--- NOTE | 2017-07-20 07:33 | NUR ---
REPORT RECEIVED FROM VINCENT. PATIENT AWAKE SITTING IN BED DENIES PAIN. TRACH WAS CAPPED ALL NIGHT AND PATIENT TOLERATED WELL. FEEDING TUBE IN PLACE AND INFUSING WELL. NO APPARENT DISTRESS. CALL LIGHT IN REACH.
--- NOTE | 2017-07-20 09:16 | NUR ---
DR GOMEZ IN ROOM WITH [facility] AND [facility] RESPIRATORY THERAPISTS TO REMOVE TRACH. PATIENT TOLERATED WELL. NEB TX ADMINISTERED PER RT. ORDER TO DECREASED TUBE FEEDING TO 45ML/HR. PATIENT RESTING IN BED NO APPARENT DISTRESS.
--- NOTE | 2017-07-20 10:30 | NUR ---
PT RESTING IN CHAIR-FAMILY AT HER SIDE. SHE IS HAVING BREATHING TREATMENT, A LITTLE DIFFICULT TO TALK FOR HER. JUST STAYED A MOMENT, PRAYED WITH FAMILY AT PT'S REQUEST. WITH A BIG SMILE SHE SAID "THANK YOU". WILL FOLLOW NEEDED
--- NOTE | 2017-07-20 11:14 | NUR ---
FEEDING WAS BEEPING BECAUSE IT WAS CLOGGED. MULTIPLE ATTEMPT MADE BY 3 NURSES WITH NO SUCCES. CALL[address] GOMEZ AND NOTIFIED HIM ABOUT THAT. HE ORDER TO "PULL THE TUBE OUT". THE TUBE WAS PULLED. PATIENT TOLERATED WELL. PATIENT RESTING IN THE CHAIR AT THIS TIME, FAMILY IN ROOM. NO APPARENT DISTRESS. WILL CONTINUE. CALL LIGHT IN REACH.
--- NOTE | 2017-07-20 12:36 | NUR ---
PATIENT GOT SHOWER DIDN'T WASH HAIR DO TO HER GETTING HER TRACHEOSTOMY OUT THIS MORNING DOCTORS DIDN'T WANT TO GET IT WET. SITTING UP IN HER CHAIR EATING LUNCH.
--- NOTE | 2017-07-20 12:40 | NUR ---
DR GOMEZ CALLED TO GET UPDATE ON PATIENT AFTER TRACH WAS REMOVED THIS AM. PATIENT IS SITTING IN THE CHAIR EATING LUNCH. FAMILY AT BEDSIDE. NO APPARENT DISTRESS NOTED. PATIENT DENIES SOB.
--- NOTE | 2017-07-20 13:00 | NUR ---
SPOKE WITH PATIENT AND FAMILY IN ROOM. PATIENT STATES SHE IS FEELING WEAK, BUT BETTER. PATIENT HAD TRACH AND FEEDING TUBE REMOVED TODAY. DISCUSSED WITH THEM PLANS FOR HER TO CONTINUE WORK WITH RESPIRATORY AND NURSES. ENCOURAGED SMALL FREQUENT MEALS TO GET ENOUGH CALORIES. QUESTIONS ANSWERED. ALL THREE ARE THANKFUL FOR ALL THE HELP. NO FURTHER QUESTIONS AT THIS TIME.
--- NOTE | 2017-07-20 13:41 | NUR ---
DR RACHEL WAS IN ROOM TO SEE AND EVALUATE PATIENT. DISCUSS PLAN OF CARE WITH PATIENT AND FAMILY. PATIENT TOLERATED FULL LIQUID WELL. DRUNK HER ENSURE, JELLO AND PUDDING. FAMILY AT BEDSIDE.
--- NOTE | 2017-07-20 15:32 | NUR ---
PATIENT CALLED AND REQUESTED HELP TO GO BACK TO BED. PATIENT WAS ASSISTED TO BATHROOM THEN TO BED. RESTING IN BED AT THIS TIME. FAMILY AT BEDSIDE.
--- NOTE | 2017-07-20 18:40 | NUR ---
PATIENT HAD A GOOD DAY. TRACH AND FEEDING TUBE WERE D/C THIS AM. PATIENT HAD PHYSICAL THERAPY TWICE TODAY AND TOLERATED WELL. PATIENT IS FULL LIQUID NOW AND TOLERATED WELL. TRACH SITE COVER WITH GAUZE. PATIENT HAD 1 BM TODAY. SPENT MOST OF THE DAY SITTING IN THE CHAIR. HAS BEEN UP TO BATHROOM MULTIPLE TIMES. LUNGS CLEAR AND MILDLY DIM IN THE BASES. PATIENT ABLE TO CLEAR UP SECRETION BY COUGHING. VERY GOOD PROGRESS.
--- NOTE | 2017-07-20 19:20 | NUR ---
RECEIVED REPORT, PT IS RESTING WITH EYES CLOSED, REPRIATIONS EVEN AND NONLABORED. HEEL PROTECTORS AND SCDS IN PLACE. CALL LIGHT IS WITHIN REACH. GAUZE COVERING STOMA FROM TRACH IS CDI.
--- NOTE | 2017-07-20 19:31 | NUR ---
ROUNDED CHARGE. PATIENT IS RESTING IN BED WITH EYES CLOSED. PATIENTS BREATHING IS EVEN AND UNLABORED, RR17. CALL LIGHT IN REACH.
--- NOTE | 2017-07-20 21:00 | NUR ---
PT IS AWAKE IN BED, EVENING MEDICATIONS GIVEN, SCDS AND HEEL PROTECTORS IN PLACE. PT HAS FRESH WATER AND OFFERED MORE ENSURE. PT'S RESPIRATIONS ARE EVEN AND NONLABORED. SLIGHT EXP WHEEZES AUSCULTATED BUT CLEARED WITH COUGH. TRACH WAS EXTUBATED EARLIER TODAY AND GAUZE DRESSING IS CDI. PT IS READY FOR BED AND HAS NO FURTHER REQUESTS AT THIS TIME.
--- NOTE | 2017-07-21 00:09 | NUR ---
PT IS RESTING WITH EYES CLOSED, RESPIRATIONS EVEN AND NONLABORED. CALL LIGHT WITHIN REACH.
--- NOTE | 2017-07-21 02:12 | NUR ---
PATIENT ASSISTED TO THE RESTROOM. PATIENT IS A SBA AND IS STEADY ON HER FEET. PATIENT DENIES ANY SOB WITH AMBULATION.
--- NOTE | 2017-07-21 02:19 | NUR ---
HELPED PT TO RESTROOM, SHE VOIDED 450MLS OF YELLOW URNINE. BROUGHT PT ANOTHER ENSURE TO DRINK. PT IS BACK IN BED WITH SCDS AND HEEL PROTECTORS IN PLACE. PT HAS NO FURTHER REQUESTS AT THIS TIME. CALL LIGHT IS WITHIN REACH.
--- NOTE | 2017-07-21 04:50 | NUR ---
PT SLEPT WELL THROUGH THE NIGHT WITH MINIMAL INTERUPTIONS. SHE CONTINUES TO DO WELL WITHOUT THE TRACH AND IS ABLE TO COUGH TO CLEAR SECRETIONS. PT LIKE TO KEEP SUCTION CLOSE BY OUT OF HABIT. DRESSING OVER EXTUBATED TRACH SITE IS CDI. PT AMBULATED TO THE RESTROOM WELL WITH 1 PERSON STANDBY ASSIST AND IS VOIDING QS. PT IS ON FULL LIQUID DIET AND ENSURE INTAKE WAS ENCOURAGED THROUGH THE NIGHT WHEN AWAKE.
--- NOTE | 2017-07-21 06:53 | NUR ---
HELPED PT UP TO RESTROOM THIS MORNING AND OBTAINED PT'S VS AND WEIGHT. PT REPORTED FEELING A LITTLE BLOATED BUT SAYS IT HAS SUBSIDED SOME AFTER HAVING A BM. ADVISED PT TO LET US KNOW IF BLOATING CONTINUES. PT IS AWAKE IN BED AT THIS TIME AND WOULD LIKE TO KEEP SCDS AND HEEL PROTECTORS OFF FOR A BIT SHE HAD THEM ON ALL NIGHT.
--- NOTE | 2017-07-21 08:20 | NUR ---
ROUNDED IN ROOM. PATIENT SITTING UP IN BED. TOLERATING FULL LIQUID DIET WELL. NO OTHER NEEDS AT THIS TIME. PATIENT STATING THAT SHE WENT TO BED EARLY, BUT WAS WOKE FOR VITALS AND MEDICATIONS. PATIENT LAUGHED AND STATED THAT SHE THINKS SHE IS JUST MISSING HOME. PATIENT IN VERY GOOD SPIRITS THIS MORNING.
--- NOTE | 2017-07-21 09:44 | NUR ---
PT IN BED AWAKE. AM CARE. PICKED UP ROOM. SET UP BRK AND THEN TOOK TRAY OUT.
--- NOTE | 2017-07-21 11:35 | NUR ---
PT NOW BACK IN BED. DOING WELL. AM CARE. BRUSHED TEETH COMBED HAIR. WASHED FACE
--- NOTE | 2017-07-21 14:11 | NUR ---
PT REQUESTED TO AMBULATE IN THE SILVA. ASSISTED PT TO BATHROOM AND AMBULATED DOWN TO CCU DOORS AND BACK. PT TOLERATED AMBULATION WELL. NO COMPLAINTS. PT REQUESTED TO SIT IN THE CHAIR FOR A WHILE. ASSISTED PT TO CHIAR AND POSITIONED COMFORTABLY. PERSONAL BELONGINGS IN REACH.
--- NOTE | 2017-07-21 18:15 | NUR ---
PT IMPROVED THIS SHIFT. AMBULATED WITH RN AND PHYSICAL THERAPY, PT REPORTS FEELING WEAKER THAN YESTERDAY, BUT STRONGER THAN NEW NORMAL. PT TOLERATING FULL LIQUIDS WELL. OFFERED ENSURES BETWEEN MEALS. PT TAKES MEDS CRUSHED IN APPLESAUCE. PT VOIDING WELL. CALLS APPROPRATLY.
--- NOTE | 2017-07-21 19:00 | NUR ---
SHIFT REPORT RECIEVED. PATIENT UP IN RECLINER VISITING WITH FAMILY. PATIENT APPEARS TO BE IN GOOD SPIRITS. SHE REPORTS HAVING A GOOD DAY AND DENIES NEEDS AT THIS TIME.
--- NOTE | 2017-07-21 20:30 | NUR ---
PATIENT RESTING IN BED. SHE DENIES PAIN OR NAUSEA. PATIENT APPEARS DROWSEY, SHE IS ORIENTED X4 BUT APPEARS TO HAVE DIFFICULTY FINDINGS THE CORRECT WORDS. OCCATIONALY THE PATIENT HAS TO ANSWER A QUESTION TWICE TO FIND THE WORDS SHE IS LOOKING FOR. AN ORRACTIONAL RUB WAS HEARED IN THE RIGHT UPPER LOBE ANTERIORLY. LEFT UPPER LOBE WAS CLEAR. SLIGHTLY EXPIRTORY WHEEZE HEARD IN THE BASES BILATERALLY, THIS WAS CLEARED AFTER SEVERAL COUGHS. THE DRESSING ON THE PATIENT'S NECK IS C/D/I. MIDLINE ABD INCISION OPEN TO AIR, WNL. ABD IS MILDLY DISTENDED, NONTENDER AND BOWEL SOUNDS ACTIVE. CMS IS INTACT. PATIENT'S EYES ARE WATERY. EYE DROPS ADMINISTERED PER ORDERS. LEFT EYE IS RED WITH THE LOWER LID DROOPING SLIGHTLY. PATIENT STATES THIS IS NORMAL. PATIENT DENIES OTHER NEEDS AT THIS TIME. CALL LIGHT IN REACH.
--- NOTE | 2017-07-21 22:00 | NUR ---
PATIENT IN BED. LIGHTS TURNED OFF IN ROOM PER REQUEST. PATIENT WAS QUESTIONING THE "PROTOCOL" THAT DR. RACHEL WOULD LIKE TO FOLLOW FOR TONIGHT. RN QUESTIONED THE PATIENT'S MEANING AND PATINET ONLY SAID "I WANT TO DO WHAT DR. RACHEL ASKED ME TO DO". RN ENSURED PATIENT THAT THE NURSING STAFF WOULD BE HERE ALL NIGHT FOR ANY NEEDS SHE HAD AND THAT THE PLAN WAS FOR HER TO GET SOME REST. PATIENT AGREES TO THIS AND DENIES FURTHER NEEDS AT THIS TIME. CALL LIGHT IN REACH. CURTAIN LEFT OPEN TO HALLWAY PER PATIENT REQUEST.
--- NOTE | 2017-07-22 00:20 | NUR ---
PATIENT RESTING IN BED. EYES CLOSED. RR 16. CALL LIGHT IN REACH.
--- NOTE | 2017-07-22 02:15 | NUR ---
PATIENT UP TO BATHROOM. SHE REPORTS FEELING TEMPORARLY CONFUSED WHEN SHE WOKE UP BUT IS NOW AAOX3. SBA TO BATHROOM W/FWW. PATIENT TOLERATED WELL. BACK TO BED. POSITIONED FOR COMFORT. CALL LIGHT IN REACH.
--- NOTE | 2017-07-22 04:00 | NUR ---
PATIENT RESTING IN BED, EYES CLOSED. RR 16. CALL LIGHT IN REACH.
--- NOTE | 2017-07-22 04:55 | NUR ---
RN [place] ASSISTED PATIENT TO THE BATHROOM. THIS RN ASSISTED PATIENT BACK TO BED. ASSESSMENT COMPLETE. PATIENT'S LUNGS ARE CLEAR. SHE DENIES PAIN. DRESSING ON NECK IS C/D/I. CMS INTACT. PATIENT HAS SOME SECRETIONS IN HER RIGHT EYE, FLUSHED WITH NS AND PATIENT DENIES PAIN. PATIENT IN BED RESTING. DENIES NEEDS. CALL LIGHT IN HAND. FRESH WATER PROVIDED.
--- NOTE | 2017-07-22 05:22 | NUR ---
PATIENT RESTED WELL THROUGHOUT THE NIGHTS. SHE HAD MOMENTS OF CONFUSION AFTER WAKING UP DURING THE NIGHT, BUT WAS ORIENTED X4 AFTER THIS CLEARED. 1PA TO BATHROOM W/FWW. NO PAIN. TOLERATING ORAL FLUIDS. OUTPUT QS. DRESSING ON NECK C/D/I. SCDS.
--- NOTE | 2017-07-22 06:00 | NUR ---
VITALS AND I&OS DONE AND CHARTED. BEDSIDE TABLE AND CALL LIGHT WITHIN REACH. PT NEEDS NOTHING MORE AT THIS TIME.
--- NOTE | 2017-07-22 06:20 | NUR ---
PATIENT UP FOR DAILY WT. MORNING MEDS GIVEN. PATIENT TO RECLINER. PERSONAL BELONGINGS IN REACH. CALL LIGHT IN HAND. NO OTHER NEEDS AT THIS TIME.
--- NOTE | 2017-07-22 07:08 | NUR ---
RECIEVED BEDSIDE REPORT FROM YONI GAGE. PT AWAKE AND ALERT IN CHAIR. PT DENIES PAIN AT THIS TIME. DENIES NAUSEA. NOC RN REPORTS CHANGEING GAUZE OVER TRACH SITE OVERNIGHT. SCANT AMT OF LIGHT GREENISH DRAINAGE ON GAUZE AND AROUND SITE. PT REPORTS EYE DISCHARGE OVERNIGHT, DENIES ISSUES AT THIS TIME.
--- NOTE | 2017-07-22 08:01 | NUR ---
PATIENT IN CHAIR, READY FOR BREAKFAST. WILL ASK DR. GOMEZ IF PATIENT CAN SHOWER. WHITEBOARD UPDATED, ROOM TIDIED.
--- NOTE | 2017-07-22 10:03 | NUR ---
CALLED TO ASK IF ANY SPECIAL PRECAUTIONS TO BE TAKEN IF PT SHOWERS. SAID NO SPECIAL PRECAUTIONS.
--- NOTE | 2017-07-22 10:17 | NUR ---
PT UP TO SHOWER WITH TECHNICAL HEALTHCARE CONSULTANT. AVOIDED TRACH SITE WITH WATER. PT TOLERATED SHOWER WILL. FAMILY AT BEDSIDE.
[2017-07-22] MEDS ORDERED: POTASSIUM CHLO10 MEQ PO (11:57)
[2017-07-22] MEDS ORDERED: METOPROLOL SUCC25 MG PO (11:57)
[2017-07-22] MEDS ORDERED: FUROSEMIDE20 MG PO (11:58)
[2017-07-22] MEDS ORDERED: MAG-OXIDE400 MG PO (11:58)
--- NOTE | 2017-07-22 12:48 | NUR ---
PER DR GOMEZ, OK TO TAKE OUT IV AND LEAVE IT OUT. IV SCHEDULED FOR ROTATION TODAY.
--- NOTE | 2017-07-22 14:20 | NUR ---
DIRECTOR INVESTMENT BANKING REPORTED TO RN THAT PT HAD A LOW BP AT ROUTINE VITALS. CALLED DR GOMEZ TO ADVISE. HE RECOMMENDED ENCOURAGE WATER AND MONITOR.
--- NOTE | 2017-07-22 17:54 | NUR ---
PT UP TO CHAIR MOST OF DAY. DIET ADVANCED TO SOFT, ENCOUAGE ENSURE AND FLUIDS. IV DISCONTINUED, MD ORDER TO LEAVE OUT. VOIDS QS, BM THIS SHIFT. ONE EPISODE OF SOFT BP, DR GOMEZ IS AWARE, ADVISE TO ENCOURAGE FLUIDS. DAILY STANDING WEIGHT, STABLE.
--- NOTE | 2017-07-22 19:00 | NUR ---
SHIFT REPORT RECIEVED. PATIENT RESTING IN RECLINER READING. SHE DENIES NEEDS AT THIS TIME. APPEARS TO BE IN GOOD SPIRITS. CALL LIGHT IN REACH.
--- NOTE | 2017-07-22 19:53 | NUR ---
VITALS AND I&OS DONE AND CHARTED. HELPER PT TO THE BATHROOM AND BACK TO BED FROM HER CHAIR. GOT FRESH WATER . CALL LIGHT IN HER HAND AND BEDSIDE TABLE WITHIN REACH.
--- NOTE | 2017-07-22 21:15 | NUR ---
EVEING MEDS GIVEN PER ORDER. PATIENT APPEARED TO BE SLEEPING WHEN THE RN ENTERED THE ROOM. SHE AROUSED EASILY TO VOICE. PATIENT IS ORIENTED X4. HER RIGHT EYE APPEARS LESS RED THAN IT WAS THE PREVIOUS SHIFT. PATIENT DENIES PAIN OR NAUSEA. GAUZE ON NECK IS C/D/I. ABD INCISION IS WNL. ABD IS MILDLY DISTENDED, NONTENDER WITH ACTIVE BOWEL SOUNDS. CMS INTACT. SCDS IN USE. FRESH WATER AVAILABLE. PATIENT ON RA, O2 SAT 96%. LUNG SOUNDS CLEAR IN UPPER LOBES AND DIMINISHED IN THE BASES. ENCOURAGED IS. PATIENT RESTING IN BED, REPORTS BEING COMFORTABLE. CALL LIGHT IN REACH.
--- NOTE | 2017-07-22 23:30 | NUR ---
PATIENT RESTING IN BED. EYES CLOSED. RR 16. CALL LIGHT IN REACH.
--- NOTE | 2017-07-23 00:12 | NUR ---
PATIENT RESTING. EYES CLOSED. RR 16. CALL LIGHT IN REACH.
--- NOTE | 2017-07-23 02:00 | NUR ---
PATIENT RESTING. EYES CLOSED. RR16. CALL LIGHT IN REACH.
--- NOTE | 2017-07-23 04:26 | NUR ---
PATIENT RESTING IN BED. EYES CLOSED. RR18. CALL LIGHT IN REACH.
--- NOTE | 2017-07-23 05:54 | NUR ---
PATIENT RESTED WELL THROUGHOUT SHIFT. ROOM AIR. AAOX3. SBA W/FWW. NO IV. TOLERATING SOFT DIET. NO PAIN. LUNG SOUNDS CLEAR.
--- NOTE | 2017-07-23 06:13 | NUR ---
PATIENT UP FOR DAILY WT. SBA TO BEDSIDE SCALE. PATIENT BACK IN BED AND INDEPENDENTLY POSITIONED HERSELF. DENIED NEEDS. MORNING MEDS GIVEN PER ORDER. PATIENT IS EXCITED TO RETURN HOME TO DAY. APPEARS IN GOOD SPIRITS.
--- NOTE | 2017-07-23 07:20 | NUR ---
RECIEVED BEDSIDE REPORT FROM YONI GAGE. PT AWAKE AND ALERT IN BED. PT HAD QUESTIONS ABOUT DISCHARGE, ALL QUESTIONS ANSWERED. PT HAS ALL BELONGINGS IN REACH.
--- NOTE | 2017-07-23 09:18 | NUR ---
TALKED WITH PT DAUGHTER YANI ABOUT HER MOTHER AND WHAT THEY WANTED TO DO. WE SET UP TIME TO MEET AT 10ISH TO DISCUSS THE PLAN OF CARE WITH HER SHE FEELS HER MOTHER IS NOT ABLE TO RETURN HOME AGAIN.
--- NOTE | 2017-07-23 10:08 | NUR ---
DISCHARGE TEACHING COMPLETE. DISCUSSED CURRENT CONDITION, WHEN TO CALL MD, FOLLOW UP, RX. ALL QUESTIONS ANSWERED. PT AND FAMILY READY TO GO WHEN [facility] ARRIVES.
--- NOTE | 2017-07-23 10:55 | NUR ---
ACCORDING TO TONIA GANT ON MED SURG, SHE SENT ORDER AND PAPERWORK TO [facility]. STATES SHE CALLED AND TALKED WITH THEM. CALLED AND SPOKE WITH RASHEED ABOUT THIS PT AND SHE SAID IT WAS ALL GOOD, THEN GOT A PHONE MESSAGE STATING SHE NEEDING PT NIRAV CLEMENTS AND DR VOGEL #. THESE WERE FAXED TO [facility].
--- NOTE | 2017-07-23 11:00 | NUR ---
PATIENT WAS HALF WAY DRESSED. VERY EXCITED TO GO HOME.
--- NOTE | 2017-07-23 12:08 | NUR ---
BROUGHT MAIL TO PT, AND VISITED WITH FAMILY-GOING HOME TODAY. WE HAVE SEEN A STRONG FAMILY CARE FOR EACH OTHER THROUGH THIS ORDEAL. EXTENDED A BLESSING AND HAD ONE LAST PRAYER WITH PT AND FAMILY BEFORE LEAVING. GOD BLESS THEM, AND MAY PT GET STRONGER EACH DAY.
--- NOTE | 2017-07-24 09:12 | DS ---
[facility] [address], [place] [address] Signed ADMISSION DATE: 06/13/2017 DISCHARGE DATE: 07/23/2017 REASON FOR ADMISSION: This is an 86-year-old white woman, who is a patient of Dr. Melo Guo. She is chronically anticoagulated with Xarelto for atrial fibrillation and known congestive heart failure, also taking digoxin. She was admitted with generalized abdominal pain that worsened during the day of admission and a CT scan was performed showing no specific abnormality. She was admitted to Dr. Lopez, hospitalist for further evaluation. Close observation showed her to be worsening. Her initial white count was 16.3, 4% bands, digoxin level therapeutic at 0.99, and bilirubin elevated to 2.0 with lipase and amylase not obtained. Her symptoms worsened and an ultrasound was performed the following day, which showed some debris within the gallbladder. Surgical consultation was undertaken.She was identified to have severe generalized peritonitis. HOSPITAL COURSE: On June 14, 2017 in the early evening, she underwent urgent diagnostic laparoscopy where she was found to have necrotic bowel.Conversion to open laparotomy with small-bowel resection with a dabh-wd-geyl (functional end-to-end) anastomosis and lysis of adhesions. Peritoneal lavage and evacuation of hemoperitoneum was undertaken as well. Her ischemic bowel was related to internal herniation beneath a fibrous band in the retroperitoneum. The patient was left intubated overnight. She was noted to have a significant right pleural effusion and basilar atelectasis, but was alert and oriented and much improved following resection of bowel. She did have hypotension requiring norepinephrine pressor support. She failed her weaning trial. She did have recovery of her neurologic function well. A central line was placed for additional administration of norepinephrine. The left subclavian line was placed but a small apical pneumothorax was noted. She was closely monitored and a chest tube was not required. The small pneumothorax resolved without problem. She was extubated by [facility] [address], which she tolerated for a number of hours, but had progressive weakening and required re-intubation due to respiratory acidosis. She was oxygenating well, however. generalized weakness and respiratory fatigue was significant and mandating reintubation. She had bradycardic episodes with straining as well. Digoxin Electronically Signed By: SHUKRI GOMEZ MD 07/24/17 0912 PATIENT NAME: SAEED OBRIEN DISCHARGE SUMMARY DATE OF : 32 PHYSICIAN: SHUKRI GOMEZ MD REPORT #: [id number] REPORT IS CONFIDENTIAL AND NOT TO BE RELEASED WITHOUT AUTHORIZATION [facility] [address], [place] [address] Signed was discontinued and metoprolol initiated for afib rate control. She was given more respiratory support and optimized from a fluid standpoint. She was noted to essentially "ride the vent." Not stimulated for her own spontaneous ventilations. Ultimately, her norepinephrine drip was able to be weaned off as her sepsis improved. Her weaning parameters appeared to be reasonable by June 19, 2017, and she was extubated to BiPAP support. She had an episode of ventiliatory decompensation once again at approximately 02:00 in the morning by June 20, 2017, requiring re-intubation. It was clear that the patient would be problematic for expedient extubation due to generalized weakness from her advanced age and the sepsis that she had endured. Conference was held with family regarding options of management including the option of comfort care measures. It was clear, however, that she had really only single organ failure and it was my feeling that this could be overcome with appropriate aggressive support. In full agreement of family, she underwent a tracheostomy on June 22, 2017, which was placed without problem. From that point, full respiratory support with a mechanical ventilator was undertaken. She did not have excessive secretions, but did not do well on ventilatory BiPAP trial and given her overall fluid status, diuresis was undertaken. The central line was changed when she had a temperature spike as well as changing of her Pratt catheter. She was not confirmed to have a central line infection. A nasoenteric feeding tube was placed in lieu of TPN that had been employed for nutritional support. She was considered to have ventilatory failure related primarily to generalized weakness, complicated by underlying congestive heart failure. Echocardiography confirmed pulmonary hypertension, enlarged left atrium and severe tricuspid regurgitation. Though the right pleural effusion was improving, a moderately large left pleural effusion developed. Later, the left pleural fluid was drained, intially with thoracentesis, and ultimately a chest tube. This assisted her weaning from the ventilator and did not reaccumulate. It was a transudative non infection fluid collection. She did have preservation of other organ systems including resumption of bowel function, good renal function, and no other organ system failure including clear mentation. Electronically Signed By: SHUKRI GOMEZ MD 07/24/17 0912 PATIENT NAME: SAEED OBRIEN DISCHARGE SUMMARY DATE OF : 32 PHYSICIAN: SHUKRI GOMEZ MD REPORT #: [id number] REPORT IS CONFIDENTIAL AND NOT TO BE RELEASED WITHOUT AUTHORIZATION [address] [address] Signed She was then progressively weaned from the ventilator to ultimately BiPAP support only alternating with tracheostomy mask supplementation and ultimately to trach mask only. A vocalizing plug for the tracheostomy was fitted allowing for speaking during the daytime. She was able to phonate and interact with family using the device. As her strength improved she transitioned to a tracheostomy plug, with the balloon deflated which she ultimately tolerated for 24 hours-- indicative of recovery of her ventilatory failure. The tracheostomy itself was ultimately removed. The tracheostomy site promptly sealed without any elaborate measures and she was by July 23, 2017, able to be discharged. By the time of discharge, she is ambulating with the assistance of a walker, is tolerating mechanical soft food without problem. The tracheostomy site is healed. Her bowel is functioning well. It is noted that she has underlying chronic lymphocytic leukemia and [place] [address] with 56% lymphocytes. During the course of her hospitalization, bradycardic episodes with Valsalva maneuvers were quite profound and on that basis, she was changed from digoxin, her usual medication to labetalol, which seemed to be better tolerated. DISCHARGE MEDICATIONS: Include: 1. Metoprolol 25 mg extended release at h.s. 2. Potassium chloride 10 mEq tablets 2 times daily. 3. Magnesium oxide 400 mg 1 tab p.o. daily. She will continue with: 1. Synthroid 75 mcg p.o. daily. 2. Folic acid 1 mg p.o. daily. 3. Timolol maleate eyedrops 1 drop each eye at h.s. 4. Pravastatin 40 mg p.o. daily. 5. Vitamin D3, 1000 units daily. 6. Calcium carbonate/vitamin D3, #2 p.o. daily. 7. Xalatan 2.5 mL drops each eye each day and restarted on Xarelto 20 mg p.o. daily. She will discontinue her moexipril, spironolactone, and digoxin. DISCHARGE DIAGNOSES: 1. Ischemic/necrotic mid small-bowel related to internal hernia causing generalized sepsis and ventilatory failure, status post laparoscopy with conversion to laparotomy in segmental excision. Electronically Signed By: SHUKRI GOMEZ MD 07/24/17 0912 PATIENT NAME: SAEED OBRIEN DISCHARGE SUMMARY DATE OF : 32 PHYSICIAN: SHUKRI GOMEZ MD REPORT #: [id number] REPORT IS CONFIDENTIAL AND NOT TO BE RELEASED WITHOUT AUTHORIZATION [facility] [address], [place] [address] Signed 2. Longstanding [id number] mitral regurgitation with a large left atrium and severe tricuspid regurgitation. 3. Pulmonary hypertension, considered [id number]. 4. Warm reactive antibody, difficulty of type and crossmatch. 5. Acute respiratory failure with hypercapnia. 6. Personal history of chronic lymphocytic leukemia. 7. History of melanoma without sign of metastases. FOLLOWUP PLAN: She is to return to see Dr. Guo within the next 1 to [address] Gomez. A prescription has been written also for a wheeled walker. MD STANLEY Irwin/SHAHRAML /[id number] cc: MD Yassine Bender MD W Norman Sitz, MD Electronically Signed By: SHUKRI GOMEZ MD 07/24/17911 PATIENT NAME: SAEED OBRIEN RYLEE DISCHARGE SUMMARY DATE OF : 32 PHYSICIAN: SHUKRI GOMEZ MD REPORT #: [id number] REPORT IS CONFIDENTIAL AND NOT TO BE RELEASED WITHOUT AUTHORIZATION
== END 2017-07-23 11:18 | disposition home or self-care (01) | DRG 3 ==
LOC: ED 16:42 → CCU 21:21 → MS 21:21 → CCU 06-14 21:00 → MS 07-17 16:45
PROVIDERS: Surgery; ADMIT Internal Medicine
PROC: 0W9G0ZZ Drainage of Peritoneal Cavity, Open Approach (ICD-10-PCS; principal; 2017-06-14 19:18)
PROC: 0DB80ZZ Excision of Small Intestine, Open Approach (ICD-10-PCS; principal; 2017-06-14 19:18)
PROC: 5A1955Z Respiratory Ventilation, Greater than 96 Consecutive Hours (ICD-10-PCS; principal; 2017-06-14 19:18)
PROC: 02HV33Z Insertion of Infusion Device into Superior Vena Cava, Percutaneous Approach (ICD-10-PCS; 2017-06-15)
PROC: 0B110F4 Bypass Trachea to Cutaneous with Tracheostomy Device, Open Approach (ICD-10-PCS; 2017-06-22)
PROC: 0DH63UZ Insertion of Feeding Device into Stomach, Percutaneous Approach (ICD-10-PCS; 2017-06-24)
PROC: 02HV33Z Insertion of Infusion Device into Superior Vena Cava, Percutaneous Approach (ICD-10-PCS; 2017-06-24)
PROC: 30233N1 Transfusion of Nonautologous Red Blood Cells into Peripheral Vein, Percutaneous Approach (ICD-10-PCS; 2017-07-02)
PROC: 0D20XUZ Change Feeding Device in Upper Intestinal Tract, External Approach (ICD-10-PCS; 2017-07-06)
PROC: 0W9B3ZZ Drainage of Left Pleural Cavity, Percutaneous Approach (ICD-10-PCS; 2017-07-11)
PROC: 0W9B00Z Drainage of Left Pleural Cavity with Drainage Device, Open Approach (ICD-10-PCS; 2017-07-12)
PROC: 0W9B00Z Drainage of Left Pleural Cavity with Drainage Device, Open Approach (ICD-10-PCS; 2017-07-12)
DX: K55.029 Acute infarction of small intestine, extent unspecified (principal); K66.1 Hemoperitoneum; K46.1 Unspecified abdominal hernia with gangrene; A41.9 Sepsis, unspecified organism; J96.02 Acute respiratory failure with hypercapnia; K45.0 Other specified abdominal hernia with obstruction, without gangrene; T85.518A Breakdown (mechanical) of other gastrointestinal prosthetic devices, implants and grafts, initial encounter; E87.2 Acidosis; T85.628A Displacement of other specified internal prosthetic devices, implants and grafts, initial encounter; J98.11 Atelectasis; Y83.2 Surgical operation with anastomosis, bypass or graft as the cause of abnormal reaction of the patient, or of later complication, without mention of misadventure at the time of the procedure; Y73.8 Miscellaneous gastroenterology and urology devices associated with adverse incidents, not elsewhere classified; Z79.01 Long term (current) use of anticoagulants; I48.2 Chronic atrial fibrillation; I27.20 Pulmonary hypertension, unspecified; I08.1 Rheumatic disorders of both mitral and tricuspid valves; Z85.6 Personal history of leukemia; Z92.21 Personal history of antineoplastic chemotherapy; Z85.820 Personal history of malignant melanoma of skin; Z90.710 Acquired absence of both cervix and uterus; Z87.891 Personal history of nicotine dependence
CPT/HCPCS: 00320; 00790; 31500; 31720; 32551; 36415; 36430; 36556; 36600; 51702; 71010; 71045; 74000; 74177; 76705; 80048; 80053; 80061; 80069; 80076; 80162; 80202; 80500; 81001; 82247; 82465; 82607; 82746; 82803; 83540; 83605; 83615; 83690; 83735; 83880; 83986; 84100; 84134; 84157; 84466; 84478; 84484; 84550; 85025; 85610; 85730; 86140; 86850; 86870; 86880; 86900; 86901; 86905; 86906; 86922; 87040; 87070; 87075; 87077; 87088; 87186; 87205; 88307; 89051; 93005; 93010; 93306; 94002; 94003; 94150; 94640; 94660; 94762; 94799; 97110; 97116; 97140; 97162; 97530; J0171; J0330; J0461; J0610; J0696; J1120; J1160; J1170; J1630; J1644; J1885; J2060; J2185; J2250; J2270; J2310; J2405; J2550; J2704; J2765; J2997; J3010; J3370; J3430; J3475; J3480; J7030; J7040; J7050; J7060; J7120; P9016; P9047; Q9967